=== PATIENT | female | born 1940 | race Caucasian/White ===

== ENCOUNTER → 2023-11-12 11:24 | Outpatient (REF) | payer MEDICARE, BC, SELFPAY | LOC: MRI 3T 11:24 | PROVIDERS: ATTENDING PHYSICIAN Orthopaedic Surgery; FAMILY PHYSICIAN Family Medicine | DX: M54.50 Low back pain, unspecified (principal) | CPT/HCPCS: 72148 ==

== ENCOUNTER → 2023-12-04 07:18 | Outpatient (REF) | payer MEDICARE, BC, SELFPAY ==
[2023-12-04] MEDS: LEXISCAN 0.400000000000000022 MG IV (09:27)
[2023-12-04] MEDS: FLUSH (NSS) 1 FLUSH IV (09:27)
== END ==
LOC: RCS 07:18
PROVIDERS: ATTENDING PHYSICIAN Internal Medicine Cardiovascular Disease; FAMILY PHYSICIAN Family Medicine
DX: R07.9 Chest pain, unspecified (principal)
CPT/HCPCS: 78452; 93017; A9500; J2785

== ENCOUNTER 2023-12-06 06:07 | Inpatient (IN) | payer MEDICARE, BC, SELFPAY ==
--- NOTE | 2023-10-31 09:43 | CM ---
Patient is scheduled for an elective R TKR on 12/06/23. Spoke with patient prior to surgery via telephone. Patient had a L TKR at in 2019. Reintroduced role of Orthopedic Navigator. Patient reports that she lives alone in a two story home. There
are four steps to enter (left ascending rail) and a flight of steps to the second floor (right ascending rail). There is no first floor bathroom. She currently functions independently and occasionally uses a cane. She also has a rolling walker. She
has never had VN services. PCP is Zana Lou.
Discussed orthopedic program and post surgical plans. Reviewed anticipated length of stay and that goal is for her to return home at discharge. Also reviewed outpatient PT and DME she will need. Patient is in agreement with tentative plan and states
that her son and then a friend will stay with her. She will go directly to outpatient PT at [facility].
Patient will complete online education.
Plan: Orthopedic Navigator will remain available to assist with the care of patient and will reassess discharge needs after surgery.
[2023-11-15 08:17] VITALS: BMI 32.0
[2023-11-15 08:55] LABS: Hematocrit 39.5 % (37.0-47.0); Hemoglobin 13.1 g/dL (12.0-16.0); Mean Corp Hgb Conc. 33.2 g/dL (33.0-37.0); Mean Corpuscular Hgb 29.1 pg (27.0-31.0); Mean Corpuscular Volume 87.8 fL (81.0-99.0); Mean Platelet Volume 9.8 fL (7.4-10.4); Platelet Count 215 10^3/uL (130-400); White Blood Cell Count 6.3 10^3/uL (4.8-10.8)
[2023-11-15 09:09] LABS: ALT (SGPT) 14 U/L (0-35); AST (SGOT) 22 U/L (14-36); Albumin 4.1 g/dl (3.5-5.0); Alkaline Phosphatase 94 U/L (38-126); Blood Urea Nitrogen 17 mg/dl (7-17); Calcium 9.9 mg/dl (8.4-10.2); Carbon Dioxide 27 mmol/L (22-30); Chloride 103 mmol/L (98-107); Estimated Creatinine Clearance 58 ml/min; Glucose 99 mg/dl (70-99); Potassium 4.2 mmol/L (3.5-5.1); Sodium 137 mmol/L (135-145); Total Bilirubin 0.8 mg/dl (0.2-1.3); Total Protein 7.1 g/dl (6.3-8.2); eGFR > 60.00
[2023-11-15 16:11] VITALS: BMI 32.0
[2023-12-06] VITALS (25 sets, daily range): BP systolic 120–229; BP diastolic 57–183; PULSE 93–97; O2SAT 98; BMI 32.0
[2023-12-06] MEDS: CELEBREX 200 MG PO (06:59)
[2023-12-06] MEDS: TYLENOL 650 MG PO ×3 (06:59→19:43)
[2023-12-06] MEDS: NORMOSOL-R 1000 IV ×2 (07:00→11:17)
[2023-12-06 07:07] LABS: Glucose - Point of Care 107 mg/dl (70-99)
[2023-12-06 10:41] LABS: Glucose - Point of Care 112 mg/dl (70-99)
[2023-12-06] MEDS: APRESOLINE 5 MG IV ×3 (11:00→11:30)
[2023-12-06] MEDS: DILAUDID 0.25 MG IV (11:28)
[2023-12-06 11:48] LABS: Glucose - Point of Care 99 mg/dl (70-99)
[2023-12-06 14:17] LABS: Glucose - Point of Care 124 mg/dl (70-99)
[2023-12-06] MEDS: TYLENOL PO (15:16)
[2023-12-06] MEDS: ANCEF 5 IV (15:23)
[2023-12-06] MEDS: ZOFRAN 4 MG IV (15:32)
--- NOTE | 2023-12-06 15:42 | PTCARENOTE ---
Patient reporting nausea, dizziness while in chair. BP 84/48, diaphoretic. Assisted back into bed, placed in Trendelenberg position. BP reassessed, now 131/64. Given zofran. Now reporting relief of symptoms.
[2023-12-06 17:12] LABS: Glucose - Point of Care 169 mg/dl (70-99)
[2023-12-06] MEDS: LIPITOR 10 MG PO (17:47)
[2023-12-06] MEDS: ASPIRIN 325 MG PO (17:47)
[2023-12-06] MEDS: TORADOL 15 MG IV (17:50)
[2023-12-06] MEDS: NOVOLOG FLEXPEN 4 UNITS SC (17:53)
[2023-12-06] MEDS: NOVOLOG FLEXPEN-MODERATE RESISTANCE 1 UNITS SC (17:53)
[2023-12-06] MEDS: GLUCOPHAGE 500 MG PO (17:53)
[2023-12-06] MEDS: BACTROBAN 2% OINTMENT 1 APPLIC NASAL (19:43)
[2023-12-06] MEDS: SENOKOT 17.1999999999999993 MG PO (19:44)
[2023-12-06] MEDS: COLACE 100 MG PO (19:44)
[2023-12-06 21:22] LABS: Glucose - Point of Care 216 mg/dl (70-99)
[2023-12-06] MEDS: NEURONTIN 300 MG PO (22:07)
[2023-12-06] MEDS: PEPCID 40 MG PO (22:08)
[2023-12-07] MEDS: ANCEF 5 IV (00:07)
[2023-12-07] MEDS: TYLENOL PO ×2 (00:10→04:27)
[2023-12-07 03:05] VITALS: BP 139/68
[2023-12-07] MEDS: TORADOL IV (05:46)
[2023-12-07 07:29] LABS: Glucose - Point of Care 160 mg/dl (70-99)
[2023-12-07 07:53] VITALS: BP 122/71
[2023-12-07] MEDS: SENOKOT 17.1999999999999993 MG PO (08:07)
[2023-12-07] MEDS: TYLENOL 650 MG PO (08:07)
[2023-12-07] MEDS: ASPIRIN 325 MG PO (08:07)
[2023-12-07] MEDS: MOBIC 15 MG PO (08:08)
[2023-12-07] MEDS: COLACE 100 MG PO (08:08)
[2023-12-07] MEDS: GLUCOPHAGE 500 MG PO (08:08)
[2023-12-07] MEDS: BACTROBAN 2% OINTMENT 1 APPLIC NASAL (08:10)
[2023-12-07] MEDS: NOVOLOG FLEXPEN-MODERATE RESISTANCE 1 UNITS SC (08:10)
[2023-12-07] MEDS: NOVOLOG FLEXPEN 4 UNITS SC (08:11)
[2023-12-07 09:38] VITALS: BP 156/70
--- NOTE | 2023-12-07 10:07 | CM ---
Addendum entered by Maria A Garcia 12/07/23 10:15:
Met with patient and her son, Eugenio, after therapy. Reinforced to both that patient needs to use the walker at home. Also explained that commode is being issued since she has no first floor bathroom. Son confirmed that he will be staying with
patient. Neither have any concerns about discharge.
Original Note:
Reviewed chart and held rounds with PT, OT and nursing. Patient admitted as planned for elective R TKR. Met with patient at bedside. Confirmed information previously obtained for assessment. Also discussed discharge plans. The plan is for patient to
return home at discharge. Her son and a friend will be staying with her when she first goes home. Patient will go directly to outpatient PT and will go to [facility]. She has an appointment scheduled for Sunday, 12/09. Reviewed need to schedule
follow up appointment with PA in Dr. Wilkins's office for staple removal.
Patient has a rolling walker and cane. She will need a commode issued for home use as she has no first floor bathroom. Script obtained and given to OT.
She will use [facility] for discharge prescriptions.
[2023-12-07 10:08] VITALS: BP 156/72; PULSE 88; O2SAT 94
--- NOTE | 2023-12-07 10:30 | W.PN.ORTHO ---
Today's Communication / Plan
-
d/c
Assessment
.
Distal Motor Intact: Yes
Dressing:
Clean, dry and intact.
Plan
.
Surgery / Date: 12/06/[address] Wilkins
DVT Prophylaxis: Aspirin
Activity:
Out of bed.
PT/OT
Discharge Plan: Home w/ Outpatient PT
Subjective
.
.:
Patient resting comfortably.
Vital Signs and Labs
.
Vital Signs and Labs:
Lab Results
11/15/23 08:09
11/15/23 08:09
Temp Pulse Resp BP Pulse Ox
98.9 F 103 19 122/71 95
12/07/23 07:53 12/07/23 07:53 12/07/23 07:53 12/07/23 07:53 12/07/23 07:53
Non-invasive Hgb result: 11.6
Physical Exam
-
HEENT: No pallor, cyanosis, or jaundice.
EXTREMITIES: strength equal, no calf pain with palpation
FIBERGLASS ROVING WINDER: AOx3.lay out machine operator grossly intact
--- NOTE | 2023-12-07 10:46 | W.DS.TRANS ---
DC Summary - Attending Anesthesiologist
-
Discharge Instructions:
Sleep Apnea Risk Low
Discharge Diagnosis/Procedures 12/06/[address] Wilkins
Diet Diabetic, Carb Controlled
Activity With Walker,With assistance
Driving Restrictions No driving
Bathing Restrictions OK to Shower
Other Services PT
Instructions:
Stand-Alone Forms: Total Hip/Knee Replacement D/C
Changes to Home Medications: Yes
Discharge Medications:
DC Medications w/original date entered in [employer]
Biofreeze (menthol) 1 applic topical DAILYPRN PRN apply to lower back 08/20/23
ibuprofen 200 mg tablet (Advil) 400 mg PO PRN PRN pain 08/20/23
losartan 25 mg tablet 50 mg PO DAILY 08/20/23
metformin 500 mg tablet 500 mg PO BID 08/20/23
simvastatin 10 mg tablet 10 mg PO QPM 08/20/23
therapeutic multivitamin 1 tab PO DAILY 08/20/23
multivitamin with minerals (Hair,Skin and Nails tablet) 2 tab PO DAILY 11/09/23
mupirocin 2 % topical ointment 1 applic topical BID infection prevention #1 tube 11/15/23
Saccharomyces boulardii 250 mg capsule (Florastor) 250 mg PO BID #1 cap 12/07/23
acetaminophen 325 mg capsule (Tylenol) 650 mg (2 x 325 mg) PO QID #2 caps 12/07/23
aspirin 325 mg tablet 325 mg PO DAILY blood clot prevention #1 tab 12/07/23
cefadroxil 500 mg capsule 500 mg PO BID infection prevention #14 caps 12/07/23
celecoxib 200 mg capsule 200 mg PO DAILY anti-inflammatory #14 caps 12/07/23
docusate sodium 100 mg capsule (Colace) 100 mg PO BID stool softner #1 cap 12/07/23
famotidine 20 mg tablet 20 mg PO HS GI prophylaxis #30 tabs 12/07/23
gabapentin 300 mg capsule 300 mg PO HS sleep/pain #10 caps 12/07/23
magnesium hydroxide 400 mg/5 mL oral suspension (Milk of Magnesia) 30 ml PO HS PRN Constipation #1 mL 12/07/23
ondansetron 4 mg disintegrating tablet 4 mg PO Q6H PRN n/v #20 tabs 12/07/23
sennosides 8.6 mg tablet (Senokot) 17.2 mg (2 x 8.6 mg) PO BID laxative #2 tabs 12/07/23
tramadol 50 mg tablet 50 mg PO Q6H PRN 1 tab moderate pain, 2 if severe #30 tabs 12/07/23
Home Medication Changes
aspirin 325 mg tablet 325 mg PO DAILY blood clot prevention #1 tab 12/07/23�
cefadroxil 500 mg capsule 500 mg PO BID infection prevention #14 caps 12/07/23�
celecoxib 200 mg capsule 200 mg PO DAILY anti-inflammatory #14 caps 12/07/23�
famotidine 20 mg tablet 20 mg PO HS GI prophylaxis #30 tabs 12/07/23�
gabapentin 300 mg capsule 300 mg PO HS sleep/pain #10 caps 12/07/23�
ondansetron 4 mg disintegrating tablet 4 mg PO Q6H PRN n/v #20 tabs 12/07/23�
tramadol 50 mg tablet 50 mg PO Q6H PRN 1 tab moderate pain, 2 if severe #30 tabs 12/07/23�
Pending Results: No
[2023-12-07 11:04] VITALS: BP 140/62
[2023-12-07 11:06] VITALS: BP 156/72; PULSE 88; O2SAT 94
== END 2023-12-07 11:25 | disposition home or self-care (01) | DRG 470 ==
LOC: 2 SOUTH 06:07
PROVIDERS: ADMITTING PHYSICIAN Orthopaedic Surgery; FAMILY PHYSICIAN Family Medicine
PROC: 0SRC0J9 Replacement of Right Knee Joint with Synthetic Substitute, Cemented, Open Approach (ICD-10-PCS; 2023-12-06)
DX: M17.11 Unilateral primary osteoarthritis, right knee (principal)
CPT/HCPCS: 36415; 73560; 78452; 80053; 82962; 83036; 85027; 87070; 93005; 97110; 97116; 97162; 97166; 97535; A9500; C1713; C1776

== ENCOUNTER → 2025-03-31 10:42 | Outpatient (REF) | payer MEDICARE, BC, SELFPAY | LOC: WDC 10:42 | PROVIDERS: ATTENDING PHYSICIAN Family Medicine; FAMILY PHYSICIAN Family Medicine | DX: Z12.31 Encounter for screening mammogram for malignant neoplasm of breast (principal) | CPT/HCPCS: 77063; 77067 ==

== ENCOUNTER 2025-04-03 17:14 | Inpatient (IN) | payer MEDICARE, BC, SELFPAY ==
[2025-04-03] VITALS (18 sets, daily range): BP systolic 80–225; BP diastolic 40–106; BMI 33.2; BMI 32.2
[2025-04-03 15:05] LABS: Hematocrit 34.5 % (37.0-47.0); Hemoglobin 11.7 g/dL (12.0-16.0); Mean Corp Hgb Conc. 33.9 g/dL (33.0-37.0); Mean Corpuscular Volume 87.1 fL (81.0-99.0); Nucleated Red Blood Cells % 0 %; Platelet Count 192 10^3/uL (130-400); Red Cell Dist. Width 13.8 % (11.5-14.5)
[2025-04-03] MEDS: DILAUDID 1 MG IV (15:11)
[2025-04-03] MEDS: ZOFRAN 4 MG IV ×2 (15:11→16:20)
[2025-04-03 15:17] LABS: ALT (SGPT) 13 U/L (0-35); AST (SGOT) 20 U/L (14-36); Albumin 3.7 g/dl (3.5-5.0); Alkaline Phosphatase 99 U/L (38-126); Blood Urea Nitrogen 15 mg/dl (7-17); Calcium 9.0 mg/dl (8.4-10.2); Carbon Dioxide 29 mmol/L (22-30); Chloride 103 mmol/L (98-107); Estimated Creatinine Clearance 57 ml/min; Glucose 119 mg/dl (70-99); Potassium 3.8 mmol/L (3.5-5.1); Sodium 137 mmol/L (135-145); Total Protein 6.1 g/dl (6.3-8.2); eGFR > 60.00
--- NOTE | 2025-04-03 16:17 | ED.GENMED ---
History of Present Illness
General
Chief Complaint: Musculo-Skeletal Complaint
Source: patient and ambulance crew
Time Seen by Provider: 04/03/25 15:00
Nursing documentation reviewed up to this point in time: agreed with
History of Present Illness
History of Present Illness:
Note:
CHIEF COMPLAINT(S)
Right hip pain following a fall.
HISTORY OF PRESENT ILLNESS
The patient is an 84-year-old individual who reports falling at home while carrying packages from their car. The patient states, 'I got out of my car, and Kindra been seven of the three packages.' The fall resulted in immediate pain localized to the
right hip area. The patient observed that the right leg appears shortened and externally rotated, indicating a potential injury. The patient denies hitting their head or experiencing any other injuries from the fall. There is significant concern for
a fracture given these clinical signs, and the patient reports significant pain in the affected area.
PAST MEDICAL AND SURIGICAL HISTORY
The patient has undergone bilateral knee replacements in the past.
MEDICATIONS
The patient is currently taking medication for blood pressure and Metformin for diabetes.
REVIEW OF SYSTEMS
- Musculoskeletal: Reports right hip pain following a fall, with the right leg appearing shortened and externally rotated.
- Endocrine: Has a history of diabetes, managed with Metformin.
PHYSICAL EXAM
- General: Alert, no acute distress.
- Skin: Warm, dry.
- Head: Normocephalic, atraumatic.
- Neck: Supple, trachea midline.
- Eye, Ears, Nose, Mouth, and Throat: Oral mucosa moist.
- Cardiovascular: Normal peripheral perfusion, no edema.
- Respiratory: Respirations are non-labored, lungs clear.
- Musculoskeletal: Right leg shortened and externally rotated, indicative of trauma. Scars present in midline vertically on bilateral knees.
- Neurological: Alert and oriented to person, place, time, and situation, no focal neurological deficit observed.
- Psychiatric: Cooperative, appropriate mood & affect.
PLAN
- Administer pain medication for hip discomfort.
- Obtain X-rays to confirm suspicion of fracture and assess the extent of injury.
- Discuss potential need for hospital admission for surgical intervention following the review of imaging results.
DIFFERENTIAL DIAGNOSIS
The Differential Diagnosis includes, in no particular order and is not limited to:
1. Hip fracture
2. Hip dislocation
3. Femoral neck fracture
4. Radiological examination pending fracture
5. Pelvic fracture
6. Osteoarthritis exacerbation
7. Hip contusion
8. Trochanteric bursitis
9. Acetabular fracture
10. Sacral insufficiency fracture
CARE-UPDATE
04/03/25 - 16:28
X-ray confirms intertrochanteric fracture of the right hip. Patient will be admitted to hospitalists with orders to remain NPO after midnight in preparation for surgery scheduled for tomorrow.
EKG
My independent EKG interpretation is:
- Time of EKG: Not specified
- Rhythm: Normal sinus rhythm
- Heart Rate: 77
- OR Interval: normal
- QRS Duration: Normal
- QT Interval: Normal
- [place]: Normal
- Abnormalities: No signs of ischemia indicated
Disposition:
SUMMARY OF ENCOUNTER
The patient is an 84-year-old individual who presented to the emergency department following a fall at home. The patient experienced immediate right hip pain, with observable physical signs of trauma including a shortened and externally rotated
right leg. An X-ray confirmed an intertrochanteric fracture of the right hip. Given the risk factors and confirmation of a fracture, the patient was managed with plans for surgical intervention.
DISPOSITION
Admit
ASSESSMENT
Intertrochanteric fracture of the right femur.
PLAN
The patient will be admitted under the care of hospitalists. An orthopedic consultation has been obtained. Patient will remain NPO after midnight in preparation for surgery scheduled for the following day.
INDEPENDENT REVIEW OF LABS AND INTERPRETATION OF TESTS
- My independent X-ray interpretation confirms the intertrochanteric fracture of the right hip.
MANAGEMENT OF THE PATIENTS CARE WAS DISCUSSED WITH
Orthopedics consulted.
MEDICAL DECISION MAKING
-Complexity of Data Reviewed: Chronic conditions affecting care [bilateral knee replacements, hypertension, diabetes]
Data:
Category 1
My independent interpretation of the X-ray confirms an intertrochanteric fracture of the right hip.
-Risk:
Prescription medication was prescribed for pain management.
DIAGNOSIS
- Intertrochanteric fracture of the right femur (ICD-10-CM S72.143A)
Phy Exam
Physical Exam
Physical Exam:
.
Course
Orders/Labs/Results
Orders:
Orders
04/03/25 14:44
Hip, Right 2-3 Views [CR Hip - RT w/wo Pel 2-3 Vw*] Urgent
Comment:
Reason For Exam: pain after a fall
Include a pelvis x-ray?: Yes
04/03/25 14:56
Complete Blood Count/With Diff Urgent
Comprehensive Metabolic Panel Urgent
04/03/25 15:00
HYDROmorphone [Dilaudid] 1 mg IV NOW STA
Ondansetron Injectable [Zofran] 4 mg IV NOW STA
04/03/25 15:01
Electrocardiogram (*1) Stat
Reason for Study: PreOp
Electrocardiogram (*1) Urgent
EKG- Treatment ONCE
04/03/25 15:13
Type+Screen Urgent
04/03/25 16:16
Ondansetron Injectable [Zofran] 4 mg IV NOW STA
Abnormal Lab Results
04/03/25
14:56
RBC 3.96 L 10^6/uL
(4.20-5.40)
Hgb 11.7 L g/dL
(12.0-16.0)
Hct 34.5 L %
(37.0-47.0)
Glucose 119 H mg/dl
(70-99)
Total Protein 6.1 L g/dl
(6.3-8.2)
04/03/25 14:56
04/03/25 14:56
Vital Signs
Initial and Last Documented VS:
Initial Vital Signs
Temp Pulse Resp BP Pulse Ox
98.3 F 82 18 195/90 95
04/03/25 14:36 04/03/25 14:36 04/03/25 14:36 04/03/25 14:36 04/03/25 14:36
Last Documented Vital Signs
Temp Pulse Resp BP Pulse Ox
98.3 F 82 18 195/90 95
04/03/25 14:36 04/03/25 14:36 04/03/25 14:36 04/03/25 14:36 04/03/25 16:20
*Pulse Oximetry
SaO2: 95
Oxygen Mode of Delivery: Room air
Patient hypoxic: no
*Critical Care Note
Total Time (30-74mins, 75-104mins- exclusive of procedures): Not Applicable
ED Attending Note
-
Portions of this chart may have been created with voice recognition software.� Occasional wrong word or��sound alike� substitutions may have occurred due to the inherent limitations of voice recognition software.
Discharge Plan
Departure
Patient Disposition: Admit
Date of Disposition: 04/03/25
Time of Disposition: 16:15
Admit to: Med/Surg
Presentation/result/management discussed w/ accepting MD/DO: Hospitalist
Patient with high blood pressure during this ER visit?: Yes
Condition: Good
Discharge Problem:
Closed intertrochanteric fracture of right femur
Prescriptions:
No Action
metformin 500 mg Tablet
500 mg PO BID
simvastatin 10 mg Tablet
10 mg PO QPM
therapeutic multivitamin Tablet
1 tab PO DAILY
losartan 25 mg Tablet
50 mg PO DAILY
ibuprofen [Advil] 200 mg Tablet
400 mg PO PRN PRN (Reason: pain)
Biofreeze (menthol)
1 applic topical DAILYPRN PRN (Reason: apply to lower back)
Hair,Skin and Nails Tablet
2 tab PO DAILY
mupirocin 2 % ointment
1 applic topical BID Qty: 1 0RF
Patient Comments:
Patient adminisered this medication @ 05:00 today 12/06/23.
aspirin 325 mg tablet
325 mg PO DAILY Qty: 1 0RF
Rx Instructions:
Take with food
celecoxib 200 mg capsule
200 mg PO DAILY Qty: 14 0RF
Rx Instructions:
*take with food
*space out 2 hours from aspirin
cefadroxil 500 mg capsule
500 mg PO BID Qty: 14 0RF
Rx Instructions:
*Take w/ food
*Take w/ probiotic
*POST-OP USE
docusate sodium [Colace] 100 mg capsule
100 mg PO BID Qty: 1 0RF
famotidine 20 mg tablet
20 mg PO HS Qty: 30 0RF
Rx Instructions:
post-op
Saccharomyces boulardii [Florastor] 250 mg capsule
250 mg PO BID Qty: 1 0RF
gabapentin 300 mg capsule
300 mg PO HS Qty: 10 0RF
Rx Instructions:
non-narcotic
sennosides [Senokot] 8.6 mg tablet
17.2 mg PO BID Qty: 2 0RF
magnesium hydroxide [Milk of Magnesia] 400 mg/5 mL suspension
30 ml PO HS PRN (Reason: Constipation) Qty: 1 0RF
ondansetron 4 mg tablet,disintegrating
4 mg PO Q6H PRN (Reason: n/v) Qty: 20 0RF
Rx Instructions:
take 1/2h b/f pain med if recurrent nausea
allow to dissolve in mouth w/o water
acetaminophen [Tylenol] 325 mg capsule
650 mg PO QID Qty: 2 0RF
tramadol 50 mg tablet
50 mg PO Q6H PRN (Reason: 1 tab moderate pain, 2 if severe) Qty: 30 0RF
Rx Instructions:
ongoing therapy
Referrals:
Zana Lou DO [Family Provider, Family Practice]
Interventions
Interventions:
*Risk Screen - Suicide Last Done: 04/03/25 14:36
*General Assessment Last Done: 04/03/25 14:36
*Neglect/Abuse Screening Last Done: 04/03/25 14:36
*ED- Fall Risk Assessment Last Done: 04/03/25 14:41
*ED COVID-19 Vaccine History Last Done: 04/03/25 14:41
ED-Musculoskeletal Assessment Last Done: 04/03/25 14:43
Discharge Date and Time
Print Language: AZERBAIJANI
--- NOTE | 2025-04-03 16:17 | HPS.HSE ---
Addendum entered and electronically signed by Quoc Valdovinos MD 04/03/25 17:27:
This is an addendum to H&P written by Marisela Gerber on 04/03/2025. �Patient seen and examined independently with DIRECTOR TRIAL.
84-year-old female past medical history of hypertension, hypercholesteremia, osteoarthritis, diabetes, presenting with mechanical fall with injury to right hip. Has csome chest pain after the fall.�
Vital signs show blood pressure up to 225/89. Chest tender to palpation.�
Labs unremarkable.
Hip x-ray shows comminuted and mildly displaced intertrochanteric fracture which extends into proximal femur.
Tylenol, Dilaudid, Percocet as needed for pain. �Orthopedics consulted. �N.p.o. postmidnight for surgery tomorrow. �Patient without any prior cardiac history and low risk for post cardiac complications. �Hopefully blood pressure should improve with
pain control.
Original Note:
Family Physician
-
Family Physician: Zana Lou
Chief Complaint
-
right hip pain
History of Present Illness
Patient is a 84-year-old female with past medical history significant for hypertension, hyperlipidemia and DM - II who presented to [facility] ED for evaluation of right hip pain. Patient reports that she was carrying bags of groceries into the house when
she missed the curb and fell landing on her right hip. She denies any head strike. Denies any other discomfort or injuries.
Medical History
Past Medical History
Past Medical History: Reports Other
Additional Past Medical History:
hypertension
hyperlipidemia
DM - II
Past Surgical History: Reports Other
Additional Past Surgical History:
Arthroscopy with chondroplasty, medial meniscectomy + partial synovectomy - left - 04/02/18
Left TKR - 05/22/2019
Rt arm Surgery w/ Glenn
Appendectomy
X2
cataract bilateral
Right TKA 12/06/2023 DB
RT L3-4 ILESI NO SED 01/21/24
RT L3-4 ILESI NO SED 08.27.24
Social History
Tobacco: Non-smoker
Alcohol: Occasional (rare)
Drug: None
Living: Alone
Family History
Family History: Not pertinent
Allergies / Home Medications
Allergies reflects when Allergies were last updated in [employer].
Home Medications with original date entered in [employer]
Allergy/Medication List:
Allergies
Allergy/AdvReac Type Severity Reaction Status Date / Time
No Known Allergies Allergy Verified 04/03/25 14:35
Home Medications
losartan 25 mg tablet 25 mg PO BID Blood Pressure 08/20/23
metformin 500 mg tablet 500 mg PO BID@0800,1700 Diabetes 08/20/23
simvastatin 10 mg tablet 10 mg PO QPM High Cholesterol 08/20/23
therapeutic multivitamin 1 tab PO DAILY Supplement 08/20/23
biotin 5,000 mcg sublingual tablet 5,000 mcg sublingual DAILY Supplement 04/03/25
multivitamin with minerals (Hair,Skin and Nails tablet) 1 tab PO DAILY Supplement 04/03/25
Review of Systems
-
History Source: Patient
Constitutional: Reports No Symptoms
EENT: Reports No Symptoms
Respiratory: Reports No Symptoms
Cardiac: Reports No Symptoms
Abdomen/GI: Reports No Symptoms
: Reports No Symptoms
Musculoskeletal: Reports Joint Pain (right hip pain )
Skin: Reports No Symptoms
Neurological: Reports No Symptoms
Endocrine: Reports No Symptoms
Hematologic/Lymphatic: Reports No Symptoms
Psych: Reports No Symptoms
Physical Exam
Vital Signs
Vital Signs
Temp Pulse Resp BP Pulse Ox
98.3 F 82 18 195/90 95
04/03/25 14:36 04/03/25 14:36 04/03/25 14:36 04/03/25 14:36 04/03/25 14:36
Physical Exam
General: Well Developed, Well Nourished, No Apparent Distress, Conversant, Pain and Obese
HEENT: NormoCephalic, Moist mucous membranes and Atraumatic
Respiratory: Clear and Non Labored Respirations
Cardiac: S1/S2 and Regular Rhythm; No Murmur, Rub or Gallop
Breast: Deferred by me
GI: Soft, Non Tender, Non Distended and Normal Bowel Sounds
Rectal: Deferred by Provider
Genito-urinary: Deferred by me
Musculoskeletal: No Clubbing, No Cyanosis and Other (right hip pain, right leg shortened and externally rotated)
Skin: Warm and IV/Catheter Site
Neuro: Awake, AO x 3 and Nonfocal/grossly intact
Psych: Calm and Intact Judgment/Insight
Laboratory Results
-
04/03/25 14:56
04/03/25 14:56
Laboratory Results
Total Bilirubin 0.7 mg/dl (0.2-1.3) 04/03/25 14:56
AST 20 U/L (14-36) 04/03/25 14:56
ALT 13 U/L (0-35) 04/03/25 14:56
Alkaline Phosphatase 99 U/L (38-126) 04/03/25 14:56
Data Reviewed
-
Diagnostic Radiology: Report Reviewed by me (Rt hip: Comminuted and mildly displaced intertrochanteric fracture which extends into the proximal femur.)
Medical Tests (Nuc Med, Echo, EKG etc): Discussed with Physician (EKG: NORMAL SINUS RHYTHM CANNOT RULE OUT ANTERIOR INFARCT (CITED ON OR BEFORE 06-Dec-2023))
Lab Data: Labs Reviewed by me
Impression/Plan
-
IMPRESSION/PLAN:
#intertrochanteric fracture of right femur 2/2 mechanical fall
EKG: NORMAL SINUS RHYTHM
CANNOT RULE OUT ANTERIOR INFARCT (CITED ON OR BEFORE 06-Dec-2023)
right hip x-ray: Comminuted and mildly displaced intertrochanteric fracture which extends into the proximal femur.
- Admit to med/surg
- Consult Orthopedics
- pain regimen
- antiemetics
#hypertension
- continue losartan
#hyperlipidemia
- continue simvastatin
#DM - II
- hold metformin
- AccuCheck AC & HS
- SSI
Code status: full code
DVT prophylaxis: Lovenox sq
[2025-04-03] MEDS: LIPITOR 10 MG PO (21:39)
[2025-04-03] MEDS: COZAAR PO (22:02)
[2025-04-03] MEDS: NSS 500 IV (22:11)
[2025-04-03 22:20] LABS: Glucose - Point of Care 178 mg/dl (70-99)
--- NOTE | 2025-04-03 22:40 | TRANSFER ---
Received pt from ED at 1915 dx close right femur fx, RLE shortened and externally rotated. Right hip developing bruise. Pt has N/V w pain medications, given emesis bag. No c/o pain at time of assessment. VS as documented. Purewick in place, bed in
lowest position. Call jaquez within reach. Patient and family updated on plan of care.
[2025-04-03] MEDS: NSS 1000 IV (23:25)
[2025-04-04] VITALS (10 sets, daily range): BP systolic 96–144; BP diastolic 54–66; PULSE 87–90; O2SAT 98
--- NOTE | 2025-04-04 07:25 | CON.ORTHO ---
Consultation
-
Date/Time Consultation Requested: 04/03/2025; time unknown
Date/Time Consultation Performed: 04/04/2025; 0715
Requesting Provider: unknown
Performing Provider: Autumn Mayer PA-C / Dr. Sukhdeep Cornejo
Reason for Consultation: Right intertrochanteric femur fracture
Consultation - Orthopedics
History
Ms. Brantley is an 84 year old female with PMH of hypertension, hyperlipidemia and DM - II seen today for her right hip. She reports she was carrying three large bags into the house yesterday when she lost her balance and fell. She reports immediate
onset of pain in the hip, and was unable to get up off the ground. She was able to call her neighbor who was also unable to help her get up. She was brought to via EMS where x-rays revealed an intertrochanteric femur fracture. She is resting
comfortably in bed this morning. She endorses pain in the hip with movement, but denies pain elsewhere.
Allergies / Home Medications
Allergy/AdvReac Type Severity Reaction Status Date / Time
No Known Allergies Allergy Verified 04/03/25 14:35
�Medication �Instructions �Recorded
losartan 25 mg tablet 25 mg PO BID Blood Pressure 08/20/23
metformin 500 mg tablet 500 mg PO BID@0800,1700 Diabetes 08/20/23
simvastatin 10 mg tablet 10 mg PO QPM High Cholesterol 08/20/23
therapeutic multivitamin 1 tab PO DAILY Supplement 08/20/23
biotin 5,000 mcg sublingual tablet 5,000 mcg sublingual DAILY 04/03/25
Supplement
docusate sodium 100 mg capsule 200 mg PO PRN constipation 04/03/25
(Colace)
multivitamin with minerals 1 tab PO DAILY Supplement 04/03/25
(Hair,Skin and Nails tablet)
Vital Signs / Lab Results
Temp Pulse Resp BP Pulse Ox
97.7 F 79 17 107/71 97
04/03/25 23:06 04/03/25 23:20 04/03/25 19:50 04/03/25 23:20 04/03/25 23:06
04/03/25 14:56
04/03/25 14:56
IMPRESSION:
Comminuted and mildly displaced intertrochanteric fracture which extends into the proximal femur.
Directed exam of the right lower extremity reveals leg shortened and externally rotated. No significant tenderness about the hip. Thigh soft and compressible. ROM deferred secondary to known fracture. Positive log roll. Calf soft and nontender.
Patient able to wiggle toes, plantar and dorsiflex ankle. Neurovascularly intact distally.
Assessment / Plan
Right intertrochanteric femur fracture
--Unfortunately, Genny sustained a right intertrochanteric femur fracture in her fall. I recommend proceeding with a right hip cephalomedullary nail. The risks, benefits, alternatives, recovery process and potential complications were discussed in
detail. She verbalized understanding and would like to proceed with surgery. Surgical and blood consents have been signed and placed on patient chart. We will proceed to OR this morning under the direction of Dr. Cornejo.
--NPO until surgery.
--NWB until surgery.
--Pain control prn.
--T+S completed.
--Ancef ordered to OR.
--Orthopedics will continue to follow along.
--- NOTE | 2025-04-04 07:36 | W.PN.HOSP.TC ---
Today's Communication/Plan
-
se PN
Assessment / Plan
Assessment / Plan
84yo F with PMHX of oHTN, DM, HLD came after fall when she tripped over the curb while carrying groseries. No LOC reported. Found comminuted, mildly displaced and minimally impacted fracture of the proximal right femur
A/P:
#comminuted, mildly displaced and minimally impacted fracture of the proximal right femur
Ortho for mgmt
pain mgmgt
PT/OT when ready
Patient reports no recent respiratory illness, not a smoker, does not have Hx of cardiac or pulmonary disease, EKG without significant ST changes or TWI (Isolatr in single lateral lead only), considered to be low risk for intermediate risk
procedure, holding Losartan ahead of procedure
#DM type 2 with unspecified complications
Accuchecks, Insulin SS, DM diet when ready
hold metformin while inpatient
#HLD
#EssentiL HTN
cont hoem meds
DVT ppx lovenox
Full code
I have spent at least 51min reviewing chart, test results, communication with consultants and providing direct patient care
Anticipated Discharge: > 48 hours
Subjective/Interval History
-
Date of Service: April 04, 2025
Objective Data
-
Vital Signs:
Vital Signs
Temp Pulse Resp BP Pulse Ox
97.7 F 79 17 107/71 97
04/03/25 23:06 04/03/25 23:20 04/03/25 19:50 04/03/25 23:20 04/03/25 23:06
I&O
04/03/25 04/04/25 04/05/25
06:59 06:59 06:59
Intake Total 1510 / 1510
Output Total 400 / 400
Balance 1110 / 1110
Review of Systems
-
History Source: Patient
All other systems: Reviewed and negative
Physical Exam
-
General: No Apparent Distress
HEENT: Normocephalic and Hearing Impaired
Respiratory: Clear to Auscultation
GI: Soft, Nontender and Nondistended
Skin: Warm
Neuro: Awake, Alert, Oriented and AO x 3
Psych: Calm
[2025-04-04 07:46] LABS: Glucose - Point of Care 165 mg/dl (70-99)
--- NOTE | 2025-04-04 08:08 | PTCARENOTE ---
At 07:45 telephone report given to DERMATOLOGIST MANAGING PARTNERTIFFANIE Quiroz; second CHG bath completed and patient transported via bed with chart @08:05; Ancef tubed to OR to be given in procedural area.
[2025-04-04] MEDS: NOVOLOG FLEXPEN-LOW RESISTANCE SC (08:16)
--- NOTE | 2025-04-04 10:05 | CM ---
Reviewed the chart notes. Patient in OR. Patient resides alone in a two story home with four steps to enter. The patient has a cane and rolling walker. CM continues to be available to patient/family and is monitoring medical plan for needs at
discharge.
Plan: Discharge most likely to SNF/rehab once medically stable. No precert required.
[2025-04-04 10:37] LABS: Glucose - Point of Care 176 mg/dl (70-99)
--- NOTE | 2025-04-04 11:25 | PTCARENOTE ---
At 11:05 received telephone report from LAUNDRY TECH Nai including that patient had had chest pain prior to OR and EKG showed Afib RVR (HR 168) and converted to NSR following Lopressor 2mg; patient returned to [facility] post op with telemetry order (NSR
HR 85); VSS, 3 primaseal dressings to RLE with small amount of old drainage.
[2025-04-04] MEDS: ZOFRAN 4 MG IV (11:53)
[2025-04-04 12:13] LABS: Glucose - Point of Care 202 mg/dl (70-99)
[2025-04-04] MEDS: NOVOLOG FLEXPEN-LOW RESISTANCE 2 UNITS SC ×2 (12:39→17:50)
[2025-04-04] MEDS: NSS 1000 IV (13:29)
--- NOTE | 2025-04-04 16:30 | CON.CAR ---
Consultation
Consultation Request
Date/Time Consultation Requested: 04/04/2025 at 9:53 AM
Date/Time Consultation Performed: 04/04/2025 at 4 PM
Requesting Provider: Miguelito Barboza MD
Performing Provider: Dylan Castillo MD
Reason for Consultation: afib
Medical History
-
Chief Complaint: chest pressure
History of Present Illness:
84-year-old female with hypertension, hyperlipidemia, and diabetes who presented with a right femoral fracture following a mechanical fall. When she was being taken to the OR, she had chest pressure. They checked an ECG at 8:30 AM which showed
atrial fibrillation with RVR. From the anesthesia report, it looks like she converted back to normal sinus rhythm around 9 AM. Unclear what interventions were performed. She was symptomatic when she had A-fib as above. She currently denies any
symptoms and is back in normal sinus rhythm. She denies any history of heart disease. She has never smoked, does not drink alcohol, and does not have diagnosed JESISCA though she reports that her sleep is not restful. She saw Dr. Burnham in November
2023 for preoperative risk stratification prior to knee replacement. Underwent Lexiscan at that time which showed a small predominantly fixed anterior/apical perfusion defect. She was continued on medical management with statin. She also thinks
he recommended aspirin.
Past Medical History
Past Medical History: CAD (abnormal stress test), HTN and Hypercholesterolemia
Past Surgical History: Orthopedic
Social History
Tobacco: Non-Smoker
Alcohol: None
Living: With Family
Family History
Family History: Reviewed & Not Pertinent
Allergies / Home Medications
Allergy/AdvReac Type Severity Reaction Status Date / Time
No Known Allergies Allergy Verified 04/03/25 14:35
�Medication �Instructions �Recorded �Confirmed �Type
losartan 25 mg tablet 25 mg PO BID Blood Pressure 08/20/23 04/03/25 History
metformin 500 mg tablet 500 mg PO BID@0800,1700 Diabetes 08/20/23 04/03/25 History
simvastatin 10 mg tablet 10 mg PO QPM High Cholesterol 08/20/23 04/03/25 History
therapeutic multivitamin 1 tab PO DAILY Supplement 08/20/23 04/03/25 History
biotin 5,000 mcg sublingual tablet 5,000 mcg sublingual DAILY 04/03/25 04/03/25 History
Supplement
docusate sodium 100 mg capsule 200 mg PO PRN constipation 04/03/25 History
(Colace)
multivitamin with minerals 1 tab PO DAILY Supplement 04/03/25 04/03/25 History
(Hair,Skin and Nails tablet)
Review of Systems
-
All other systems: Negative unless noted
Physical Exam
Vital Signs
Temp Pulse Resp BP Pulse Ox
98.8 F 87 16 115/57 94
04/04/25 15:05 04/04/25 15:05 04/04/25 15:05 04/04/25 15:05 04/04/25 15:05
Lab Results
04/03/25 14:56
04/03/25 14:56
Physical Exam
General: Well Developed and Well Nourished
Respiratory: Clear and Non Labored Respirations
Cardiac: S1/S2 and Regular Rhythm; Negative Murmur or Peripheral Edema
Neuro: AO x 3
Impression / Plan
-
84-year-old female with hypertension, hyperlipidemia, and diabetes who presented with a right femoral fracture following a mechanical fall. Cardiology is consulted for new paroxysmal atrial fibrillation.
Paroxysmal atrial fibrillation
-Occurred at 8:30 AM on 04/04/2025. She was symptomatic with RVR. Resolved during surgery. Unclear what interventions if any were performed.
-Start low-dose beta-porfirio (metoprolol succinate 25 mg daily) and uptitrate as needed
-[id number] 6 (female, age, HTN, DM, possible CAD)
-Start Eliquis 5 mg twice daily once safe from a surgical standpoint
-If she is still here on Sunday, would get an echocardiogram. If not can defer to outpatient.
-Outpatient sleep study and lifestyle modifications recommended
Hypertension
-Monitor with the addition of metoprolol
-Continue losartan
Hyperlipidemia/DM
-Continue statin
Data Reviewed
-
EKG: Tracing Personally Visualized and interpreted, Report Reviewed by me, Discussed with Physician and Discussed with Patient
Medical Tests (Nuc Med, Echo etc): Report Reviewed by me
Labs: Labs Reviewed by me
[2025-04-04] MEDS: ANCEF 5 IV ×2 (16:49→23:52)
[2025-04-04] MEDS: LOVENOX 40 MG SC (16:56)
[2025-04-04] MEDS: LIPITOR 10 MG PO (16:56)
--- NOTE | 2025-04-04 16:56 | W.PN.UPDATE ---
Update Note
Progress Note Update
discussed bleeding risk postOP and post-trauma with ortho - expected hematoma in the thigh. Patient will need Eliquis full therapeutic AC for Afib stroke prevention as per cardio. Based on recent surgery and bleeding risk - will wait for 24h postOP
before adding full anticoagulation, since patient already in sinur rhythm. This will decrease risk of bleeding in R thigh. Agreed with cardio
[2025-04-04 17:01] LABS: Glucose - Point of Care 200 mg/dl (70-99)
[2025-04-04] MEDS: DILAUDID 0.5 MG IV (19:11)
[2025-04-04] MEDS: COLACE PO (20:06)
[2025-04-04 21:41] LABS: Glucose - Point of Care 199 mg/dl (70-99)
[2025-04-05] VITALS (11 sets, daily range): BP systolic 112–157; BP diastolic 52–79
[2025-04-05] MEDS: NSS 1000 IV (02:26)
--- NOTE | 2025-04-05 03:27 | PTCARENOTE ---
Woke patient to obtain post op vital signs, and to change incontinence pad. Patient began to cry, told staff to leave her alone. Staff educated patient on need for monitoring post op vitals, also made patient aware that she can't sit in her own
urine. Patient was changed, but would not allow vital signs. Patient became physically aggressive and demanded staff leave. Care ongoing.
[2025-04-05] MEDS: TYLENOL 650 MG PO ×3 (04:26→21:08)
--- NOTE | 2025-04-05 04:29 | PTCARENOTE ---
Deuel noises from patient's room, went to assess patient. Patient removed tele monitor. This RN explained to patient why patient needed to keep monitor in place, patient verbalized understanding. This RN walked out to get tele stickers, when
returned to room, patient was found to have removed left wrist IV. Pressure was held, when bleeding stopped dry dressing was placed. When patient was asked why patient removed her IV, the patient stated she didn't want it in anymore. RN explained
that patient should notify staff if patient needs something, patient verbalized understanding. Gown and blankets were changed. Patient agreed to have vital signs taken. Patient also stated she was soiled, and needed something for pain. Patient was
changed and given PRN tylenol. Bed alarm applied. Call jaquez within reach, care ongoing.
--- NOTE | 2025-04-05 06:39 | W.PN.UPDATE ---
Update Note
Progress Note Update
Agitated this am. Tore out her iv site and took of her diagnostic cardiac sonographer leads. Not redirectable. B/L wrist, 4 rails, and a dose of IV Valium at 0630.
[2025-04-05] MEDS: VALIUM INJECTION 2 MG IV (06:44)
--- NOTE | 2025-04-05 07:24 | PTCARENOTE ---
0615 - pt noted to have removed tele monitor and was attempting to remove gown. Patient stated hospital staff are 'hurting animals' and that 'you're all going to rot in hell'. TT METEOROLOGY PROFESSOR David, who placed new orders. Patient also removed two primaseal
dressings. Patient was soiled, incontinence pad and new primaseal dressings were applied. Patient was physically aggressive towards staff, scratching and pulling at staff members clothes and extremities. Patient was reality oriented during the
entirety of care. Care ongoing.
[2025-04-05 07:28] LABS: Glucose - Point of Care 158 mg/dl (70-99)
--- NOTE | 2025-04-05 08:00 | PTCARENOTE ---
Pt more calm and cooperative, mildly agitated. AOx3, though confused over events overnight and yesterday. Restraints removed. No aggressive behaviors observed. Agreeable to IV placement and lab draws. Called son which helped w/ reorientation. Will
continue to monitor closely. Bed alarm in place.
--- NOTE | 2025-04-05 08:13 | W.PN.ORTHO ---
Today's Communication / Plan
-
84 yo F POD1 right hip cephalomedullary nail under the direction of Dr. Cornejo
--Touch-down weight bearing to right lower extremity with assistive device. We appreciate the assistance of PT/OT.
--Eliquis for DVT ppx given new onset a-fib.
--Pain control prn. Avoid narcotics if possible given recent agitation. Ice and elevation prn for pain and edema control.
--Maintain surgical dressing x7-10 days post-op. Staple removal at 2 weeks post-op.
--Case management consult for dc planning.
--Orthopedics will continue to follow along.
Assessment
.
Distal Motor Intact: Yes
Dressing:
Clean, dry and intact.
Plan
.
Surgery / Date: Right hip cephalomedullary nail
DVT Prophylaxis: Other (Eliquis)
Activity:
Out of bed.
PT/OT
Subjective
.
.:
Ms. Brantley is POD1 following her right hip cephalomedullary nail performed by Dr. Cornejo. She was agitated this morning and allegedly removed her surgical dressings, tore out her IV and removed her cardiac leads. She was also aggressive with staff
and was placed in restraints. She is still quite agitated this morning. She is not redirectable--'Take these off of me and see what I'll do'. She denies pain in the hip at present.
Vital Signs and Labs
.
Vital Signs and Labs:
Temp Pulse Resp BP Pulse Ox
98.5 F 95 18 140/66 95
04/05/25 04:00 04/05/25 04:00 04/05/25 04:00 04/05/25 04:00 04/05/25 04:00
Physical Exam
-
Directed exam of the right lower extremity reveals surgical dressings clean, dry and intact. No significant tenderness about the hip. Thigh soft and compressible. Calf soft and nontender. Patient able to wiggle toes, plantar and dorsiflex ankle.
Neurovascularly intact distally.
[2025-04-05] MEDS: NSS IV (08:40)
[2025-04-05] MEDS: NOVOLOG FLEXPEN-LOW RESISTANCE SC ×2 (08:40→17:22)
[2025-04-05] MEDS: COLACE 100 MG PO ×2 (08:48→21:07)
[2025-04-05] MEDS: TOPROL XL 25 MG PO ×2 (08:48→21:07)
[2025-04-05] MEDS: COZAAR 25 MG PO ×2 (08:49→21:08)
--- NOTE | 2025-04-05 10:11 | W.PN.CARDCBS ---
Today's Communication / Plan
-
Remains in sinus rhythm. Increase Toprol to 25 mg p.o. twice daily. Continue losartan.
[id number] score is 6. Would start Eliquis when okay with orthopedics.
Echo in AM if pt still in hospital.
Impression / Plan
-
84-year-old female with hypertension, hyperlipidemia, and diabetes who presented with a right femoral fracture following a mechanical fall. Cardiology is consulted for new paroxysmal atrial fibrillation.
Paroxysmal atrial fibrillation
-Occurred at 8:30 AM on 04/04/2025. She was symptomatic with RVR. Resolved during surgery.
-Increase Toprol XL to 25 mg p.o. twice daily. Continue losartan.
-[id number] 6 (female, age, HTN, DM, possible CAD)
-Start Eliquis 5 mg twice daily once safe from a surgical standpoint
-Check echocardiogram in a.m. if patient is still hospitalized. If not can do as outpatient.
-Outpatient sleep study and lifestyle modifications recommended
Hypertension
-Monitor with the addition of metoprolol
-Continue losartan
Hyperlipidemia/DM
-Continue statin
Progress Note - Property Investor
Subjective
Date of Service: April 05, 2025
Denies chest pain and shortness of breath. Remains in sinus rhythm.
Objective
Labs:
Labs
Hgb 11.7 g/dL (12.0-16.0) L 04/03/25 14:56
Hct 34.5 % (37.0-47.0) L 04/03/25 14:56
Plt Count 192 10^3/uL (130-400) 04/03/25 14:56
Sodium 137 mmol/L (135-145) 04/03/25 14:56
Potassium 3.8 mmol/L (3.5-5.1) 04/03/25 14:56
BUN 15 mg/dl (7-17) 04/03/25 14:56
Creatinine 0.7 mg/dL (0.6-1.0) 04/03/25 14:56
Glucose 119 mg/dl (70-99) H 04/03/25 14:56
Vital Signs and I&O:
Vital Signs
Temp Pulse Resp BP Pulse Ox
97.0 F 117 24 133/61 95
04/05/25 08:00 04/05/25 08:48 04/05/25 08:00 04/05/25 08:48 04/05/25 08:00
Vital Signs
Temp Pulse Resp BP Pulse Ox
97.0 F 117 24 133/61 95
04/05/25 08:00 04/05/25 08:48 04/05/25 08:00 04/05/25 08:48 04/05/25 08:00
Intake & Output
04/03/25 04/04/25 04/05/25 04/06/25
06:59 06:59 06:59 06:59
Intake Total 1510 / 1510 870 / 870
Output Total 400 / 400
Balance 1110 / 1110 870 / 870
Physical Exam
Physical Exam
GEN: No distress, awake, Ox3
HEENT: supple, anicteric, mmm
LUNGS: CTA, no wheezes/rales
CV: Reg, S1/S2, 1/6 syst LSB, no gallop
ABD: soft, BS+, NT/ND
EXT: No edema
NEURO: Gross non-focal
SKIN: No rash
[2025-04-05 10:12] LABS: Hematocrit 18.8 % (37.0-47.0); Hemoglobin 6.3 g/dL (12.0-16.0); Mean Corp Hgb Conc. 33.5 g/dL (33.0-37.0); Mean Corpuscular Volume 88.3 fL (81.0-99.0); Nucleated Red Blood Cells % 0 %; Platelet Count 132 10^3/uL (130-400); Red Cell Dist. Width 14.2 % (11.5-14.5)
[2025-04-05 10:21] LABS: ALT (SGPT) 12 U/L (0-35); AST (SGOT) 29 U/L (14-36); Albumin 2.8 g/dl (3.5-5.0); Alkaline Phosphatase 73 U/L (38-126); Blood Urea Nitrogen 23 mg/dl (7-17); Calcium 8.0 mg/dl (8.4-10.2); Carbon Dioxide 30 mmol/L (22-30); Chloride 106 mmol/L (98-107); Estimated Creatinine Clearance 56 ml/min; Glucose 134 mg/dl (70-99); Potassium 3.9 mmol/L (3.5-5.1); Sodium 138 mmol/L (135-145); Total Protein 4.9 g/dl (6.3-8.2); eGFR > 60.00
--- NOTE | 2025-04-05 11:15 | PTCARENOTE ---
Critical H/H 6.3/18.8 Dr Ibarra aware. Blood ordered but decision made after assessment of the patient and discussion w patient and family to redraw H/H for accuracy. Will continue to monitor. VSS.
--- NOTE | 2025-04-05 11:46 | W.PN.HOSP.TC ---
Today's Communication/Plan
-
cont telemetry
serial H&H
Ortho informed - questioning if need to repeat RLE imaging
Hold anticoagulation
Transfuse if repeated H&H in line, since patient had pink conjuctiva that would not be expected with such Hgb drop and rmains hemodynamically stable
Assessment / Plan
Assessment / Plan
84yo F with PMHX of oHTN, DM, HLD came after fall when she tripped over the curb while carrying groseries. No LOC reported. Found comminuted, mildly displaced and minimally impacted fracture of the proximal right femur
A/P:
#comminuted, mildly displaced and minimally impacted fracture of the proximal right femur
Ortho for mgmt
pain mgmt - poor reaction to opioids, avoid
PT/OT when ready
Patient reports no recent respiratory illness, not a smoker, does not have Hx of cardiac or pulmonary disease, EKG without significant ST changes or TWI (Isolatr in single lateral lead only), considered to be low risk for intermediate risk
procedure, holding Losartan ahead of procedure
#Acute blood loss anemia
most likely 2/2 Fx and postOP and hemodilution with IVF
patient asymptomatic
transfuse to keep Hgb >7
Holding AC for now
Ortho informed
serial H&H
#Acute delirium
transient
2/2 opioids
#New onset Afib with RVR preOP
Cardio consult
telemetry: converted to sinus
Metoprolol
Eventual Eliquis
#DM type 2 with unspecified complications
Accuchecks, Insulin SS, DM diet when ready
hold metformin while inpatient
#HLD
#EssentiL HTN
cont hoem meds
DVT ppx lovenox
Full code
I have spent at least 53min reviewing chart, test results, communication with consultants, family and providing direct patient care
Anticipated Discharge: > 48 hours
Subjective/Interval History
-
Date of Service: April 05, 2025
Objective Data
-
Labs:
Laboratory Results
04/05/25 04/05/25 04/05/25
09:33 11:22 14:00
WBC 7.3
Hgb 6.3 L* D Pending Pending
Hct 18.8 L* Pending Pending
Plt Count 132 D
Sodium 138
Potassium 3.9
Chloride 106
Carbon Dioxide 30
BUN 23 H
Creatinine 0.7
Glucose 134 H
Calcium 8.0 L
Total Bilirubin 0.7
AST 29
ALT 12
Alkaline Phosphatase 73
04/05/25
22:00
WBC
Hgb Pending
Hct Pending
Plt Count
Sodium
Potassium
Chloride
Carbon Dioxide
BUN
Creatinine
Glucose
Calcium
Total Bilirubin
AST
ALT
Alkaline Phosphatase
Vital Signs:
Vital Signs
Temp Pulse Resp BP Pulse Ox
97.0 F 97 24 133/61 95
04/05/25 08:00 04/05/25 10:49 04/05/25 08:00 04/05/25 08:48 04/05/25 08:00
I&O
04/04/25 04/05/25 04/06/25
06:59 06:59 06:59
Intake Total 1510 / 1510 870 / 870
Output Total 400 / 400
Balance 1110 / 1110 870 / 870
Review of Systems
-
History Source: Patient
All other systems: Reviewed and negative
Physical Exam
-
General: No Apparent Distress
HEENT: Normocephalic
Cardiac: Regular Rhythm
GI: Soft, Nontender and Nondistended
Musculoskeletal: No Clubbing, No Cyanosis and Other (R hip with minimal blood on the dressing, no significant pain or bruise seen, however tense )
Neuro: Awake, Alert, Oriented and AO x 3
Psych: Calm
[2025-04-05 11:49] LABS: Hematocrit 17.8 % (37.0-47.0); Hemoglobin 5.9 g/dL (12.0-16.0)
--- NOTE | 2025-04-05 12:14 | PTCARENOTE ---
Repeat Hgb 5.9, will transfuse as ordered. Pt's VSS.
[2025-04-05 12:27] LABS: Glucose - Point of Care 191 mg/dl (70-99)
[2025-04-05] MEDS: NOVOLOG FLEXPEN-LOW RESISTANCE 1 UNITS SC (12:28)
[2025-04-05 16:54] LABS: Glucose - Point of Care 140 mg/dl (70-99)
[2025-04-05] MEDS: LIPITOR 10 MG PO (17:22)
--- NOTE | 2025-04-05 18:37 | W.PN.UPDATE ---
Update Note
Progress Note Update
Patients hemoglobin dropped to 5.9. I stopped by to check on her right hip. Her dressing has slight strikethrough of blood, but is otherwise clean, dry and intact. She does have quite a bit of edema about the hip, but compartments are
soft/compressible and nontender. Will continue to monitor.
--- NOTE | 2025-04-05 18:52 | PTCARENOTE ---
Pt remained calm and cooperative throughout the day. AOX3, but forgetful. 2 units PRBCs transfused w/o incident. Repeat h/h sent at this time.
[2025-04-05 18:58] LABS: Hematocrit 27.9 % (37.0-47.0); Hemoglobin 9.4 g/dL (12.0-16.0)
[2025-04-05 21:32] LABS: Glucose - Point of Care 179 mg/dl (70-99)
[2025-04-06] VITALS (7 sets, daily range): BP systolic 130–159; BP diastolic 58–76; PULSE 87; O2SAT 91
--- NOTE | 2025-04-06 02:04 | PTCARENOTE ---
Pt confused, attempting to get oob. Attempted to re-orient Pt and she states 'come on let me just get out of bed.'. Supportive care provided, reminded Pt of her surgery and her current status. Pt incontinent of large amount of urine. Pt changed and
repositioned. bed alarm in place. Pt cooperative and agreeable. call jaquez within reach.
--- NOTE | 2025-04-06 03:10 | PTCARENOTE ---
Pt confused, crying at times. Pt removed tele monitor, refusing to put it back on. bed alarm in place. call jaquez within reach.
--- NOTE | 2025-04-06 06:00 | PTCARENOTE ---
Pt saturated with urine, changed and repositioned. Pt confused but redirectable. tele monitor reapplied. Pt on the phone with son.
[2025-04-06 07:04] LABS: Glucose - Point of Care 147 mg/dl (70-99)
[2025-04-06 07:17] LABS: Hematocrit 27.8 % (37.0-47.0); Hemoglobin 9.6 g/dL (12.0-16.0); Mean Corp Hgb Conc. 34.5 g/dL (33.0-37.0); Mean Corpuscular Volume 84.0 fL (81.0-99.0); Nucleated Red Blood Cells % 0.2 %; Platelet Count 121 10^3/uL (130-400); Red Cell Dist. Width 15.6 % (11.5-14.5)
[2025-04-06] MEDS: NOVOLOG FLEXPEN-LOW RESISTANCE SC (07:37)
--- NOTE | 2025-04-06 08:13 | W.PN.UPDATE ---
Update Note
Progress Note Update
Ms. Brantley is POD2 following her right hip cephalomedullary nail performed by Dr. Cornejo. She is resting comfortably in bed this morning. She reports her pain is well controlled at present. She is eager to get up out of bed.
Directed exam of the right lower extremity reveals surgical dressings with slight strikethrough of blood, otherwise dry and intact. No significant tenderness about the hip. Edema about the hip and thigh. Thigh soft and compressible. Calf soft and
nontender. Patient able to wiggle toes, plantar and dorsiflex ankle. Neurovascularly intact distally.
Hgb 9.6 this AM.
84 yo F POD2 right hip cephalomedullary nail under the direction of Dr. Cornejo
--Touch-down weight bearing to right lower extremity with assistive device. We appreciate the assistance of PT/OT.
--Eliquis for DVT ppx given new onset a-fib.
--Pain control prn. Avoid narcotics if possible given recent agitation. Ice and elevation prn for pain and edema control.
--Maintain surgical dressing x7-10 days post-op. Staple removal at 2 weeks post-op.
--Hgb 9.6 this morning after transfusion yesterday. Continue to monitor.
--Case management consult for dc planning.
--Patient is stable post-operatively from an orthopedic standpoint. Orthopedics will sign off for now. Please reach out with any additional questions or concerns.
[2025-04-06] MEDS: COLACE 100 MG PO ×2 (08:14→19:58)
[2025-04-06] MEDS: TOPROL XL 25 MG PO ×2 (08:15→19:58)
[2025-04-06] MEDS: TYLENOL 650 MG PO (08:15)
[2025-04-06] MEDS: COZAAR 25 MG PO ×2 (08:15→19:58)
[2025-04-06 08:30] LABS: ALT (SGPT) 14 U/L (0-35); AST (SGOT) 31 U/L (14-36); Albumin 2.9 g/dl (3.5-5.0); Alkaline Phosphatase 79 U/L (38-126); Blood Urea Nitrogen 17 mg/dl (7-17); Calcium 8.2 mg/dl (8.4-10.2); Carbon Dioxide 30 mmol/L (22-30); Chloride 105 mmol/L (98-107); Estimated Creatinine Clearance 65 ml/min; Glucose 156 mg/dl (70-99); Potassium 3.6 mmol/L (3.5-5.1); Sodium 136 mmol/L (135-145); Total Protein 5.2 g/dl (6.3-8.2); eGFR > 60.00
--- NOTE | 2025-04-06 10:26 | CM ---
Addendum entered by Alejo Reyes 04/06/25 11:39:
[facility] admission director confirmed they do have a bed available and pt is accepted for admission today.
Both pt and her son Cruzito are aware, expressed their agreement with discharge. IMM reviewed, placed on chart, pt has a copy.
to arrange ambulance -BLS. PMNC completed and left with .
[facility] nursing report: [phone]
Discharge instructions fax: [phone]
D/C plan: [facility].
Original Note:
CM following re: discharge planning.
Reviewed pt's chart, met with pt.
Pt is POD#3 right hip cephalomedullary nail, continue supportive care.
According to MD pt is medically stable to be discharged today.
PT and OT evaluations noted - SNF level of carte recommended. Pt is aware, expressed her agreement. A list of SNFs provided, pt preferred: [facility], [facility] or [facility]. A referral to above SNFs made.
D/C plan: preferred SNF.
CM will follow to assist pt with discharge to a preferred SNF.
[2025-04-06 11:12] LABS: Glucose - Point of Care 172 mg/dl (70-99)
--- NOTE | 2025-04-06 11:18 | W.PN.CARDCBS ---
Addendum entered and electronically signed by Carlos Wilburn MD 04/06/25 12:21:
84-year-old woman with mechanical fall and right femoral fracture status post cephalomedullary nail on 05/05/2025 with postop self terminating paroxysmal atrial fibrillation and blood loss anemia status post transfusion
PMH: Hypertension, hyperlipidemia, diabetes
Current medications: Losartan 25 mg twice daily, atorvastatin 10 mg a day, enoxaparin 40 mg daily, Colace, metoprolol ER 25 mg twice daily
150/71, pulse 84, respiratory rate 16, no acute distress, marked edema of right lower extremity, lungs relatively clear, possible S3, neck veins difficult to assess, 1+ lower extremity edema
Hemoglobin is 9.6, platelets are 121, BUN and creatinine are 17 and 0.6
ECG April 04: Atrial fibrillation with rapid ventricular response and inferolateral ST segment depression
Echo: Pending
Impression:
Recent right femoral fracture status post cephalomedullary nail
Paroxysmal atrial fibrillation
Nonsustained ventricular tachycardia
Blood loss anemia status posttransfusion
Possible heart failure, unknown EF
Hypertension, hyperlipidemia, type 2 diabetes
Plan:
Overall doing reasonably well from cardiac standpoint, with a few caveats.
She has not had further atrial fibrillation.
She had a run of nonsustained VT on telemetry. Will continue to monitor for now and continue metoprolol ER 25 mg twice daily.
Her volume status is possibly elevated. Will await echocardiogram and check proBNP. She may need furosemide.
Plan on restarting Eliquis in a.m. provided hemoglobin is stable.
The EKG documenting atrial fibrillation with RVR had dramatic ST segment depression. Her EKG today is markedly improved. Consider an outpatient sestamibi study.
From cardiac standpoint okay to continue with discharge planning. We will arrange for follow-up.
Original Note:
Today's Communication / Plan
-
-echo today
-considering timing for starting OAC for paroxsymal afib
Impression / Plan
-
84-year-old female with hypertension, hyperlipidemia, and diabetes who presented with a right femoral fracture following a mechanical fall. Cardiology is consulted for new paroxysmal atrial fibrillation.
Paroxysmal atrial fibrillation
-Occurred at 8:30 AM on 04/04/2025. She was symptomatic with RVR. Resolved during surgery.
-Increased Toprol XL to 25 mg p.o. twice daily. Continue losartan.
telemetry personally reviewed: NSR 80-90s, 13 beat NSVT
-[id number] 6 (female, age, HTN, DM, possible CAD)
-Hgb dropped to 5.9 04/05. Rec'd 2 units prbcs. Hgb today 04/06 9.6
-Start Eliquis 5 mg twice daily once safe from a surgical standpoint. Ortho has cleared her to start Eliquis
-Check echocardiogram today
-Outpatient sleep study and lifestyle modifications recommended
-EKG in afib with ST-T wave abnormalities. ST segments improved on EKG in NSR.
Hypertension
-on Toprol 25 mg bid-new this admission
-Continue losartan 25 mg bid
Hyperlipidemia/DM
-Continue statin
NSVT
--13 beat NSVT on telem overnight
-K 3.6 - replete- I ordered KCl 20 meq x1
-checking echo today
-consider outpt isch w/u with stress test
-adding on proBNP
-
Progress Note - Doctor Of Dental Surgery
Subjective
Date of Service: April 06, 2025
remains in NSR
anxious to get home after rehab
no SOB or CP
Objective
Labs:
04/06/25 06:35
04/06/25 06:35
Labs
Hgb 9.6 g/dL (12.0-16.0) L 04/06/25 06:35
Hct 27.8 % (37.0-47.0) L 04/06/25 06:35
Plt Count 121 10^3/uL (130-400) L 04/06/25 06:35
Sodium 136 mmol/L (135-145) 04/06/25 06:35
Potassium 3.6 mmol/L (3.5-5.1) 04/06/25 06:35
BUN 17 mg/dl (7-17) 04/06/25 06:35
Creatinine 0.6 mg/dL (0.6-1.0) 04/06/25 06:35
Glucose 156 mg/dl (70-99) H 04/06/25 06:35
Vital Signs and I&O:
Vital Signs
Temp Pulse Resp BP Pulse Ox
98.7 F 84 16 150/71 96
04/06/25 07:05 04/06/25 08:15 04/06/25 07:05 04/06/25 08:15 04/06/25 07:05
Vital Signs
Temp Pulse Resp BP Pulse Ox
98.7 F 84 16 150/71 96
04/06/25 07:05 04/06/25 08:15 04/06/25 07:05 04/06/25 08:15 04/06/25 07:05
Intake & Output
04/04/25 04/05/25 04/06/25 04/07/25
06:59 06:59 06:59 06:59
Intake Total 1510 / 1510 870 / 870 2200 / 2200 420 / 420
Output Total 400 / 400
Balance 1110 / 1110 870 / 870 2200 / 2200 420 / 420
Physical Exam
Physical Exam
GEN: No distress, awake, Ox3
HEENT: supple, anicteric, mmm
LUNGS: CTA, no wheezes/rales
CV: Reg, S1/S2,? S3
ABD: soft, BS+, NT/ND
EXT:trace RLE edema
NEURO: Gross non-focal
SKIN: surgical incision RLE
[2025-04-06] MEDS: DULCOLAX 10 MG RECTAL (11:54)
[2025-04-06] MEDS: KCL 20 MEQ PO (12:13)
--- NOTE | 2025-04-06 12:43 | W.PN.HOSP.TC ---
Today's Communication/Plan
-
Assessment / Plan
Assessment / Plan
New onset atrial fibrillation with RVR, now back in sinus rhythm
Started on beta-porfirio
Monitor on telemetry
2D echocardiogram pending
Eliquis started per cardiology and orthopedic recommendations at 5 mg twice a day
Will need continued outpatient cardiology follow-up
Right hip fracture s/p ORIF
Postop day 2
Ankle pumps
Incentive spirometer
DVT prophylaxis per orthopedics convert to Eliquis on discharge as orthopedics okay to start
Right lower extremity toe-touch weightbearing
PT recommended SNF
Acute on chronic anemia complicated by blood loss symptomatic anemia
Likely related to perioperative blood loss
S/p 2 units PRBC
Hemoglobin now stable
Transfuse hemoglobin greater than 7
Diabetes mellitus type 2
Accu-Cheks
Sliding scale
Carb controlled diet
Goal blood glucose 140-180
Resume metformin on discharge
Hyperlipidemia
New statin
Hypertension
Continue antihypertensives
If able to get 2d echo completed and oked by cardiology for DC then will send to [facility]
Anticipated Discharge: Today
Subjective/Interval History
-
Date of Service: April 06, 2025
Seen and examined. Sitting in bedside chair. No new complaints. No acute overnight events.
Had a small bowel movement yesterday. She is agreeable to a suppository this morning
Objective Data
-
Labs:
Laboratory Results
04/06/25
06:35
WBC 8.3
Hgb 9.6 L
Hct 27.8 L
Plt Count 121 L
Sodium 136
Potassium 3.6
Chloride 105
Carbon Dioxide 30
BUN 17
Creatinine 0.6
Glucose 156 H
Calcium 8.2 L
Total Bilirubin 1.5 H
AST 31
ALT 14
Alkaline Phosphatase 79
Vital Signs:
Vital Signs
Temp Pulse Resp BP Pulse Ox
98.2 F 82 16 138/64 97
04/06/25 11:58 04/06/25 11:58 04/06/25 11:58 04/06/25 11:58 04/06/25 11:58
I&O
04/05/25 04/06/25 04/07/25
06:59 06:59 06:59
Intake Total 870 / 870 2200 / 2200 420 / 420
Balance 870 / 870 2200 / 2200 420 / 420
Physical Exam
-
General: Well Developed, Well Nourished and No Apparent Distress
HEENT: Normocephalic and Atraumatic
Respiratory: Clear to Auscultation
Cardiac: Regular Rhythm and S1/S2
GI: Soft, Nontender and Nondistended
Musculoskeletal: No Cyanosis
Skin: Warm and Dry
Neuro: Awake and AO x 3
Psych: Calm
[2025-04-06] MEDS: NOVOLOG FLEXPEN-LOW RESISTANCE 1 UNITS SC ×2 (13:07→18:51)
[2025-04-06 17:13] LABS: Glucose - Point of Care 153 mg/dl (70-99)
--- NOTE | 2025-04-06 18:34 | W.PN.UPDATE ---
Update Note
Progress Note Update
proBNP is 3480, pulmonary artery systolic pressure is approximately 70 by echo, will give Lasix x 1, Eliquis to start tomorrow, will reassess volume status in a.m.
[2025-04-06] MEDS: LIPITOR 10 MG PO (18:49)
[2025-04-06] MEDS: KCL 40 MEQ PO (19:57)
[2025-04-06] MEDS: LASIX 40 MG IV (19:57)
[2025-04-06 21:26] LABS: Glucose - Point of Care 233 mg/dl (70-99)
[2025-04-07 03:20] VITALS: BP 151/67
[2025-04-07 06:33] VITALS: BMI 31.8
[2025-04-07 06:58] LABS: Glucose - Point of Care 161 mg/dl (70-99)
[2025-04-07 07:05] VITALS: BP 139/69
[2025-04-07] MEDS: ELIQUIS 5 MG PO (09:05)
[2025-04-07] MEDS: COLACE 100 MG PO (09:05)
[2025-04-07] MEDS: NOVOLOG FLEXPEN-LOW RESISTANCE 1 UNITS SC ×2 (09:05→13:21)
[2025-04-07] MEDS: TOPROL XL 25 MG PO (09:06)
[2025-04-07] MEDS: COZAAR 25 MG PO (09:06)
[2025-04-07] MEDS: SENOKOT-S 1 TABLET PO (09:07)
[2025-04-07 09:31] LABS: Hematocrit 27.8 % (37.0-47.0); Hemoglobin 9.4 g/dL (12.0-16.0); Mean Corp Hgb Conc. 33.8 g/dL (33.0-37.0); Mean Corpuscular Volume 85.5 fL (81.0-99.0); Platelet Count 138 10^3/uL (130-400); Red Cell Dist. Width 14.8 % (11.5-14.5)
[2025-04-07 09:38] LABS: Blood Urea Nitrogen 18 mg/dl (7-17); Calcium 8.1 mg/dl (8.4-10.2); Carbon Dioxide 32 mmol/L (22-30); Chloride 102 mmol/L (98-107); Estimated Creatinine Clearance 56 ml/min; Glucose 254 mg/dl (70-99); Potassium 4.1 mmol/L (3.5-5.1); Sodium 134 mmol/L (135-145); eGFR > 60.00
--- NOTE | 2025-04-07 09:47 | PN.CDI ---
CDI
- -
CDI:
Physician Documentation Request
Admit Date: 04/03/25 17:14
Dear Doctor David,
Please review the following and provide your response in the progress notes.
Clinical Indicators:
H+P, 04/03
#...reports that she was carrying bags of groceries into the house
#...when she missed the curb and fell landing on her right hip.
#intertrochanteric fracture of right femur 2/2 mechanical fall
PN, 04/06
#Right hip fracture s/p ORIF
#...Postop day 2
Please clarify the etiology of the right femur fracture(intertrochanteric):
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
Traumatic fracture only
Other(please specify)
Type Fracture
Age-related osteoporosis With current pathological fx
Drug induced (specify drug) without current pathological fx
Idiopathic
Osteoporosis of disuse
Post traumatic
Post oophorectomy osteoporosis
Use of terms such as suspected, likely, concern for, or probable (associated with a specific diagnosis that is being evaluated, monitored, or treated as if it exists) are acceptable and can be coded in the inpatient setting, when documented at the
time of discharge.
Thank you,
Lula Rome RN BSN CCDS
CDI Specialist
Please contact via tiger text
Please use your independent medical judgment in providing your response.
--- NOTE | 2025-04-07 09:58 | PN.CDI ---
CDI
- -
CDI:
Physician Documentation Request
Admit Date: 04/03/25 17:14
Dear Doctor David,
Please review the following and provide your response in the progress notes.
Clinical Indicators:
Clemente NELLI, 04/05
#...POD1 following her right hip cephalomedullary nail
#...was agitated this morning and allegedly removed her surgical dressings,
#...tore out her IV and removed her cardiac leads.
#...also aggressive with staff and was placed in restraints.
#...still quite agitated this morning.
#She is not redirectable--'Take these off of me and see what I'll do'.
04/05/25 07:24 - Patient Care Note
#...pt noted to have removed tele monitor and was attempting to remove gown.
#...Patient stated hospital staff are 'hurting animals' and
#...that 'you're all going to rot in hell'.
#...physically aggressive towards staff, scratching and pulling at staff members
#...clothes and extremities.
#...Patient was reality oriented during the entirety of care.
04/05/25 08:00 (created 04/05/25 11:45) - Patient Care Note
#...more calm and cooperative, mildly agitated. AOx3,
#...though confused over events overnight and yesterday.
#...Restraints removed. No aggressive behaviors observed.
#...Will continue to monitor closely. Bed alarm in place.
Based on the above and your clinical assessment, please clarify the most likely etiology of the confusion/altered mental status.
Multifactorial Acute Metabolic Encephalopathy - due to a specific condition such as postoperative , medications(anesthesia/pain meds), metabolic dysfunction, etc.
Acute Delirium - indicate known or suspected etiology such as postoperative, due to opioids or other drugs etc. Can also indicate unknown or mixed etiologies.
Other (please specify)
Use of terms such as suspected, likely, concern for, or probable (associated with a specific diagnosis that is being evaluated, monitored, or treated as if it exists) are acceptable and can be coded in the inpatient setting, when documented at the
time of discharge.
Thank you,
Lula Rome RN BSN CCDS
CDI Specialist
Please contact via tiger text
Please use your independent medical judgment in providing your response.
[2025-04-07 11:10] VITALS: BP 150/77
--- NOTE | 2025-04-07 13:07 | W.PN.HOSP.TC ---
Today's Communication/Plan
-
Assessment / Plan
Assessment / Plan
New onset atrial fibrillation with RVR, now back in sinus rhythm
Started on beta-porfirio
Monitor on telemetry
2D echocardiogram completed, EF 60-65%
Eliquis started per cardiology and orthopedic recommendations at 5 mg twice a day
Will need continued outpatient cardiology follow-up
Right hip fracture s/p ORIF
Postop day 2
Ankle pumps
Incentive spirometer
DVT prophylaxis per orthopedics convert to Eliquis on discharge as orthopedics okay to start
Right lower extremity toe-touch weightbearing
PT recommended SNF
Acute on chronic anemia complicated by blood loss symptomatic anemia
Likely related to perioperative blood loss
S/p 2 units PRBC
Hemoglobin now stable
Transfuse hemoglobin greater than 7
Diabetes mellitus type 2
Accu-Cheks
Sliding scale
Carb controlled diet
Goal blood glucose 140-180
Resume metformin on discharge
Hyperlipidemia
New statin
pHTN
?Need for R/LHC
Asymptomatic, not requiring o2
Likely able to follow up with outpatient cardiology/pulmonary
-Appreciate input about afterload reduction from cardiology to help improve forward flow
Hypertension
Continue antihypertensives
Appreciate cardiology input
Anticipated Discharge: Within 24 hours
Subjective/Interval History
-
Date of Service: April 07, 2025
seen and examined. no new complaints. no acute ovenrihgt events
feeling better
Objective Data
-
Labs:
Laboratory Results
04/07/25
08:58
WBC 7.7
Hgb 9.4 L
Hct 27.8 L
Plt Count 138
Sodium 134 L
Potassium 4.1
Chloride 102
Carbon Dioxide 32 H
BUN 18 H
Creatinine 0.7
Glucose 254 H
Calcium 8.1 L
Vital Signs:
Vital Signs
Temp Pulse Resp BP Pulse Ox
98.9 F 76 16 150/77 94
04/07/25 11:10 04/07/25 11:10 04/07/25 11:10 04/07/25 11:10 04/07/25 11:10
I&O
04/06/25 04/07/25 04/08/25
06:59 06:59 06:59
Intake Total 2200 / 2200 1077 / 1077 880 / 880
Output Total 700 / 700
Balance 2200 / 2200 377 / 377 880 / 880
Physical Exam
-
General: Well Developed and Well Nourished
Respiratory: Clear to Auscultation
Cardiac: Regular Rhythm
GI: Soft, Nontender and Nondistended
Musculoskeletal: No Clubbing and No Cyanosis
Neuro: Awake and AO x 3
Psych: Calm
[2025-04-07 13:16] LABS: Glucose - Point of Care 190 mg/dl (70-99)
--- NOTE | 2025-04-07 13:56 | W.PN.CARDCBS ---
Addendum entered and electronically signed by Carlos Wilburn MD 04/07/25 17:57:
84-year-old woman with mechanical fall and right femoral fracture status post cephalomedullary nail on 05/05/2025 with postop self terminating paroxysmal atrial fibrillation and blood loss anemia status post transfusion
PMH: Hypertension, hyperlipidemia, diabetes
Meds: Reviewed. Patient received IV Lasix yesterday for proBNP 3450, with pulmonary hypertension by echo up to 70 mmHg systolic
143/66, pulse 79, respiratory rate 16, afebrile, head neck exam unremarkable, patient looks and feels better lungs are clear neck veins okay, edema improved regular rate and rhythm without obvious murmurs or gallops
Echo 04/06/2025: EF 60-65% borderline mitral valve prolapse, MAC, mild MR normal left atrium, aortic sclerosis, pulmonary artery systolic pressure is 71
Patient now off telemetry
Hemoglobin 9.4, BUN and creatinine are 18 and 0.7, proBNP was 3450
Plan:
Overall doing well, despite pulmonary hypertension and elevated proBNP, acute HFpEF.
Would discharge on low-dose furosemide.
Pulmonary hypertension is impressive, could relate to volume/acute HFpEF will need to repeat echo after diuresis. Clinically she is not behaving like a pulmonary embolus or fat embolus, will not pursue further at this time, and patient on Eliquis.
No further atrial fibrillation.
Given EKG changes with atrial fib and episode of nonsustained VT will arrange for outpatient sestamibi study and cardiac follow-up. Okay for discharge from our standpoint.
Original Note:
Today's Communication / Plan
-
po lasix 20mg daily for DC
continue toprol 25mg BID, cozaar 25mg BID
eliquis 5mg BID
BMP/proBNP in 1 week
OP ischemic evaluation
OP cardiac follow up arranged
Impression / Plan
-
Primary Travel Physical Therapist: Dr. Burnham
Assessment:
Fall with R hip pain
R hip fracture s/p ORIF
Paroxysmal atrial fibrillation
Post op anemia requiring transfusion
HTN
HLD
DM
NSVT
ECHO 04/06/25: EF 60 to 65%, borderline bileaflet prolapse, MAC, mild MR, normal right heart with severe pulmonary hypertension, PASP 71 mmHg systolic
Plan:
- Continue postoperative care for right hip fracture status post ORIF this admission
- Had PAF earlier in admission. She was taken off of telemetry last evening. In sinus rhythm on examination
- Her hemoglobin dropped to 5.9 on 04/05/2025 and underwent 2 unit packed red blood cell transfusion. Started on Eliquis this morning. Hemoglobin 9.4
- Also was noted to have run of NSVT earlier in admission. Would keep K greater than 4 and mag greater than 2. Check magnesium today
- Toprol dose was increased from 25 mg a day to 25 mg twice daily which we will continue upon discharge
- Echo with preserved EF as above
- proBNP was elevated 04/06 at 3410 and was given dose of IV lasix. would initiate po lasix 20mg daily for DC
- While in atrial fibrillation with RVR, was noted to have ST abnormalities with concern for underlying coronary disease, which resolved once SR restored. Will need outpatient ischemic evaluation once recovered from hip surgery
- continue statin
- BMP/proBNP in 1 week
- OP cardiac follow up arranged
- plan for DC to SNF today
- d/w hospitalist
Progress Note - Travel Physical Therapist
Subjective
Date of Service: April 07, 2025
feeling well. reports good response to IV lasix yesterday
Objective
Labs:
04/07/25 08:58
04/07/25 08:58
Labs
Hgb 9.4 g/dL (12.0-16.0) L 04/07/25 08:58
Hct 27.8 % (37.0-47.0) L 04/07/25 08:58
Plt Count 138 10^3/uL (130-400) 04/07/25 08:58
Sodium 134 mmol/L (135-145) L 04/07/25 08:58
Potassium 4.1 mmol/L (3.5-5.1) 04/07/25 08:58
BUN 18 mg/dl (7-17) H 04/07/25 08:58
Creatinine 0.7 mg/dL (0.6-1.0) 04/07/25 08:58
Glucose 254 mg/dl (70-99) H 04/07/25 08:58
Vital Signs and I&O:
Vital Signs
Temp Pulse Resp BP Pulse Ox
98.9 F 76 16 150/77 94
04/07/25 11:10 04/07/25 11:10 04/07/25 11:10 04/07/25 11:10 04/07/25 11:10
Vital Signs
Temp Pulse Resp BP Pulse Ox
98.9 F 76 16 150/77 94
04/07/25 11:10 04/07/25 11:10 04/07/25 11:10 04/07/25 11:10 04/07/25 11:10
Intake & Output
04/05/25 04/06/25 04/07/25 04/08/25
07:59 07:59 07:59 07:59
Intake Total 870 / 870 2200 / 2200 1077 / 1077 880 / 880
Output Total 700 / 700
Balance 870 / 870 2200 / 2200 377 / 377 880 / 880
Physical Exam
Physical Exam
GEN: No distress, awake, alert, oriented x3
HEENT: supple, anicteric, mmm, eomi
LUNGS: CTA B/L, no wheezes/rales
CV: Reg, S1/S2, no murmur
ABD: soft, BS+, NT/ND
EXT: No cyanosis, clubbing, edema
NEURO: Gross non-focal
SKIN: Warm, pink, dry. No rash
--- NOTE | 2025-04-07 14:37 | CM ---
Addendum entered by Alejo Reyes 04/07/25 16:03:
Discharge order noted. Both pt and her son Cruzito are aware, expressed their agreement with discharge.
CM spoke to [facility] director employee communications and she confirmed that they do have a bed available and pt is accepted for admission today.
to arrange ambulance [facility] .
[facility] nursing report: [phone]
Discharge instructions fax: [phone]
D/C plan: [facility].
Original Note:
CM following re: discharge planning.
Reviewed pt's chart, met with pt.
Per MD pt is not medically stable to be discharged yet, continue supportive care, cardiology following.
[facility] admission director confirmed they do have a bed available and pt is accepted when medically stable.
[facility] to arrange ambulance -[facility]. [facility] completed and left with .
[facility] nursing report: [phone]
Discharge instructions fax: [phone]
D/C plan: [facility].
CM will follow to assist pt with discharge to [facility].
[2025-04-07 15:08] VITALS: BP 138/70; PULSE 78; O2SAT 96
[2025-04-07 15:10] VITALS: BP 143/66
--- NOTE | 2025-04-07 15:41 | W.DCSUMMARY ---
Addendum entered and electronically signed by Hector Hernandez MD 04/09/25 16:18:
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
Multifactorial Acute Metabolic Encephalopathy
Original Note:
Discharge Summary
Discharge Data
Date of Admission: 04/03/25
Date of Discharge: 04/07/25
-
Pending Results: No
Hospital Course
84-year-old female with past medical history significant for hypertension, hyperlipidemia and DM - II
Presented after sustaining a mechanical fall with injury to the right hip. Hip x-rays demonstrated comminuted and mildly displaced intertrochanteric fracture which extends into the proximal femur. Was evaluated by orthopedics recommended operative
intervention with gamma nail. Postoperative course complicated by anemia with a hemoglobin of 5.9 which was likely due to believed to be related to surgery. Therefore provided with 2 units of hemoglobin with improvement of hemoglobin to 9. 4 and
9.6. Was evaluated by physical therapy recommended discharge to SNF.
Additionally, should be noted while on the way to the OR developed chest pressure EKG check demonstrated atrial fibrillation with RVR. Converted back into sinus rhythm on on. Atrial fibrillation with RVR is a new diagnosis however currently back
in sinus rhythm. Recommended by cardiology to start Eliquis 5 mg twice a day once safe from surgical standpoint and to start low-dose beta-porfirio with metoprolol succinate 25 mg daily and uptitrate as needed. Cardiology recommended to start Lasix
20 mg daily. Will need continued outpatient follow-up with cardiology.
2d echo
SUMMARY
1. Normal left ventricular size, wall thickness and contractility, EF 60-65%.
2. Thickened mitral leaflets with borderline bileaflet prolapse, mitral annular calcification, mild mitral regurgitation and normal left atrium.
3. Mild calcification of the noncoronary cusp of the aortic valve without stenosis or regurgitation.
4. Normal right heart with severe pulmonary hypertension, 71 mmHg systolic.
5. There are no prior studies available for comparison.
Hip Xray - post op
IMPRESSION:
ORIF of an acute comminuted intertrochanteric fracture of the right proximal femur with a long stem gamma nail.
Hip Xray - pre-op
IMPRESSION:
Comminuted and mildly displaced intertrochanteric fracture which extends into the proximal femur.
Discharge Plan
-
Patient Disposition: Fdc/SNF
Discharge Diagnosis/Procedures: right hip fracture s/p ORIF
afib rvr
Condition: Good
Diet: Low Cholesterol, Low Sodium and Diabetic, Carb Controlled
Additional Activity: right LE toetouch wb
Blood Work: BMP and proBNP in 1 week
Specialty Instructions: Weigh Daily- Call MD for wt gain/loss 3 lbs overnight/5 lbs in 1 week
Activity Restrictions/Additional Instructions:
Presented after sustaining a mechanical fall with injury to the right hip. Hip x-rays demonstrated comminuted and mildly displaced intertrochanteric fracture which extends into the proximal femur. Was evaluated by orthopedics recommended operative
intervention with gamma nail. Postoperative course complicated by anemia with a hemoglobin of 5.9 which was likely due to believed to be related to surgery. Therefore provided with 2 units of hemoglobin with improvement of hemoglobin to 9. 4 and
9.6. Was evaluated by physical therapy recommended discharge to SNF.
Additionally, should be noted while on the way to the OR developed chest pressure EKG check demonstrated atrial fibrillation with RVR. Converted back into sinus rhythm on on. Atrial fibrillation with RVR is a new diagnosis however currently back
in sinus rhythm. Recommended by cardiology to start Eliquis 5 mg twice a day once safe from surgical standpoint and to start low-dose beta-porfirio with metoprolol succinate 25 mg daily and uptitrate as needed. Will need continued outpatient
follow-up with cardiology.
Instructions: *[facility] Heart Failure Instructions
Referrals:
Zana Lou DO [Family Provider, Family Practice]
Ruth Blanchard CRNP [Specified Professional Personl, Cardiology] - 05/07/25 2:20 pm
Referral Note: You have a hospital follow-up appointment with Dr. Burnham's nurse practitioner at the [place] office.
Prescriptions:
New
metoprolol succinate 25 mg Tablet Extended Release 24 Hr
25 mg PO BID Qty: 60 0RF
Eliquis 5 mg tablet
5 mg PO BID Qty: 60 0RF
furosemide [Lasix] 20 mg tablet
20 mg PO DAILY Qty: 30 0RF
Continued
metformin 500 mg Tablet
500 mg PO BID@0800,1700
simvastatin 10 mg Tablet
10 mg PO QPM
therapeutic multivitamin Tablet
1 tab PO DAILY
losartan 25 mg Tablet
25 mg PO BID
Hair,Skin and Nails Tablet
1 tab PO DAILY
biotin 5,000 mcg Tablet, Sublingual
5,000 mcg SUBLINGUAL DAILY
docusate sodium [Colace] 100 mg Capsule
200 mg PO PRN (Reason: constipation )
Discharge Orders:
Discharge Patient (As Directed); Ordered 04/07/25
Ordered By: Hector Hernandez
Discharge Date and Time
Print Language: MARTINIQUAIS
[2025-04-07] MEDS: LASIX 20 MG PO (15:50)
[2025-04-07 15:59] LABS: Magnesium 1.6 mg/dl (1.6-2.3)
[2025-04-07 16:07] VITALS: BP 138/70; BP 150/66; PULSE 79; O2SAT 96
[2025-04-07 17:07] LABS: Glucose - Point of Care 148 mg/dl (70-99)
[2025-04-07] MEDS: NOVOLOG FLEXPEN-LOW RESISTANCE SC (17:24)
[2025-04-07] MEDS: LIPITOR 10 MG PO (17:33)
== END 2025-04-07 18:32 | DRG 480 ==
LOC: 2 SOUTH 17:14
PROVIDERS: Internal Medicine; ADMITTING PHYSICIAN Hospitalist; ATTENDING PHYSICIAN Hospitalist; CONSULT PHYSICIAN Orthopaedic Surgery Hand Surgery; CONSULT PHYSICIAN Student in an Organized Health Care Education/Training Program; EMERGENCY PHYSICIAN Emergency Medicine; FAMILY PHYSICIAN Family Medicine
PROC: 0QS606Z Reposition Right Upper Femur with Intramedullary Internal Fixation Device, Open Approach (ICD-10-PCS; 2025-04-04)
DX: M80.051A Age-related osteoporosis with current pathological fracture, right femur, initial encounter for fracture (principal); G93.41 Metabolic encephalopathy; D62 Acute posthemorrhagic anemia; I47.20 Ventricular tachycardia, unspecified; S72.21XA Displaced subtrochanteric fracture of right femur, initial encounter for closed fracture; I10 Essential (primary) hypertension; E78.00 Pure hypercholesterolemia, unspecified; E11.9 Type 2 diabetes mellitus without complications; I27.20 Pulmonary hypertension, unspecified; W01.0XXA Fall on same level from slipping, tripping and stumbling without subsequent striking against object, initial encounter; Z79.84 Long term (current) use of oral hypoglycemic drugs; Z79.899 Other long term (current) drug therapy; Z96.653 Presence of artificial knee joint, bilateral; I25.10 Atherosclerotic heart disease of native coronary artery without angina pectoris; K59.00 Constipation, unspecified; I48.0 Paroxysmal atrial fibrillation; I08.1 Rheumatic disorders of both mitral and tricuspid valves
CPT/HCPCS: 73502; 76000; 77063; 77067; 80048; 80053; 82962; 83735; 83880; 84443; 85014; 85018; 85025; 85027; 86850; 86900; 86901; 86920; 93005; 93306; 96374; 96375; 96376; 97110; 97163; 97167; 97530; 97535; 99285; P9016

== ENCOUNTER → 2025-04-10 09:51 | Outpatient (REF) | payer OTHER, MEDICARE, BC, SELFPAY ==
[2025-04-10 11:20] LABS: Hematocrit 30.0 % (37.0-47.0); Hemoglobin 9.8 g/dL (12.0-16.0); Mean Corp Hgb Conc. 32.7 g/dL (33.0-37.0); Mean Corpuscular Volume 89.0 fL (81.0-99.0); Platelet Count 248 10^3/uL (130-400); Red Cell Dist. Width 15.5 % (11.5-14.5)
[2025-04-10 11:38] LABS: Blood Urea Nitrogen 24 mg/dl (7-17); Calcium 8.8 mg/dl (8.4-10.2); Carbon Dioxide 31 mmol/L (22-30); Chloride 102 mmol/L (98-107); Glucose 146 mg/dl (70-99); Potassium 4.0 mmol/L (3.5-5.1); Sodium 136 mmol/L (135-145); eGFR > 60.00
== END ==
LOC: OLABP 09:51
PROVIDERS: ATTENDING PHYSICIAN Family Medicine
DX: I48.0 Paroxysmal atrial fibrillation (principal); S72.141D Displaced intertrochanteric fracture of right femur, subsequent encounter for closed fracture with routine healing; I47.29 Other ventricular tachycardia; D62 Acute posthemorrhagic anemia; I48.91 Unspecified atrial fibrillation; R41.0 Disorientation, unspecified; I34.1 Nonrheumatic mitral (valve) prolapse; E11.9 Type 2 diabetes mellitus without complications; E78.5 Hyperlipidemia, unspecified; I10 Essential (primary) hypertension; T50.905D Adverse effect of unspecified drugs, medicaments and biological substances, subsequent encounter
CPT/HCPCS: 36415; 80048; 83880; 85027

== ENCOUNTER → 2025-04-16 10:38 | Outpatient (REF) | payer OTHER, MEDICARE, BC, SELFPAY ==
[2025-04-16 11:54] LABS: Hematocrit 29.4 % (37.0-47.0); Hemoglobin 9.6 g/dL (12.0-16.0); Mean Corp Hgb Conc. 32.7 g/dL (33.0-37.0); Mean Corpuscular Volume 89.6 fL (81.0-99.0); Nucleated Red Blood Cells % 0 %; Platelet Count 300 10^3/uL (130-400); Red Cell Dist. Width 16.1 % (11.5-14.5)
[2025-04-16 11:59] LABS: Blood Urea Nitrogen 15 mg/dl (7-17); Calcium 9.2 mg/dl (8.4-10.2); Carbon Dioxide 32 mmol/L (22-30); Chloride 101 mmol/L (98-107); Glucose 114 mg/dl (70-99); Potassium 4.1 mmol/L (3.5-5.1); Sodium 136 mmol/L (135-145); eGFR > 60.00
== END ==
LOC: OLABP 10:38
PROVIDERS: ATTENDING PHYSICIAN Family Medicine
DX: D62 Acute posthemorrhagic anemia (principal); R41.0 Disorientation, unspecified; S72.141D Displaced intertrochanteric fracture of right femur, subsequent encounter for closed fracture with routine healing; I47.29 Other ventricular tachycardia; I48.0 Paroxysmal atrial fibrillation; I34.1 Nonrheumatic mitral (valve) prolapse; E11.9 Type 2 diabetes mellitus without complications
CPT/HCPCS: 36415; 80048; 85025

== ENCOUNTER → 2025-05-02 09:27 | Outpatient (REF) | payer OTHER, MEDICARE, BC, SELFPAY ==
[2025-05-02 11:43] LABS: Hematocrit 31.1 % (37.0-47.0); Hemoglobin 10.3 g/dL (12.0-16.0); Mean Corp Hgb Conc. 33.1 g/dL (33.0-37.0); Mean Corpuscular Volume 90.7 fL (81.0-99.0); Platelet Count 200 10^3/uL (130-400); Red Cell Dist. Width 15.5 % (11.5-14.5)
== END ==
LOC: OLABP 09:27
PROVIDERS: ATTENDING PHYSICIAN Family Medicine
DX: T50.905A Adverse effect of unspecified drugs, medicaments and biological substances, initial encounter (principal); S72.141D Displaced intertrochanteric fracture of right femur, subsequent encounter for closed fracture with routine healing; I47.29 Other ventricular tachycardia; I48.91 Unspecified atrial fibrillation; R41.0 Disorientation, unspecified; I48.0 Paroxysmal atrial fibrillation; E11.9 Type 2 diabetes mellitus without complications; E78.5 Hyperlipidemia, unspecified; I10 Essential (primary) hypertension
CPT/HCPCS: 36415; 85027

== ENCOUNTER → 2025-05-25 15:33 | Outpatient (REF) | payer MEDICARE, BC, SELFPAY ==
[2025-05-25 16:22] LABS: INR 0.96; PT 13.1 Sec (11.4-14.6)
== END ==
LOC: REG 15:33
PROVIDERS: ATTENDING PHYSICIAN Internal Medicine Cardiovascular Disease
DX: I48.0 Paroxysmal atrial fibrillation (principal); Z79.01 Long term (current) use of anticoagulants
CPT/HCPCS: 36415; 85610

== ENCOUNTER 2025-07-03 02:24 | Observation (INO) | payer MEDICARE, BC, SELFPAY ==
[2025-07-02 22:00] VITALS: BP 195/101
[2025-07-02 22:01] VITALS: BP 195/101
[2025-07-02 22:04] LABS: Glucose - Point of Care 166 mg/dl (70-99)
[2025-07-02 22:13] VITALS: BMI 31.8
[2025-07-02 22:36] VITALS: BP 185/75
[2025-07-02 22:39] LABS: Hematocrit 38.6 % (37.0-47.0); Hemoglobin 12.8 g/dL (12.0-16.0); Mean Corp Hgb Conc. 33.2 g/dL (33.0-37.0); Mean Corpuscular Volume 89.6 fL (81.0-99.0); Nucleated Red Blood Cells % 0 %; Platelet Count 197 10^3/uL (130-400); Red Cell Dist. Width 13.7 % (11.5-14.5)
[2025-07-02 22:48] LABS: INR 3.22; PT 33.2 Sec (11.4-14.6)
[2025-07-02 22:49] LABS: APTT 40.5 Sec (23.4-35.0)
[2025-07-02 23:02] LABS: ALT (SGPT) 16 U/L (0-35); AST (SGOT) 27 U/L (14-36); Albumin 4.1 g/dl (3.5-5.0); Alkaline Phosphatase 161 U/L (38-126); Blood Urea Nitrogen 14 mg/dl (7-17); Calcium 9.5 mg/dl (8.4-10.2); Carbon Dioxide 29 mmol/L (22-30); Chloride 103 mmol/L (98-107); Estimated Creatinine Clearance 53 ml/min; Glucose 147 mg/dl (70-99); Potassium 4.0 mmol/L (3.5-5.1); Sodium 139 mmol/L (135-145); Total Protein 7.0 g/dl (6.3-8.2); eGFR > 60.00
[2025-07-02 23:05] VITALS: BP 176/82
[2025-07-03] VITALS (8 sets, daily range): BP systolic 131–167; BP diastolic 56–102; PULSE 70; BMI 29.5
[2025-07-03 00:05] LABS: Urine Character Clear (Clear)
--- NOTE | 2025-07-03 01:34 | ED.GENMED ---
History of Present Illness
<Jani Herrera Jr., PA-C - Last Filed: 07/03/25 01:37>
General
Chief Complaint: Fall
Source: patient
Exam Limitations: none
Time Seen by Provider: 07/02/25 23:10
Nursing documentation reviewed up to this point in time: agreed with
History of Present Illness
History of Present Illness:
85-year-old female past medical history of hypertension hyperlipidemia, PAF currently on Coumadin, diabetes presenting to the emergency department today after mechanical fall over a threshold in her home. She does live by herself in a private
residence. She claims that she hit her head denies any ongoing pain or additional symptoms she was unable to stand up for multiple hours she was yelling until her neighbor came over to help and called EMS
Review of Systems
<RUDY Osullivan Jr. Last Filed: 07/03/25 01:37>
Review of Systems
Allergies reviewed?: Yes
All Other Systems: ROS reviewed and negative except as documented in HPI and ROS
Phy Exam
<RUDY Osullivan Jr. Last Filed: 07/03/25 01:37>
Physical Exam
Physical Exam:
GENERAL: Alert , in no apparent distress
EYE: pupils equal and reactive
NECK: Supple, no significant adenopathy.
ENT: Abrasion to the left forehead o/p clr, mmm.
CARDIAC: Regular rate and rhythm .
LUNGS: Clear breath sounds bilaterally, no acute respiratory distress, no wheezes/rales/rhonchi
ABDOMEN: Soft, without focal tenderness, no r/g, no cvat
NEUROLOGICAL: Alert and oriented, no focal neuro deficits 5 out of 5 upper and lower extremity strength normal sensation with palpating bilaterally
SKIN: Warm and dry, skin intact.
MUSCULOSKELETAL: No edema, well perfused.
PSYCH: Normal and appropriate interaction.
Course
<Jani Herrera Jr., PA-C - Last Filed: 07/03/25 01:37>
Orders/Labs/Results
Orders:
Orders
07/02/25 21:59
CT Head W/o Iv Contrast Urgent
Comment:
Reason For Exam: fall, head injury, on warfarin
Cervical Spine wo Contrast CT [CT Cervical Spine W/o Iv Contr] Urgent
Comment:
Reason For Exam: fall, head strike, on warfarin
07/02/25 22:31
CMP [Comprehensive Metabolic Panel] Urgent
Complete Blood Count/With Diff Urgent
Creatine Phosphokinase Urgent
Comment: ADD ON
INR [Prothrombin Time] Urgent
PTT Urgent
07/02/25 23:37
Add On- LAB Urgent
Comments:: CPK
Tests Added?: CPK
07/02/25 23:38
Straight cath- Treatment ONCE
07/02/25 23:54
Urinalysis Reflex To Culture Urgent
Date Specimen was Collected: 07/02/25
Time Specimen was Collected: 23:39
Urine Microscopic Reflex Cult Urgent
07/03/25 00:15
EKG [Electrocardiogram (*1)] Urgent
Reason for Study: Vertigo / Dizzy
EKG- Treatment ONCE
Abnormal Lab Results
07/02/25 07/02/25 07/02/25
22:02 22:31 23:54
Absolute Neuts (auto) 8.4 H 10^3/uL
(1.4-6.5)
Absolute Lymphs (auto) 1.1 L 10^3/uL
(1.2-3.4)
Absolute Monos (auto) 0.7 H 10^3/uL
(0.1-0.6)
Neutrophils % 82.1 H %
(42.2-75.2)
Lymphocytes % 10.5 L %
(20.5-51.1)
PT 33.2 H Sec
(11.4-14.6)
APTT 40.5 H Sec
(23.4-35.0)
Glucose 147 H mg/dl
(70-99)
Alkaline Phosphatase 161 H U/L
(38-126)
Creatine Kinase 279 H U/L
(30-135)
Ur Occult Blood Reflex 3+ A
(Negative)
Urine Albumin (Reflex) 1+ A
(Neg - Trace)
POC Glucose 166 H mg/dl
(70-99)
07/02/25 22:31
07/02/25 22:31
Vital Signs
Initial and Last Documented VS:
Initial Vital Signs
BP
195/101
07/02/25 22:00
Last Documented Vital Signs
Temp Pulse Resp BP Pulse Ox
97.7 F 74 24 140/65 97
07/02/25 22:01 07/03/25 01:30 07/03/25 01:30 07/03/25 01:00 07/03/25 01:36
Jonnylt;Danny Boo, DO - Last Filed: 07/03/25 01:44>
Orders/Labs/Results
Orders:
Orders
07/02/25 21:59
CT Head W/o Iv Contrast Urgent
Comment:
Reason For Exam: fall, head injury, on warfarin
Cervical Spine wo Contrast CT [CT Cervical Spine W/o Iv Contr] Urgent
Comment:
Reason For Exam: fall, head strike, on warfarin
07/02/25 22:31
CMP [Comprehensive Metabolic Panel] Urgent
Complete Blood Count/With Diff Urgent
Creatine Phosphokinase Urgent
Comment: ADD ON
INR [Prothrombin Time] Urgent
PTT Urgent
07/02/25 23:37
Add On- LAB Urgent
Comments:: CPK
Tests Added?: CPK
07/02/25 23:38
Straight cath- Treatment ONCE
07/02/25 23:54
Urinalysis Reflex To Culture Urgent
Date Specimen was Collected: 07/02/25
Time Specimen was Collected: 23:39
Urine Microscopic Reflex Cult Urgent
07/03/25 00:15
EKG [Electrocardiogram (*1)] Urgent
Reason for Study: Vertigo / Dizzy
EKG- Treatment ONCE
Abnormal Lab Results
07/02/25 07/02/25 07/02/25
22:02 22:31 23:54
Absolute Neuts (auto) 8.4 H 10^3/uL
(1.4-6.5)
Absolute Lymphs (auto) 1.1 L 10^3/uL
(1.2-3.4)
Absolute Monos (auto) 0.7 H 10^3/uL
(0.1-0.6)
Neutrophils % 82.1 H %
(42.2-75.2)
Lymphocytes % 10.5 L %
(20.5-51.1)
PT 33.2 H Sec
(11.4-14.6)
APTT 40.5 H Sec
(23.4-35.0)
Glucose 147 H mg/dl
(70-99)
Alkaline Phosphatase 161 H U/L
(38-126)
Creatine Kinase 279 H U/L
(30-135)
Ur Occult Blood Reflex 3+ A
(Negative)
Urine Albumin (Reflex) 1+ A
(Neg - Trace)
POC Glucose 166 H mg/dl
(70-99)
07/02/25 22:31
07/02/25 22:31
Vital Signs
Initial and Last Documented VS:
Initial Vital Signs
BP
195/101
07/02/25 22:00
Last Documented Vital Signs
Temp Pulse Resp BP Pulse Ox
97.7 F 74 24 140/65 97
07/02/25 22:01 07/03/25 01:30 07/03/25 01:30 07/03/25 01:00 07/03/25 01:36
<RUDY Osullivan Jr. Last Filed: 07/03/25 01:37>
MDM/Problems Addressed
MDM/Problems Addressed:
85-year-old female presenting to the emergency department today with concerns of a fall which was described as mechanical unable to stand up for multiple hours but CK is normal. Initial blood pressure elevated but improving without specific
treatment. Labs without emergent findings. CT of the head and neck without emergent findings. Plan to admit considering patient's ambulatory dysfunction for further assessment with PT and case management.
<RUDY Osullivan Jr. Last Filed: 07/03/25 01:37>
*Pulse Oximetry
SaO2: 97
Oxygen Mode of Delivery: Room air
Patient hypoxic: no (97)
*Critical Care Note
Total Time (30-74mins, 75-104mins- exclusive of procedures): Not Applicable
ED Attending Note
<RUDY Osullivan Jr. Last Filed: 07/03/25 01:37>
-
Portions of this chart may have been created with voice recognition software.� Occasional wrong word or��sound alike� substitutions may have occurred due to the inherent limitations of voice recognition software.
<Danny Boo DO - Last Filed: 07/03/25 01:44>
ED Attending Note
Patient seen and examined by attending physician: Yes
I performed the substantive portion of visit, reviewed & personally made and approve the management plan that is documented in note by myself or ROSCOE.: Yes
ED Attending Note:
Note:
CHIEF COMPLAINT(S)
Admission for overnight observation.
HISTORY OF PRESENT ILLNESS
The patient is an 85-year-old female who is being admitted to the hospital for overnight observation. She is currently stable and was observed eating a turkey sandwich with no complaints at the time of the encounter. No specific symptoms or medical
issues were discussed during the interaction.
PHYSICAL EXAM
General: Alert, no acute distress.
Skin: Warm, dry.
Head: Normocephalic, atraumatic.
Neck: Supple, trachea midline.
Eye, Ears, Nose, Mouth, and Throat: Oral mucosa moist.
Cardiovascular: Normal peripheral perfusion, No edema.
Respiratory: Respirations are non-labored.
Gastrointestinal: Abdomen nondistended.
Back: Normal range of motion, Normal alignment.
Musculoskeletal: Normal ROM, normal strength.
Neurological: Alert and oriented to person, place, time, and situation, No focal neurological deficit observed.
Psychiatric: Cooperative, appropriate mood & affect.
PLAN
The patient will remain in the hospital for one night for observation.
DIFFERENTIAL DIAGNOSIS
The Differential Diagnosis includes, in no particular order and is not limited to:
1. Dehydration
2. Infection
3. Cardiac events
4. Neurological issues
5. Gastrointestinal disturbance
6. Respiratory complications
7. Electrolyte imbalance
8. Medication side effects
9. Metabolic disorder
10. Acute pain condition
Disposition:
SUMMARY OF ENCOUNTER
The patient is an 85-year-old female who presented to the emergency department and is being admitted for overnight observation. The primary reason for admission is ambulation dysfunction and multiple falls. The patient will require a physical
therapy assessment to determine further needs and to aid in her mobility management.
DISPOSITION
Admit for overnight observation.
ASSESSMENT
The patient has been experiencing ambulation dysfunction and has had multiple falls, necessitating an overnight observation to monitor her condition and ensure safety, as well as a physical therapy assessment.
PLAN
The patient will remain in the hospital for overnight observation. A physical therapy assessment will be conducted to address her ambulation dysfunction and falls.
MEDICAL DECISION MAKING
-Complexity of Data Reviewed:
Dehydration, Infection, Cardiac events, Neurological issues, Gastrointestinal disturbance, Respiratory complications, Electrolyte imbalance, Medication side effects, Metabolic disorder, Acute pain condition.
DIAGNOSIS
- Repeated falls (ICD-10: R29.6)
- Gait dysfunction (ICD-10: R26.89)
Discharge Plan
Departure
Patient Disposition: Admit
Date of Disposition: 07/03/25
Time of Disposition: 01:36
Admit to: Med/Surg
Admit to doctor: Vincent
Presentation/result/management discussed w/ accepting MD/DO: Hospitalist
Patient with high blood pressure during this ER visit?: No
Condition: Good
Covid-19: Not Applicable
Discharge Problem:
Fall, Ambulatory dysfunction
Prescriptions:
No Action
metformin 500 mg Tablet
500 mg PO BID@0800,1700
simvastatin 10 mg Tablet
10 mg PO QPM
losartan 25 mg Tablet
25 mg PO BID
metoprolol succinate 25 mg Tablet Extended Release 24 Hr
25 mg PO BID Qty: 60 0RF
warfarin 4 mg Tablet
4 mg PO DAILY
Referrals:
Zana Lou DO [Family Provider, Family Practice]
Interventions
Interventions:
*Risk Screen - Suicide Last Done: 07/02/25 22:33
*General Assessment Last Done: 07/02/25 22:33
*Neglect/Abuse Screening Last Done: 07/02/25 22:33
*ED- Fall Risk Assessment Last Done: 07/02/25 22:33
*ED COVID-19 Vaccine History Last Done: 07/02/25 22:33
*ED Influenza Vaccine History Last Done: 07/02/25 22:33
ED-Musculoskeletal Assessment Last Done: 07/02/25 23:22
ED- Neurological Assessment Last Done: 07/02/25 23:22
ED-Skin Assessment Last Done: 07/02/25 23:22
Discharge Date and Time
Print Language: MALAY
--- NOTE | 2025-07-03 01:39 | HPS.HSE ---
Family Physician
-
Family Physician: Zana Lou
Chief Complaint
-
Fall
History of Present Illness
This is a 85-year-old female with past medical history significant for qxm-uchdwmy-arrpjjypb diabetes, hypertension, hyperlipidemia, recent ORIF and recent diagnosis of atrial fibrillation on anticoagulation with Coumadin who presents to the
emergency department after being found down following a fall at home.
The patient reports that she been having some degree of incontinence lately. After a visiting brother left she was running to the bathroom. Asked that she go to the bathroom she noted that she had been having some incontinence and dripping. She
went to run to change her clothes and then tripped and fell. She denied any loss of consciousness. She denied feeling dizzy or lightheaded. She denied having any palpitations. She denied any chest pain nausea vomiting or diaphoresis. She denied
any prior episodes of falls.
Patient reported after the fall she had trouble getting up. She reported that she was on the floor for about 30 minutes. The neighbor found her and EMS was called bringing her to the emergency department. She currently denies any acute symptoms.
She is alert and oriented x 3. She reports decreased appetite since her last surgical procedure at end of march.
In the emergency department she was afebrile, blood pressure was 140/65 with a pulse of 70 and she was satting 97% on room air. ECG shows a normal sinus rhythm at rate of 69. CT of the head was negative. C-spine shows no acute fractures or
dislocation. UA was unremarkable. She does have elevated INR 3.2 to the rest of CBC was unremarkable stop electrolytes BUN and creatinine were all in normal range. CPK was 279.
Medical History
Past Medical History
Past Medical History: Reports Arrhythmia (Paroxysmal atrial fibrillation) and Other
Additional Past Medical History:
hypertension
hyperlipidemia
DM - II
Past Surgical History: Reports Other
Additional Past Surgical History:
Arthroscopy with chondroplasty, medial meniscectomy + partial synovectomy - left - 04/02/18
Left TKR - 05/22/2019
Rt arm Surgery w/ Glenn
Appendectomy
X2
cataract bilateral
Right TKA 12/06/2023 DB
RT L3-4 ILESI NO SED 01/21/24
RT L3-4 ILESI NO SED 08.27.24
Social History
Tobacco: Non-smoker
Alcohol: Occasional (rare)
Drug: None
Living: Alone
Family History
Family History: Not pertinent
Allergies / Home Medications
Allergies reflects when Allergies were last updated in [employer].
Home Medications with original date entered in [employer]
Allergy/Medication List:
Allergies
Allergy/AdvReac Type Severity Reaction Status Date / Time
hydromorphone (From Dilaudid) Allergy 'it makes Verified 07/02/25 22:05
me crazy'
per patient
Home Medications
losartan 25 mg tablet 25 mg PO BID Blood Pressure 08/20/23
metformin 500 mg tablet 500 mg PO BID@0800,1700 Diabetes 08/20/23
simvastatin 10 mg tablet 10 mg PO QPM High Cholesterol 08/20/23
metoprolol succinate 25 mg tablet,extended release 24 hr 25 mg PO BID #60 tabs 04/06/25
warfarin 4 mg tablet 4 mg PO DAILY 07/03/25
Review of Systems
-
Constitutional: Reports No Symptoms
EENT: Reports No Symptoms
Respiratory: Reports No Symptoms
Cardiac: Reports No Symptoms
Abdomen/GI: Reports No Symptoms
: Reports No Symptoms
Musculoskeletal: Reports No Symptoms
Skin: Reports No Symptoms
Neurological: Reports No Symptoms
Endocrine: Reports No Symptoms
Hematologic/Lymphatic: Reports No Symptoms
Psych: Reports No Symptoms
Physical Exam
Vital Signs
Vital Signs
Temp Pulse Resp BP Pulse Ox
97.7 F 70 22 140/65 97
07/02/25 22:01 07/03/25 01:15 07/03/25 01:15 07/03/25 01:00 07/03/25 01:36
Physical Exam
General: Well Developed, Well Nourished, No Apparent Distress, Conversant, Pain and Obese
HEENT: NormoCephalic, Moist mucous membranes and Atraumatic
Respiratory: Clear and Non Labored Respirations
Cardiac: S1/S2 and Regular Rhythm; No Murmur, Rub or Gallop
Breast: Deferred by me
GI: Soft, Non Tender, Non Distended and Normal Bowel Sounds
Rectal: Deferred by Provider
Genito-urinary: Deferred by me
Musculoskeletal: No Clubbing and No Cyanosis
Skin: Warm and IV/Catheter Site
Neuro: Awake, AO x 3 and Nonfocal/grossly intact
Psych: Calm and Intact Judgment/Insight
Laboratory Results
-
07/02/25 22:31
07/02/25 22:31
Laboratory Results
PT 33.2 Sec (11.4-14.6) H 07/02/25 22:31
INR 3.22 07/02/25 22:31
APTT 40.5 Sec (23.4-35.0) H 07/02/25 22:31
Total Bilirubin 1.0 mg/dl (0.2-1.3) 07/02/25 22:31
AST 27 U/L (14-36) 07/02/25 22:31
ALT 16 U/L (0-35) 07/02/25 22:31
Alkaline Phosphatase 161 U/L (38-126) H 07/02/25 22:31
Data Reviewed
-
CT Scan: Report Reviewed by me
Medical Tests (Nuc Med, Echo, EKG etc): Image Personally Visualized and interpreted
Lab Data: Labs Reviewed by me
Old Records: Reviewed
Impression/Plan
-
IMPRESSION:
Patient with a mechanical fall in the setting of some urinary incontinence. Difficulty getting up by her self. She is on Coumadin for paroxysmal atrial fibrillation. Brought to the emergency department by EMS following a fall for evaluation.
Evaluation in the ED shows no acute traumatic process. She has no signs of an acute infection. ECG was unremarkable. Patient is well-appearing and in no acute distress at this time. She feels ready to return home but has not been ambulated,
there is concern for risk of fall at home.
PLAN:
Ambulatory dysfunction -mechanical fall in the setting of incontinence. No fractures or dislocation. No acute intracranial process.
-Admit to MedSurg observation
-Orthostatic vital sign
-Pain control as needed
-PT consultation
- case management (patient looking to move to an apartment from a current home)
- Brother Devon is next of keen if questions ([phone]), patient very clear I did not need to ask him any questions.
Atrial fibrillation -patient with recent diagnosis of A-fib in March prior to procedure and in the setting of pain. She is on Coumadin
-INR supratherapeutic, hold Coumadin and recheck INR in a.m.
-Continue metoprolol 25 mg p.o. twice daily
Diabetes
-Continue metformin 500 mg p.o. twice daily
-Sliding scale insulin
DVT prophylaxis�on Coumadin
CODE STATUS�Full code
--- NOTE | 2025-07-03 01:44 | EDRN ---
call the patients brother Devon on his cell phone #[phone] with any questions
[2025-07-03 01:51] LABS: Urine Squamous Cell 0-2 /LPF (Few)
[2025-07-03 01:52] LABS: Urine White Cell 0-2 /HPF (0-5)
[2025-07-03 04:46] LABS: Glucose - Point of Care 175 mg/dl (70-99)
--- NOTE | 2025-07-03 05:10 | PTCARENOTE ---
ED report sheet stated that pt was 'AAOx3, forgetful at times'. Pt arrived to unit non-verbal and resistant to movement when transferred from stretcher to bed. Pt moaning with painful stimuli but refusing to follow orders to open her eyes or raise
her eyebrows. BP 152/102, HR 84, RR 18, 95% on room air with a 98.7 axillary temp. This RN confirmed with ED RN Sabrina that pt was verbal and conversing with providers in the ED before arrival to [facility]. JIG BUILDER HELPER Fede notified, came to floor to
assess pt. Pt is now AAOx2 to person and time, able to answer her name and birthday but shaking her head no when asked to open her eyes. Pt able to raise her arms and raise her eyebrows when asked by JIG BUILDER HELPER. Blood sugar checked at 0438 was 175. No
further orders. Will continue neurological checks q4h per order.
--- NOTE | 2025-07-03 06:59 | W.PN.UPDATE ---
Update Note
Progress Note Update
This JOURNALIST was called to see the patient.
RN states, patient is not waking up, unless sternal rub and not responding to questions. confirmed with the Admitting DrTamanna that she was Ox3, responding to questions and eating sandwich at the time of admission.
Once on the floor RN stated she did respond to a make nurse and responded to questions.
Patient seen, she kept her eyes close ignoring me. Then with the assistance of the male RN, though she kept her eyes closed, she found to be Ox3, followed commands. neurochecks WNL. Denied any pain and discomfort. VS BS stable.
likely early dementia. may need evaluation with outpatient PCP.
[2025-07-03 07:16] LABS: Hematocrit 36.2 % (37.0-47.0); Hemoglobin 12.1 g/dL (12.0-16.0); Mean Corp Hgb Conc. 33.4 g/dL (33.0-37.0); Mean Corpuscular Volume 88.1 fL (81.0-99.0); Platelet Count 188 10^3/uL (130-400); Red Cell Dist. Width 13.6 % (11.5-14.5)
[2025-07-03 07:25] LABS: INR 2.90; PT 30.7 Sec (11.4-14.6)
[2025-07-03] MEDS: GLUCOPHAGE 500 MG PO (07:50)
[2025-07-03] MEDS: COZAAR 25 MG PO (07:50)
[2025-07-03 07:54] LABS: Blood Urea Nitrogen 13 mg/dl (7-17); Calcium 9.1 mg/dl (8.4-10.2); Carbon Dioxide 30 mmol/L (22-30); Chloride 102 mmol/L (98-107); Estimated Creatinine Clearance 48 ml/min; Glucose 119 mg/dl (70-99); Potassium 3.6 mmol/L (3.5-5.1); Sodium 137 mmol/L (135-145); eGFR > 60.00
[2025-07-03] MEDS: NOVOLOG FLEXPEN-LOW RESISTANCE SC (07:58)
[2025-07-03] MEDS: TOPROL XL 25 MG PO (07:59)
[2025-07-03 08:02] LABS: Glucose - Point of Care 122 mg/dl (70-99)
--- NOTE | 2025-07-03 11:31 | CM ---
Addendum entered by Stephan Oliveira 07/03/25 13:36:
Patient will d/c home today
PT rec home health, patient will receive follow up visit from her current home health provider
Spoke w/ patient's son, Cruzito, made aware of d/c. Cruzito asking if hospitalist can call his brother, Eugenio, TT hospitalist w/ request
Cruzito unable to confirm which home health provider patient is current with. Cruzito stated he will find someone to transport patient home as he is not local and his brother is out of state
Plan: Home, HC follow up
Original Note:
Patient seen bedside, initial assessment completed. is a 85-year-old female with past medical history significant for unn-pjosopo-gczwvqtsc diabetes, hypertension, hyperlipidemia, recent ORIF and recent diagnosis of atrial fibrillation on
anticoagulation with Coumadin who presents to the emergency department after being found down following a fall at home.
Patient resides alone in a 2S , 4 steps to enter. Patient is independent w/ cane, RW. Has chair lift to get to second floor, grab bar in bathroom and bed rail. Independent w/ ADLs and personal care. [facility] in March. Patient stated she is
current w/ home PT, OT and VN but unsure of the provider.
Address, points of contact and insurance verified
PCP: Zana Lou
Pharmacy: [facility]
Patient admitted under obs services. LUO form verbally reviewed, copy provided, copy on chart
PT evaluation ordered, will await recommendations
Plan: Await PT to cont w/ d/c planning
[2025-07-03 11:46] LABS: Glucose - Point of Care 246 mg/dl (70-99)
[2025-07-03] MEDS: NOVOLOG FLEXPEN-LOW RESISTANCE 2 UNITS SC (11:49)
--- NOTE | 2025-07-03 16:26 | W.DCSUMMARY ---
Discharge Summary
Discharge Data
Date of Admission: 07/03/25
Date of Discharge: 07/03/25
Total time spent discharging patient (in min): 40
-
Pending Results: No
Hospital Course
Attending physician on day of discharge:
Manda Cao MD
Discharge diagnosis:
Mechanical fall
Secondary diagnoses:
DM2, HTN, HLD, AF
Consultations:
None
Procedures:
None
Hospital course:
85F presents with mechanical fall, she slipped on the wet floor, after an episode of urinary incontinence. She did not have LOC or any prodromal symptoms. She reports hitting her head, CTH and CT cervical spine negative for any acute abnormality.
She did not have any concerning lab abnormalities, UA was negative for LE/nitrite/WBC, EKG was NSR. CK was only very mildly elevated at 279, UA with 3-6 RBCs/3+ blood/1+ albumin. Her INR was mildly supratherapeutic on admit, but was at goal on
repeat testing. Her glucose was also mildly elevated, she was continued on her home metformin. She was evaluated by PT/OT and met criteria for discharge home with home health care. Notably patient has a lot of equipment at home to accommodate her
needs. This was discussed with her son Eugenio by phone, he expressed concern that his mother was having some waxing and waning cognitive issues, and he was concerned for early signs of dementia. CTH did show moderate periventricular small vessel
ischemic disease. She can follow-up with PCP and outpatient neurology for dementia screening and further workup and treatment.
Diagnostic Findings:
CTH: IMPRESSION:
No acute intracranial abnormality noted.
Mild atrophy.
Moderate periventricular small vessel ischemic disease
CT C spine: IMPRESSION:
No evidence of acute fracture the cervical spine.
Multilevel degenerative disc disease.
Straightening of the normal cervical spinal lordosis. This can be seen with muscular spasm.
Moderate lower cervical spine degenerative disease.
Physical exam on discharge:
Gen: NAD
HEENT: PERRLA, EOMI, MMM, neck supple
Cards: RRR, no M/G/R
Resp: Lungs CTAB, no W/R/R
GI: soft, NT/ND/NABS
MSK: No edema
Skin: warm and dry, no rash, ulcer or lesions
Heme: No LAD
Psych: Calm
Neuro: AAOx3
Discharge disposition:
Home with [facility]
Discharge Plan
-
Patient Disposition: Home with Home Care
Discharge Diagnosis/Procedures: Mechanical fall
Diet: Regular
Activity: As tolerated
Other Services: PT and OT
Referrals:
Zana Lou DO [Family Provider, [facility]]
Prescriptions:
Continued
metformin 500 mg Tablet
500 mg PO BID@0800,1700
simvastatin 10 mg Tablet
10 mg PO QPM
losartan 25 mg Tablet
25 mg PO BID
metoprolol succinate 25 mg Tablet Extended Release 24 Hr
25 mg PO BID Qty: 60 0RF
warfarin 4 mg Tablet
4 mg PO DAILY
Discharge Orders:
Discharge Patient (As Directed); Ordered 07/03/25
Ordered By: Manda Cao
Discharge Date and Time
Print Language: URDU
== END 2025-07-03 18:10 | disposition home health service (06) ==
LOC: 4 WEST ACU 02:24
PROVIDERS: Physician Assistant; Student in an Organized Health Care Education/Training Program; ADMITTING PHYSICIAN Internal Medicine; ATTENDING PHYSICIAN Internal Medicine; EMERGENCY PHYSICIAN Student in an Organized Health Care Education/Training Program; FAMILY PHYSICIAN Family Medicine
DX: R26.2 Difficulty in walking, not elsewhere classified (principal); S09.90XA Unspecified injury of head, initial encounter; S00.81XA Abrasion of other part of head, initial encounter; I10 Essential (primary) hypertension; E11.9 Type 2 diabetes mellitus without complications; E78.5 Hyperlipidemia, unspecified; I48.0 Paroxysmal atrial fibrillation; M50.30 Other cervical disc degeneration, unspecified cervical region; R32 Unspecified urinary incontinence; W01.198A Fall on same level from slipping, tripping and stumbling with subsequent striking against other object, initial encounter; Z79.01 Long term (current) use of anticoagulants; Z79.899 Other long term (current) drug therapy
CPT/HCPCS: 51701; 70450; 72125; 80048; 80053; 81003; 81015; 82550; 82962; 85025; 85027; 85610; 85730; 87070; 93005; 97162; 99285; G0378

== ENCOUNTER 2025-07-25 12:35 | Observation (INO) | payer MEDICARE, BC, SELFPAY ==
[2025-07-25] VITALS (18 sets, daily range): BP systolic 85–153; BP diastolic 40–63; PULSE 2–69; BMI 27.8
--- NOTE | 2025-07-25 07:37 | ED.GENMED ---
History of Present Illness
General
Chief Complaint: Fall
Source: patient, records and ambulance crew
Time Seen by Provider: 07/25/25 07:29
History of Present Illness
History of Present Illness:
85-year-old female with past medical history of hypertension, hyperlipidemia, esu-kibqwkk-rtydpjfod diabetes, on Coumadin (unknown reasoning) presents to the emergency department for evaluation with EMS after she had reportedly fell at some point
last night, unable to get up and this morning a neighbor was reportedly trying to call her but the patient was unable to get to the phone, found on the ground by family. Patient states that she normally uses a walker but was not using the walker at
time of her fall. She believes she was 'straightening things up at home' but does not recall what time this fall occurred. She has no specific pain or other concerns at this time. Patient lives at home with her cat. Family reportedly lives
locally.
Past History
Past History
ED Past Medical History: Arrthythmia, HTN, Hypercholesterolemia and NIDDM
ED Past Surgical History: Appendectomy, , Gynecological and Orthopedic
Social History
Tobacco: Non-smoker
Alcohol: None
Drug: None
Personal:
Living: alone
Review of Systems
Review of Systems
All Other Systems: ROS reviewed and negative except as documented in HPI and ROS
Phy Exam
Physical Exam
Physical Exam:
GENERAL: Alert , in no apparent distress
HEAD: Normocephalic atraumatic
EYE: Clear conjunctiva
NECK: Supple
ENT: o/p clr, mmm.
CARDIAC: Regular rate and rhythm .
LUNGS: Clear breath sounds bilaterally, no acute respiratory distress, no wheezes/rales/rhonchi
ABDOMEN: Soft, without focal tenderness, no r/g, no cvat
NEUROLOGICAL: Alert and oriented, no focal neuro deficits, moves all extremities
SKIN: Warm and dry, skin intact.
MUSCULOSKELETAL: No edema, well perfused.
PSYCH: Normal and appropriate interaction.
Scores
Heart Failure Risk
Heart Failure Risk Score: Not Applicable
Heart Score for Chest Pain Patients
STEMI patient?: Not applicable
Withdrawal Assessment of Alcohol
Withdrawal Assessment Completed?: Not applicable
Course
Orders/Labs/Results
Orders:
Orders
07/25/25 07:37
CT Head W/o Iv Contrast Urgent
Comment:
Reason For Exam: fall, on coumadin
07/25/25 07:43
CPK [Creatine Phosphokinase] Urgent
Complete Blood Count/With Diff Urgent
Comprehensive Metabolic Panel Urgent
PTT Urgent
Prothrombin Time Urgent
TSH Reflex To Free T4 Urgent
Comment: ADD ON
Urinalysis Reflex To Culture Urgent
Date Specimen was Collected: 07/25/25
Time Specimen was Collected: 07:40
Urine Microscopic Reflex Cult Urgent
Urine Culture Urgent
MARJAN Source: U
Specimen Description:
Obtained by: Random
Date Specimen was Collected: 07/25/25
Time Specimen was Collected: 07:40
07/25/25 07:59
CT Cervical Spine W/o Iv Contr Urgent
Comment:
Reason For Exam: fall, on coumadin
07/25/25 09:24
Case Management Consult ONCE
Case Management Consult: Discharge Planning
Physical Therapy Consult [Pt Eval And Treat] Urgent
Activity Level: Ambulate
07/25/25 11:36
EKG [Electrocardiogram (*1)] Urgent
Reason for Study: Atrial Fibrillation
07/25/25 11:40
Add On- LAB Urgent
Tests Added?: TSH with reflex FT4
07/25/25 11:42
ABG [Arterial Blood Gas] Stat
%Oxygen/Room Air: RA
07/25/25 12:02
CR Chest Portable - 1 View Urgent
Comment:
Reason For Exam: concern for CHF
Reason Study Needs to be Portable: Unable to Transport
07/25/25 12:04
Admit/Transfer Patient As Directed
Co-Sign Provider:
Level of Care: Observation services
Assign to:: Telemetry
Physician / Group: Tamra
Diagnosis: Fall
Reason for Telemetry: Arrhythmia
Date to Stop Telemetry: 07/28/25
Time to Stop Telemetry: 11:00
NT-proBNP Urgent
Troponin I Urgent
PRN Pain Medication Management As Directed
May give lesser potent ordered pain med per pt: Yes
preference::
Protocol:: Medication orders for pain may be administered in a
manner that supports deferring to patient preference
when the pt is:
- Requesting an ordered lesser potent pain medication.
Least to most potent pain medications are defined
as: acetaminophen < NSAID < tramadol < opioids
(morphine, oxycodone, hydromorphone).
- Requesting a lesser dose of the same medication IF
ORDERED.
- Requesting a less intrusive route of administration
if both routes are prescribed by the provider (PO <
IV).
07/25/25 12:07
Code Status As Directed
Resuscitation Status: Full Code
07/28/25 11:00
DC Protocol for Telemetry ONCE
Abnormal Lab Results
07/25/25 07/25/25
07:43 11:42
RBC 3.99 L 10^6/uL
(4.20-5.40)
Hgb 11.8 L g/dL
(12.0-16.0)
Hct 35.7 L %
(37.0-47.0)
Absolute Neuts (auto) 7.2 H 10^3/uL
(1.4-6.5)
Absolute Lymphs (auto) 0.7 L 10^3/uL
(1.2-3.4)
Neutrophils % 83.9 H %
(42.2-75.2)
Lymphocytes % 7.6 L %
(20.5-51.1)
PT 25.2 H Sec
(11.4-14.6)
APTT 46.1 H Sec
(23.4-35.0)
pH 7.48 H
(7.35-7.45)
pCO2 46 H mmHg
(32-35)
pO2 67 L mmHg
(83-108)
HCO3 34.3 H mmol/L
(21-28)
Sodium 134 L mmol/L
(135-145)
Chloride 95 L mmol/L
(98-107)
Carbon Dioxide 34 H mmol/L
(22-30)
BUN 29 H mg/dl
(7-17)
Glucose 150 H mg/dl
(70-99)
Alkaline Phosphatase 127 H U/L
(38-126)
Leukocyte Esterase Rfl 1+ A
(Negative)
Urine Bacteria (Reflex) Few A
(Negative)
Urine Albumin (Reflex) 2+ A
(Neg - Trace)
07/25/25 07:43
07/25/25 07:43
Vital Signs
Initial and Last Documented VS:
Initial Vital Signs
Pulse Ox
96
07/25/25 07:31
Last Documented Vital Signs
Temp Pulse Resp BP Pulse Ox
97.5 F 68 23 129/57 95
07/25/25 07:33 07/25/25 12:00 07/25/25 12:00 07/25/25 12:00 07/25/25 11:45
MDM/Problems Addressed
Differential Diagnosis Includes:
Ambulatory dysfunction
Mechanical fall
Rhabdomyolysis
Acute kidney injury
Intracranial bleeding
MDM/Problems Addressed:
85-year-old female presenting to the ER with EMS after reported fall at some point last night, patient unable to recollect the events of the fall but does note she was unable to get up off the ground. Found by family this morning. Patient without
any specific concerns. No obvious signs of trauma on exam. She is on Coumadin, record review shows patient with a history of atrial fibrillation. Will obtain CT of the head, labs ordered. Disposition pending.
Chronic conditions affecting care: Arrhythmia
*Radiology
Radiology exam reviewed: radiology read reviewed
*Pulse Oximetry
SaO2: 97
Oxygen Mode of Delivery: Room air
Patient hypoxic: no
*Critical Care Note
Total Time (30-74mins, 75-104mins- exclusive of procedures): Not Applicable
Patient Management
Discussion with other providers: Hospitalist
Escalation/DeEscalation of care consider admission/obs:
Patient's workup largely unremarkable and reflective of her chronic findings on CT imaging. Son who is currently at the bedside and agrees patient should not be discharged home as she is not safe and has had multiple falls. Recent admission here
for similar. Family is reportedly discussing more long-term options but they have not settled on where the patient will be living. Plan to admit until patient can be disposition to SNF/rehab.
ED Attending Note
-
Portions of this chart may have been created with voice recognition software.� Occasional wrong word or��sound alike� substitutions may have occurred due to the inherent limitations of voice recognition software.
Discharge Plan
Departure
Patient Disposition: Admit
Date of Disposition: 07/25/25
Time of Disposition: 10:54
Presentation/result/management discussed w/ accepting MD/DO: Hospitalist
Discharge Problem:
Multiple falls, Generalized weakness
Prescriptions:
No Action
metformin 500 mg Tablet
500 mg PO BID@0800,1700
simvastatin 10 mg Tablet
10 mg PO QPM
losartan 25 mg Tablet
25 mg PO BID
metoprolol succinate 25 mg Tablet Extended Release 24 Hr
25 mg PO BID Qty: 60 0RF
warfarin 3 mg tablet
3 mg PO DAILY
Rx Instructions:
take with 2mg to equal 5mg qd
pantoprazole 20 mg tablet,delayed release (DR/EC)
20 mg PO DAILY
furosemide 20 mg tablet
20 mg PO DAILY
warfarin 1 mg tablet
2 mg PO DAILY
Rx Instructions:
take with 3mg to equal 5mg qd
nitrofurantoin monohyd/m-cryst 100 mg capsule
100 mg PO BID
Rx Instructions:
started on 07/18/25 for 7 days
Referrals:
Zana Lou DO [Family Provider, Family Practice]
Interventions
Interventions:
*Risk Screen - Suicide Last Done: 07/25/25 07:33
*General Assessment Last Done: 07/25/25 07:33
*Neglect/Abuse Screening Last Done: 07/25/25 07:33
*ED COVID-19 Vaccine History Last Done: 07/25/25 07:33
*ED Influenza Vaccine History Last Done: 07/25/25 07:33
[facility] Fall Risk Assessment Tool Last Done: 07/25/25 07:33
ED-Musculoskeletal Assessment Last Done: 07/25/25 07:33
ED- Neurological Assessment Last Done: 07/25/25 07:33
ED-Skin Assessment Last Done: 07/25/25 07:33
Discharge Date and Time
Print Language: KYRGYZ
[2025-07-25 08:10] LABS: Hematocrit 35.7 % (37.0-47.0); Hemoglobin 11.8 g/dL (12.0-16.0); Mean Corp Hgb Conc. 33.1 g/dL (33.0-37.0); Mean Corpuscular Volume 89.5 fL (81.0-99.0); Nucleated Red Blood Cells % 0 %; Platelet Count 166 10^3/uL (130-400); Red Cell Dist. Width 13.4 % (11.5-14.5)
[2025-07-25 08:18] LABS: INR 2.27; PT 25.2 Sec (11.4-14.6)
[2025-07-25 08:19] LABS: APTT 46.1 Sec (23.4-35.0)
[2025-07-25 08:28] LABS: Urine Character Clear (Clear)
[2025-07-25 08:55] LABS: Urine Red Blood Cell 0-2 /HPF (0-2)
[2025-07-25 09:01] LABS: ALT (SGPT) 12 U/L (0-35); AST (SGOT) 20 U/L (14-36); Albumin 3.6 g/dl (3.5-5.0); Alkaline Phosphatase 127 U/L (38-126); Blood Urea Nitrogen 29 mg/dl (7-17); Calcium 8.7 mg/dl (8.4-10.2); Carbon Dioxide 34 mmol/L (22-30); Chloride 95 mmol/L (98-107); Glucose 150 mg/dl (70-99); Potassium 3.5 mmol/L (3.5-5.1); Sodium 134 mmol/L (135-145); Total Protein 6.5 g/dl (6.3-8.2); eGFR > 60.00
--- NOTE | 2025-07-25 10:58 | CM ---
Received consult, reviewed chart and met with son bedside in ED. Pt in ED after being found down after a fall at home. Lives alone in [address], [address].
Has been independent in ADLs, personal care and ambulation at baseline. Ambulates with cane or RW. Has stair glide to second level.
Also has grab bars in bathroom and bed rail.
Per son pt is having increasing confusion and cognitive issues, calls him in the middle of the night.
Was admitted in June after a fall, had a hip fracture in March, went to [facility].
Son Cruzito lives in [place], his brother Mario is A, not local.
They are looking into LTC but mother is resistant to moving.
Awaiting PT eval for recommendations, discussed Medicare 3 night rule with son for SNF.
Pt is currently receiving SN/Pt/OT fro [facility].
Discussed with Dr Gibbons, he will admit pt.
PCP: Zana Lou
Pharmacy: [facility]
CM will continue to follow for all discharge planning needs.
--- NOTE | 2025-07-25 11:59 | PHANOTE ---
med rec tech: Pt was not responsive, so I compiled med rec from pharmacy and most recent doctor's visit (07/20/25)
--- NOTE | 2025-07-25 12:10 | HPS.HSE ---
Addendum entered and electronically signed by Miguelito Barboza MD 07/25/25 13:54:
#Chronic elevation of alk.phos
most likely bone origin
follow LFT
Original Note:
Family Physician
-
Family Physician: Zana Lou
Chief Complaint
-
fall
History of Present Illness
85yo F with PMHX of Afib on Coumadin (due to insurance issues), HTN, DM, HLD, progressive cognitive decline that accelerated 6-8 weeks ago after she returned from rehab, living alone was brought by family after she was found on the floor, unable to
raise herself up. As per family patient was in her usual state of health seen 24h before admisison. At home patient was able to say that she was trying to make up her bed and fell, so probablyspent whole night on the floor.
Patient recently treated for UTI and completed Abx day prior
Patient has fluctuating cognition with frequent visual hallucinations at home and family recently started to look for placement. She had one fall2 weeks before admisison when she slipped.
Bedside patient did not provide any history, but awake, did not participate in PT actively and strongly resisting her movements, however as per RN - patient went to the bathroom with walker upon arrival to ED without complains for the pain.
Medical History
Past Medical History
Past Medical History: Reports Other (See above)
Past Surgical History: Reports Orthopedic
Social History
Tobacco: Non-smoker
Alcohol: None
Drug: None
Family History
Family History: Not pertinent
Allergies / Home Medications
Allergies reflects when Allergies were last updated in [employer].
Home Medications with original date entered in [employer]
Allergy/Medication List:
Allergies
Allergy/AdvReac Type Severity Reaction Status Date / Time
hydromorphone (From Dilaudid) Allergy 'it makes Verified 07/02/25 22:05
me crazy'
per patient
Home Medications
losartan 25 mg tablet 25 mg PO BID Blood Pressure 08/20/23
metformin 500 mg tablet 500 mg PO BID@0800,1700 Diabetes 08/20/23
simvastatin 10 mg tablet 10 mg PO QPM High Cholesterol 08/20/23
metoprolol succinate 25 mg tablet,extended release 24 hr 25 mg PO BID #60 tabs 04/06/25
furosemide 20 mg tablet 20 mg PO DAILY 07/25/25
nitrofurantoin monohydrate/macrocrystals 100 mg capsule 100 mg PO BID UTI 07/25/25
pantoprazole 20 mg tablet,delayed release 20 mg PO DAILY 07/25/25
warfarin 1 mg tablet 2 mg PO DAILY 07/25/25
warfarin 3 mg tablet 3 mg PO DAILY 07/25/25
Review of Systems
-
Unable to obtain full review of systems at this time due to: Dementia
History Source: Family
Physical Exam
Vital Signs
Vital Signs
Temp Pulse Resp BP Pulse Ox
97.5 F 62 17 141/63 94
07/25/25 07:33 07/25/25 11:30 07/25/25 11:30 07/25/25 11:10 07/25/25 11:30
Physical Exam
General: No Apparent Distress and Comfortable; No Pain
HEENT: NormoCephalic, Anicteric and Moist mucous membranes
Respiratory: Clear; No Wheezes or Crackles
Cardiac: S1/S2 and Regular Rhythm; No Murmur
GI: Soft, Non Tender and Non Distended
Genito-urinary: No costovertebral tender
Musculoskeletal: No Clubbing, No Cyanosis, Edema, Left Lower Extremity and Edema, Right Lower Extremity
Neuro: Sedated
Psych: Calm and Apparent Dementia
Laboratory Results
-
07/25/25 07:43
07/25/25 07:43
Laboratory Results
PT 25.2 Sec (11.4-14.6) H 07/25/25 07:43
INR 2.27 07/25/25 07:43
APTT 46.1 Sec (23.4-35.0) H 07/25/25 07:43
Total Bilirubin 1.2 mg/dl (0.2-1.3) 07/25/25 07:43
AST 20 U/L (14-36) 07/25/25 07:43
ALT 12 U/L (0-35) 07/25/25 07:43
Alkaline Phosphatase 127 U/L (38-126) H 07/25/25 07:43
Data Reviewed
-
CT Scan: Report Reviewed by me
Lab Data: Labs Reviewed by me
Impression/Plan
-
A/P:
#Fall, most liekly 2/2 chronic progressive ambulatory dysfunction
Patient is not septic, WBC WNL, afebrile, doubt infectious etiology
Telemetry
EKG (not done in ED upon admission)
CT head without acute finsings, however VERY SEVERE WHITE MATTER LEUKOARAIOSIS in both cerebral hemispheres
CPK WNL
#Dementia, unspecified
#Somnolence
#HX of visual halluciantions
#Hx of delirium 2/2 opioids
check TSH, ABG
Currently unable to continue living alone - PT/OT and CM for placement
CLOUD [employer] before starting diet
#Most likely asymptomatic bacteriuria cannot r/o UTI
recently s/p nitafurantoin, that is not sufficient treatmetn for elderly patient
Reasonable Ceftriaxone pendi ng Ucx
absent pyuria with only few bacteria in urine, but left shift present
patient unable to provide if symptoms exist
would monitor
Reflex Ucx sent
#LE swelling
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
#Osseous fusion C3/C4, C4/C5
Severe DJD - PT and tylenol
Unlikely surgical candidate. FIndings obviously chronic
#Opioid and BZD intollerance
Avoid
#Mild chronic anemia
follow CBC
#LE swelling
#HFpEF, unclear if in exacerbation
chest XR
patient not hypoxic
no report of chest pain
EKG, proBNP and serial trop
#Mild hypernatremia
watch BMP
#Afib, unspecified
EKG
Coumadin to cont, follow INR
#DM type 2 with unspecified complications
Accuchecks, Insulin SS, DM diet
check HgbA1c
#Essential HTN
#HLD
cont home meds
DVT ppx coumadin
Full code, but if terminal condition arises - patient does not want rescucitation, feeding tube or HD. diagnostic tests and Abx re appropriate - as discussed in details with son Eugenio Brantley over the phone
I have spent at least 78min reviewing chart, test results, communication with family and providing direct patient care
[2025-07-25 12:13] LABS: B.E. 9.6 mmol/L; HCO3 34.3 mmol/L (21-28); O2 Saturation % 95.7 % (94-98); PCO2 46 mmHg (32-35); PO2 67 mmHg (83-108)
[2025-07-25 12:38] LABS: Troponin I 0.023 ng/ml
[2025-07-25] MEDS: LASIX 20 MG IV (13:30)
--- NOTE | 2025-07-25 14:15 | W.PN.UPDATE ---
Update Note
Progress Note Update
Since drastic mental status change from AM till noon and patient on coumadin after the fall - reasonable to repeat CT head and get neurology consult
#Subacute CHF
Lasix
BiPAP
--- NOTE | 2025-07-25 15:22 | CON.NEURO ---
Neuro Assessment/Plan
Assessment
#AMS
She has a history of a rapid decline in her mental status. Her exam is non-focal making stroke less likely, but progressive multifocal strokes could be a possibility. A subacute decline in mental status has a broad differential such as inflammatory
(i.e. paraneoplastic) or infectious or degenerative such as CJD. her history of hallucinations and cognitive fluctuations could potentially from DLB, but other possiblities should be ruled out. Seizure is less likely because she withdrew to pain on
my exam, but there is the possibility of intermittent sub-clinical seizures. Lastly, catatonia is a possibility as well. I recommend the following for now
Plan
- MRI head w/ and w/o contrast
- routine EEG on Sunday
- rest of care per primary team
Consultation
Order
Date of Consultation: 07/25/25
Requesting Provider: Dr. Barboza
Reason for Consult: AMS
Subjective/Objective
Subjective Data
Date of Service: July 25, 2025
The patient is unable to provide any history. History is obtained from chart review.
HPI: Ms. Brantley is an 85 y.o. female w/ a PMH of HTN, HLD, T2DM, Afib on coumadin (for insurance reasons), recent ORIF who is presenting with a progressive cognitive decline that accelerated 6-8 weeks ago after returning from rehab. She lives
independently. She was found on the floor by the family. She was awake and alert 24 hours before presentation. At home, she said she said she was trying to make her bed. possibly on the floor all night. On presentation, she was awake but did not
provide any history. On my exam, she was not awake. She would withdraw to pain in all extremities.
PMH: per chart
PSH: Unable to obtain due to AMS
Allergies: per chart
Home meds: per chart
FH: Unable to obtain due to AMS
SH: Unable to obtain due to AMS
Objective Data
Vital Signs
Temp Pulse Resp BP Pulse Ox
36.4 C 59 15 102/45 99
07/25/25 07:33 07/25/25 14:00 07/25/25 14:00 07/25/25 14:00 07/25/25 13:45
Lab Results
07/25/25 07:43
07/25/25 07:43
PT 25.2 Sec (11.4-14.6) H 07/25/25 07:43
INR 2.27 07/25/25 07:43
APTT 46.1 Sec (23.4-35.0) H 07/25/25 07:43
Sodium 134 mmol/L (135-145) L 07/25/25 07:43
Potassium 3.5 mmol/L (3.5-5.1) 07/25/25 07:43
BUN 29 mg/dl (7-17) H 07/25/25 07:43
Glucose 150 mg/dl (70-99) H 07/25/25 07:43
Calcium 8.7 mg/dl (8.4-10.2) 07/25/25 07:43
Xdr-C-Ytqlabdlnbn Pept 4210 pg/ml 07/25/25 12:04
Patient Allergies
hydromorphone (From Dilaudid) Allergy (Verified 07/02/25 22:05)
'it makes me crazy' per patient
Review of Systems
-
Unable to obtain full review of systems at this time due to: Lethargy
Physical Exam
-
General: Well Developed and Well Nourished
Eyes: PERRLA (forcibly kept eyes closed. I had to overcome her resistance to open her eyes to check pupils.)
HEENT: Normocephalic, Atraumatic and Anicteric
Respiratory: Clear to Auscultation
Cardiac: Regular Rhythm
GI: Normal Bowel Sounds
Skin: Unremarkable
Psych: Unremarkable
Extended Neurological Exam
Mood & Affect: Unable to Assess
Attention Span & Concentration: Lethargic (Did not respond to any questions. did forcibly keep eyes closed. )
Memory: Unable to Assess
Tremor: Hand Tremor Absent
Involuntary Movement: None
Speech: Unable to Assess
Cranial Nerve II: Left Eye: Other (blink to threat intact. PERRL)
Cranial Nerve II: Right Eye: Other (blink to threat intact. PERRL)
Cranial Nerves III, IV, : Extraocular Movement: Unable to Assess
Cranial Nerve V: Facial Sensation: Unable to Assess
Cranial Nerve VII: Facial Symmetry: Unable to Assess (no asymmetry noted)
Cranial Nerve VIII: Hearing: Unable to Assess
Cranial Nerves IX, X: Palate Movement: Unable to Assess
Cranial Nerve XI: Shoulder Shrug: Unable to Assess
Cranial Nerve XII: Tongue Protusion: Unable to Assess
Muscle Strength, Overall: Other (did not cooperate with confrontational testing. She would prevent her arm from dropping to the bed or on herself when I lifted her arms)
Muscle Bulk & Tone: Bulk Unremarkable and Tone Unremarkable
Pronator Drift: Unable to Assess
Deep Tendon Reflexes: Unremarkable Throughout
Cold Sensation: Unable to Assess
Vibration Sensation: Unable to Assess
Touch Sensation: Unable to Assess
Coordination: Unable to Assess
Gait & Station: Unable to Assess
Data Reviewed
-
CT Head: Image Reviewed (no acute hemorrhage)
Medications
-
Home Medications
�Medication �Instructions �Recorded
losartan 25 mg tablet 25 mg PO BID Blood Pressure 08/20/23
metformin 500 mg tablet 500 mg PO BID@0800,1700 Diabetes 08/20/23
simvastatin 10 mg tablet 10 mg PO QPM High Cholesterol 08/20/23
metoprolol succinate 25 mg 25 mg PO BID #60 tabs 04/06/25
tablet,extended release 24 hr
furosemide 20 mg tablet 20 mg PO DAILY Fluid 07/25/25
Retention/Swelling
nitrofurantoin 100 mg PO BID UTI 07/25/25
monohydrate/macrocrystals 100 mg
capsule
pantoprazole 20 mg tablet,delayed 20 mg PO DAILY Gastrointestinal 07/25/25
release Issue
warfarin 1 mg tablet 2 mg PO DAILY 07/25/25
warfarin 3 mg tablet 3 mg PO DAILY Blood Clot 07/25/25
Prevention/Tx
--- NOTE | 2025-07-25 19:00 | PTCARENOTE ---
Admitted to [id number], IMU monitors placed. Arrived on bipap, pt AAOx2 agitated wanted to get it off. D/w provider ok to remove and allow soft diet. RT removed bipap, remains on rair 96%. Afebrile BP 130s/70s. SR on tele. Oriented to room,
admission completed at bedside. Purewick applied. Warm blankets provided. Calm now, bed alarm engaged.
[2025-07-25] MEDS: TYLENOL 650 MG PO (20:11)
[2025-07-25] MEDS: STERILE WATER FOR INJECTION 10 ML IV (20:11)
[2025-07-25] MEDS: LIPITOR 10 MG PO (20:11)
[2025-07-25] MEDS: COZAAR 25 MG PO (20:11)
[2025-07-25] MEDS: ROCEPHIN 1000 MG IV (20:11)
[2025-07-25] MEDS: NSS 250 IV (22:34)
[2025-07-26] VITALS (16 sets, daily range): BP systolic 91–134; BP diastolic 39–96; PULSE 78; O2SAT 95–98; BMI 28.2
--- NOTE | 2025-07-26 02:23 | PTCARENOTE ---
Assumed care for patient overnight. Pt AAOx3, pt drowsy slightly irritable at this time. Received pt on room air, 94%. Pt noted to be snoring. Pt BP running soft 80s/40s. JIMMY Carver notified, new orders for 250ml fluid bolus. BP remained soft, new
orders for one time midodrine. Pt incontinent of urine 2 episodes of incontinence, Purewick replaced and pericare done. CHG bath done. Yellow urine. Spoke to pharmacy regarding frequency of home warfarin, pt unable to recall dosage or frequency. NSR
to SB on the monitor. Educated on the use of the call jaquez, within reach. Bed alarm on.
--- NOTE | 2025-07-26 04:20 | PTCARENOTE ---
New red papular rash noted on b/l legs. Pt denies any itchiness or discomfort associated to rash. Pt afebrile. Will pass along to dayshift team.
[2025-07-26 04:45] LABS: ALT (SGPT) 10 U/L (0-35); AST (SGOT) 17 U/L (14-36); Albumin 3.3 g/dl (3.5-5.0); Alkaline Phosphatase 122 U/L (38-126); Blood Urea Nitrogen 29 mg/dl (7-17); Calcium 8.6 mg/dl (8.4-10.2); Carbon Dioxide 33 mmol/L (22-30); Chloride 99 mmol/L (98-107); Estimated Creatinine Clearance 42 ml/min; Glucose 93 mg/dl (70-99); Potassium 3.2 mmol/L (3.5-5.1); Sodium 137 mmol/L (135-145); Total Protein 6.0 g/dl (6.3-8.2); eGFR > 60.00
[2025-07-26 04:58] LABS: Troponin I 0.019 ng/ml
[2025-07-26 05:36] LABS: Vitamin B12 606 pg/ml (239-931)
[2025-07-26 05:45] LABS: Hematocrit 29.8 % (37.0-47.0); Hemoglobin 10.0 g/dL (12.0-16.0); Mean Corp Hgb Conc. 33.6 g/dL (33.0-37.0); Mean Corpuscular Volume 89.5 fL (81.0-99.0); Nucleated Red Blood Cells % 0 %; Platelet Count 144 10^3/uL (130-400); Red Cell Dist. Width 13.4 % (11.5-14.5)
[2025-07-26 08:03] LABS: Magnesium 1.5 mg/dl (1.6-2.3)
--- NOTE | 2025-07-26 08:28 | W.PN.HOSP.TC ---
Today's Communication/Plan
-
see PN
Assessment / Plan
Assessment / Plan
85yo F with PMHX of Afib on Coumadin (due to insurance issues), HTN, DM, HLD, progressive cognitive decline that accelerated 6-8 weeks ago after she returned from rehab, living alone was brought by family after she was found on the floor, unable to
raise herself up. Patient with significant Hx of progressive dementia with hallucinations over past few months since her D/C from rehab. Initially patient presented with being selectively uncooperative, laying with closed eyes and being stiff, later
resolved. Has significant confabulations and memory impairment, mostly short term.
A/P:
#Fall, most liekly 2/2 chronic progressive ambulatory dysfunction
Patient is not septic, WBC WNL, afebrile, doubt infectious etiology
Telemetry
EKG (not done in ED upon admission)
CT head without acute finsings, however VERY SEVERE WHITE MATTER LEUKOARAIOSIS in both cerebral hemispheres
CPK WNL
#Dementia, unspecified with behavioural distrurbances
#Somnolence
#HX of visual halluciantions
#Hx of delirium 2/2 opioids
TSH WNL
ABG with minimal CO2 retention, but no acidosis - most likely chronic
Currently unable to continue living alone - PT/OT and CM for placement
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
Neurology consult: MRI brain, EEG recommended
#b/l LE hives
suspect Abx allergy - stop
follow for resolution, s/p benadryl
#Most likely asymptomatic bacteriuria cannot r/o UTI
recently s/p nitafurantoin, that is not sufficient treatmetn for elderly patient
developed LE rash on ROcephin
with absent overt symptoms (fever, leukocytosis): hold Abx pending Ucx
absent pyuria with only few bacteria in urine, but left shift present
would monitor
#Afib, unspecified
#Episodes of PVC concerning for VTach
Catrdio consult
telemetry
syspect PVC 2/2 hypokalemia and hypomagnesemia - replete and follow
Coumadin to cont, follow INR
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
#Osseous fusion C3/C4, C4/C5
Severe DJD - PT and tylenol
Unlikely surgical candidate. FIndings obviously chronic
#Opioid and BZD intollerance
Avoid
#Mild chronic anemia
follow CBC
check FOBT
anemia w/u
#LE swelling
#HFpEF, acute on chronic on admission
chest XR with minimal pulmonary edema
LE swelling resolved after 1 dose IV lasix -cont oral after repleting electrolytes
patient not hypoxic
no report of chest pain
serial trop WNL
no chest pain
#Hypokalemia
#Hypomagnesemia
suspect poor oral intake and lasix combination
#Mild hyponatremia
watch BMP
replete
#DM type 2 with unspecified complications
Accuchecks, Insulin SS, DM diet
check HgbA1c
#Essential HTN with hypotension
#HLD
cont statin, hold Losartan
#Chronic mild recurrent elevation of alk.phos
most likely bone origin
follow LFT
no RUQ pain
DVT ppx coumadin
Full code, but if terminal condition arises - patient does not want rescucitation, feeding tube or HD. diagnostic tests and Abx re appropriate - as discussed in details with son Eugenio Brantley over the phone
I have spent at least 59min reviewing chart, test results, communication with consultnats and providing direct patient care
Anticipated Discharge: > 48 hours
Subjective/Interval History
-
Date of Service: July 26, 2025
Objective Data
-
Labs:
Laboratory Results
07/26/25
03:53
WBC 5.3
Hgb 10.0 L
Hct 29.8 L
Plt Count 144
Sodium 137
Potassium 3.2 L
Chloride 99
Carbon Dioxide 33 H
BUN 29 H
Creatinine 0.9
Glucose 93
Calcium 8.6
Total Bilirubin 0.8
AST 17
ALT 10
Alkaline Phosphatase 122
Vital Signs:
Vital Signs
Temp Pulse Resp BP Pulse Ox
98.7 F 70 15 134/45 96
07/26/25 08:20 07/26/25 08:00 07/26/25 08:00 07/26/25 08:00 07/26/25 08:00
I&O
07/25/25 07/26/25 07/27/25
06:59 06:59 06:59
Intake Total 430 / 430
Output Total 400 / 400
Balance 30 / 30
Review of Systems
-
Unable to obtain full review of systems at this time due to: Dementia
History Source: Patient
Physical Exam
-
General: No Apparent Distress
HEENT: Normocephalic
Respiratory: Clear to Auscultation
Cardiac: Regular Rhythm
GI: Soft, Nontender and Nondistended
Skin: Rash (b/l LE)
Neuro: Awake, Alert, Oriented (to herself) and No Motor Deficits
Psych: Calm, Confused and Apparent Dementia
[2025-07-26] MEDS: MAGNESIUM SULFATE 100 IV (08:54)
[2025-07-26 09:00] LABS: Iron 35 ug/dl (37-170); LDH 220 U/L (120-246)
[2025-07-26 09:09] LABS: Total Iron Binding Capacity 247 ug/dl (265-497)
[2025-07-26 09:10] LABS: Reticulocyte Count 0.7 % (0.4-2.8)
[2025-07-26 09:38] LABS: Ferritin 271.0 ng/ml (11.1-264.0)
[2025-07-26 10:09] LABS: Folate 12.7 ng/ml (2.76-20)
--- NOTE | 2025-07-26 10:48 | PTCARENOTE ---
Patient off unit for MRI of the brain for altered mental status.
--- NOTE | 2025-07-26 10:52 | W.PN.UPDATE ---
Update Note
Progress Note Update
as per review with card - telemetry findings are artifact, no pauses after episodes seen, no clear VT. replete electrolytes and no need in card consult
[2025-07-26] MEDS: COUMADIN 2 MG PO (12:25)
[2025-07-26] MEDS: COUMADIN 3 MG PO (12:26)
[2025-07-26] MEDS: KCL 40 MEQ PO ×2 (12:26→19:58)
[2025-07-26] MEDS: PROTONIX 20 MG PO (12:27)
[2025-07-26] MEDS: BENADRYL 25 MG PO (12:35)
--- NOTE | 2025-07-26 14:03 | W.PN.NEURO.1 ---
Today's Communication / Plan
-
to primary team via tiger connect
Neuro Assessment/Plan
Assessment
#AMS- resolved
#Ambulatory dysfunction
Her AMS has resolved. Unclear what caused transient AMS. Her CO2 was elevated but not acidotic, which suggests that it's chronic. Her MRI didn't show an acute stroke or other pathology to explain transient AMS. It did show significant white matter
disease. Her walking was consistent with a parkinsonian gait, but she didn't have any other signs of PD. 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
carbidopa/Levadopa.
Plan
- will need PT for gait dysfunction
- EEG no longer needed
Subjective/Objective
Subjective Data
Date of Service: July 26, 2025
She is awake and alert today. She remembers falling and being on the ground for a day. She used her cane to make noise, and eventually a neigher heard her. She remember going into the ambulance. She doesn't remember being in the ED. She tells me
that her trouble walking started in March. Prior to that she was walking fine. She feels unsteady when she walks, not dizzy or light headed. She had a fall in March trying to be super mom and carry 3 bags into the house and missed the curb. After
the fall, her walking changed. She uses a cane or walker to walk. No weakness or numbness. Her MRI was negative for stroke or acute pathology. Did show severe white matter disease.
Objective Data
Vital Signs
Temp Pulse Resp BP Pulse Ox
37.2 C 88 25 115/42 93
07/26/25 11:27 07/26/25 12:01 07/26/25 12:01 07/26/25 10:00 07/26/25 10:00
Lab Results
07/26/25 03:53
07/26/25 03:53
PT 25.2 Sec (11.4-14.6) H 07/25/25 07:43
INR 2.27 07/25/25 07:43
APTT 46.1 Sec (23.4-35.0) H 07/25/25 07:43
Sodium 137 mmol/L (135-145) 07/26/25 03:53
Potassium 3.2 mmol/L (3.5-5.1) L 07/26/25 03:53
BUN 29 mg/dl (7-17) H 07/26/25 03:53
Glucose 93 mg/dl (70-99) 07/26/25 03:53
Calcium 8.6 mg/dl (8.4-10.2) 07/26/25 03:53
Toy-F-Vvxwkkbrxdz Pept 4210 pg/ml 07/25/25 12:04
Vitamin B12 606 pg/ml (239-931) 07/26/25 03:53
Patient Allergies
Cephalosporins Allergy (Intermediate, Verified 07/26/25 08:28)
Hives
hydromorphone (From Dilaudid) Allergy (Verified 07/02/25 22:05)
'it makes me crazy' per patient
Physical Exam
-
General: Well Developed, Well Nourished and No Apparent Distress
Eyes: Unremarkable, No Ptosis and PERRLA
HEENT: Normocephalic and Atraumatic
Respiratory: Clear to Auscultation
Cardiac: Regular Rhythm
GI: Normal Bowel Sounds
Skin: Unremarkable
Extended Neurological Exam
Mood & Affect: Mood Unremarkable, Affect Unremarkable and Other (tangential thoughts. Not confabulatory.)
Attention Span & Concentration: Awake, Alert, Interactive and No Difficulty with 2 Step Request
Memory: Able to Recall (1/3 words on delayed recall spontaneously and 2/3 with category cues)
Tremor: Hand Tremor Absent
Involuntary Movement: None
Speech: Quality Unremarkable, Quantity Unremarkable and Rate of Production Unremarkable
Cranial Nerve II: Left Eye: Pupillary Reactivity Unremarkable and Visual Delarosa Intact
Cranial Nerve II: Right Eye: Pupillary Reactivity Unremarkable and Visual Delarosa Intact
Cranial Nerves III, IV, : Extraocular Movement: Extraocular Movement Full in all Directions and No Ptosis
Cranial Nerve V: Facial Sensation: Intact to Light Touch
Cranial Nerve VII: Facial Symmetry: Normal Facial Symmetry
Cranial Nerve VIII: Hearing: Unremarkable Hearing to Normal Conversational Volume
Cranial Nerves IX, X: Palate Movement: Palate Elevation Symmetric
Cranial Nerve XI: Shoulder Shrug: Unremarkable
Cranial Nerve XII: Tongue Protusion: Midline
Muscle Strength, Overall: Full Throughout
Muscle Bulk & Tone: Bulk Unremarkable and Tone Unremarkable
Deep Tendon Reflexes: Unremarkable Throughout
Touch Sensation: Unremarkable
Coordination: Buwbjh-mvnw-zejaum Testing Unremarkable
Gait & Station: Unable to Assess (trouble getting out of chair. Needed to use arms of chair. took small shuffling steps when walking.)
Data Reviewed
-
MRA Head: Image Reviewed (No acute stroke. Severe SVID throughout. )
--- NOTE | 2025-07-26 15:14 | CM ---
Addendum entered by Shae De La Paz 07/26/25 15:50:
Conference call with juan/Eugenio and son Cruzito/Regulo
They would be intereste din pursuing [employer] waiver if eligible
ZANDER will continue to work on LTC application and willing to private pay for SNF at [facility] if needed
Sofi/ZANDER is a security infrastructure engineer in [place] working on a trial currently
Requested if he doesn't answer cell, call his work office number and ask for his staff to escalate call to him regarding his mother and pull him off of bench
VM left for admissions with work number [phone]
Original Note:
CM reviewed pt with attending- requested CM start dc planning efforts
Bedside meeting with pt who is requesting SNF placement [facility]
VM left for Sofi FERMIN per her request
Call with other son/Cruzito
He noted they are seeking LTC placement at [facility], his brother spoke with [facility] day prior to start application
He is aware pt is without qualifying stay and would be private bernardino
Referral sent and pending
Can consider reaching out to [facility] waiver for eligibility
Discharge Disposition- SNF LTC, private pay
--- NOTE | 2025-07-26 17:39 | PTOTSP ---
Acute Care Evaluation
Pt currently presents with clinical signs of a functional oropharyngeal and esophageal swallow. No overt s/s of penetration or aspiration noted with the consistencies trialed at bedside. Cannot rule out silent aspiration at bedside. No skilled
dysphagia services indicated at this time.
Pt is currently presenting with clinical signs of at least a moderate cognitive linguistic impairment (MOCA=16/30), characterized by deficits primarily in the areas of visuospatial awareness, executive functioning, working memory, and
divided/alternating attention, all of which are fundamental skills for completing ADLs such as driving, management of finances, management/adherence to medication regimen, cooking on a stove, etc.
Recommendations:
- Upgrade diet to regular solids, thin liquids, and meds as tolerated with general aspiration precautions.
- No skilled dysphagia tx warranted at this time.
- DATA POWER CONSULTANT team to continue cognitive linguistic tx while admitted in hospital.
- Recommending continued DATA POWER CONSULTANT cognitive linguistic tx/interventions/support at next level of care.
- Pt would benefit from additional supervision/assistance at time of discharge with higher-level cognitive tasks due to deficits identified for safety purposes. Pt's sons appear to be on board with increasing pt's level of support upon discharge.
--- NOTE | 2025-07-26 17:47 | PTCARENOTE ---
Patient out of bed with assistance x1 and walker. Patient alert and oriented, forgetful and has poor insight. Patient fall risk. Diet was advanced to regular diet for dinner. VS stable,afebrile. Bilateral leg rash red and warm. MD notified.
Antibiotics discontinued and patient received one time dose of benadryl.
[2025-07-26] MEDS: LIPITOR 10 MG PO (18:27)
[2025-07-27] VITALS (13 sets, daily range): BP systolic 91–133; BP diastolic 39–92; BMI 28.6
--- NOTE | 2025-07-27 01:22 | PTCARENOTE ---
At beginning of shift patient aaox3, cooperative. Pt orientation and mentation seems to wax and wane. Pt irritable at times. Pt had to be reminded of high fall risk and reeducated on the use of call jaquez. BP soft w/ low MAP 55. ASTHMA EDUCATOR Matt made
aware, new orders for midodrine 2.5mg. Pt ambulating to the bathroom with x1 assist and a rolling walker. NSR on the monitor. Remains on room air, 94%. Bed alarm is on.
[2025-07-27 04:58] LABS: Hematocrit 31.5 % (37.0-47.0); Hemoglobin 10.4 g/dL (12.0-16.0); Mean Corp Hgb Conc. 33.0 g/dL (33.0-37.0); Mean Corpuscular Volume 86.8 fL (81.0-99.0); Nucleated Red Blood Cells % 0 %; Platelet Count 151 10^3/uL (130-400); Red Cell Dist. Width 13.6 % (11.5-14.5)
[2025-07-27 05:12] LABS: INR 2.27; PT 25.2 Sec (11.4-14.6)
[2025-07-27 05:20] LABS: ALT (SGPT) < 10 U/L (0-35); AST (SGOT) 15 U/L (14-36); Albumin 2.9 g/dl (3.5-5.0); Alkaline Phosphatase 110 U/L (38-126); Blood Urea Nitrogen 28 mg/dl (7-17); Calcium 8.7 mg/dl (8.4-10.2); Carbon Dioxide 31 mmol/L (22-30); Chloride 99 mmol/L (98-107); Estimated Creatinine Clearance 34 ml/min; Glucose 105 mg/dl (70-99); Magnesium 2.5 mg/dl (1.6-2.3); Potassium 4.7 mmol/L (3.5-5.1); Sodium 132 mmol/L (135-145); Total Protein 5.5 g/dl (6.3-8.2); eGFR 49.86
--- NOTE | 2025-07-27 09:26 | PTCARENOTE ---
Throughout the morning, pt becoming extremely paranoid, agitated, and requesting to leave AMA. Pt refusing to have further tests, refusing medications and refusing to allow this RN to do a physical assessment on her. Pt's son Cruzito ha, reports he
is not willing to take pt home and is not in agreement with AMA. Attempts made to provide emotional support and calm pt. Dr. Hernandez notified of situation via TT.
[2025-07-27] MEDS: NOVOLOG FLEXPEN-LOW RESISTANCE SC ×3 (09:35→17:37)
[2025-07-27] MEDS: COUMADIN PO ×2 (09:35)
--- NOTE | 2025-07-27 09:35 | PTCARENOTE ---
Pt refusing to allow accucheck at this time.
[2025-07-27] MEDS: PROTONIX PO (09:36)
--- NOTE | 2025-07-27 10:39 | PTCARENOTE ---
Pt agreeable to allow this RN to perform nursing shift assessment at this time- see flowsheet.
--- NOTE | 2025-07-27 11:18 | EEG.RPT ---
Electroencephalogram Report
Recording
Date of EE07/27/25
Type of EEG: Routine
Length of EEG recordin minutes
Done with Video Recording: Yes
Patient Status: Inpatient
Recording Conditions: Awake and Drowsy
Hyperventilation Performed: No
Photic Stimulation Performed: Yes
Report
LESS THAN 1 HOUR EEG REPORT
LESS THAN 1 HOUR EEG INTERPRETATION:
Likely unremarkable EEG for age
CLINICAL CORRELATION:
Although normative values not been established for a person of this advanced age, the patient�s symmetry of the background suggests that this study was unremarkable.
A normal EEG does not rule out a diagnosis of epilepsy. If clinical suspicion for seizure persists, a prolonged recording may be warranted.
Clinical correlation is advised.
METHODS:
A 21 channel digitized electroencephalogram (EEG) was performed using the 10/20 international system of electrode placement and one-lead of ECG recorded. The [employer] quantitative review system was utilized.
ELECTROENCEPHALOGRAPHER IMPRESSION(S):
Quality of study
Good
Background
There was an unremarkable anterior-posterior voltage gradient of alpha frequency.
With eye opening the background activity changed to a low voltage mixture of frequencies.
There were no significant asymmetries of background activity noted.
Sleep
Drowsiness present
Photic Stimulation
No driving
ECG
Normal sinus rhythm
[2025-07-27 12:19] LABS: Glucose - Point of Care 108 mg/dl (70-99)
--- NOTE | 2025-07-27 13:58 | W.PN.HOSP.TC ---
Today's Communication/Plan
-
Assessment / Plan
Assessment / Plan
85yo F with PMHX of Afib on Coumadin (due to insurance issues), HTN, DM, HLD, progressive cognitive decline that accelerated 6-8 weeks ago after she returned from rehab, living alone was brought by family after she was found on the floor, unable to
raise herself up. Patient with significant Hx of progressive dementia with hallucinations over past few months since her D/C from rehab. Initially patient presented with being selectively uncooperative, laying with closed eyes and being stiff, later
resolved. Has significant confabulations and memory impairment, mostly short term.
Fall
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
-per neuro carbidopa/levodopa did not help with this
PT recommending SNF for which at this time Ms. Brantley is fighting states that she does not want to go to
I spoke with Cruzito her son on 07/27/2025
He is aware of her feelings of SNF. Tells me that they are working on getting her into [facility] and respite care. Unable to set up 24-hour care at home
#?Dementia, unspecified with behavioural distrurbances
#Somnolence
#HX of visual halluciantions
#Hx of delirium 2/2 opioids
TSH WNL
ABG with minimal CO2 retention, but no acidosis - most likely chronic
Currently unable to continue living alone - PT/OT and CM for placement
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
Neuro follow
#b/l LE hives
suspect Abx allergy - stop
follow for resolution, s/p benadryl
#Most likely asymptomatic bacteriuria cannot r/o UTI
recently s/p nitafurantoin, that is not sufficient treatmetn for elderly patient
developed LE rash on ROcephin
with absent overt symptoms (fever, leukocytosis): hold Abx pending Ucx
absent pyuria with only few bacteria in urine, but left shift present
would monitor
#Afib, unspecified
#Episodes of PVC concerning for VTach
Cards consult
telemetry
syspect PVC 2/2 hypokalemia and hypomagnesemia - replete and follow
Coumadin to cont, follow INR
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
#Osseous fusion C3/C4, C4/C5
Severe DJD - PT and tylenol
Unlikely surgical candidate. FIndings obviously chronic
#Opioid and BZD intollerance
Avoid
#Mild chronic anemia
follow CBC
check FOBT
anemia w/u
#LE swelling
#HFpEF, acute on chronic on admission
chest XR with minimal pulmonary edema
LE swelling resolved after 1 dose IV lasix -cont oral after repleting electrolytes
patient not hypoxic
no report of chest pain
serial trop WNL
no chest pain
#Hypokalemia
#Hypomagnesemia
suspect poor oral intake and lasix combination
#Mild hyponatremia
watch BMP
replete
#DM type 2 with unspecified complications
Accuchecks, Insulin SS, DM diet
check HgbA1c
#Essential HTN with hypotension
#HLD
cont statin, hold Losartan
#Chronic mild recurrent elevation of alk.phos
most likely bone origin
follow LFT
no RUQ pain
DVT ppx coumadin
Full code, but if terminal condition arises - patient does not want rescucitation, feeding tube or HD. diagnostic tests and Abx re appropriate - as discussed in details with son Eugenio Brantley over the phone
Anticipated Discharge: 24 - 48 hours
Subjective/Interval History
-
Date of Service: July 27, 2025
Seen and examined. No new complaints. No acute overnight events.
She had an EEG completed this morning. She did not like the feeling of this EEG. As a cause her to have a burning sensation on her head from the stickers.
Was very upset by this. She had called her sons to let them know.
Objective Data
-
Labs:
Laboratory Results
07/27/25 07/27/25
04:38 04:42
WBC 5.4
Hgb 10.4 L
Hct 31.5 L
Plt Count 151
PT 25.2 H
INR 2.27
Sodium 132 L
Potassium 4.7 D
Chloride 99
Carbon Dioxide 31 H
BUN 28 H
Creatinine 1.1 H
Glucose 105 H
Calcium 8.7
Total Bilirubin 0.5
AST 15
ALT < 10
Alkaline Phosphatase 110
Vital Signs:
Vital Signs
Temp Pulse Resp BP Pulse Ox
98.0 F 76 25 133/60 94
07/27/25 12:08 07/27/25 12:08 07/27/25 12:08 07/27/25 12:08 07/27/25 10:41
I&O
07/26/25 07/27/25 07/28/25
06:59 06:59 06:59
Intake Total 430 / 430 2240 / 2240
Output Total 400 / 400 400 / 400
Balance 30 / 30 1840 / 1840
Physical Exam
-
General: Well Developed, Well Nourished, No Apparent Distress and Comfortable
HEENT: Normocephalic and Atraumatic
Respiratory: Clear to Auscultation
Cardiac: S1/S2
GI: Soft, Nontender, Nondistended and Normal Bowel Sounds
Musculoskeletal: No Clubbing and No Cyanosis
Skin: Warm and Dry
Neuro: Awake and AO x 3
Psych: Calm
--- NOTE | 2025-07-27 16:36 | PTCARENOTE ---
Pt continues to have labile moods and orientation. Pt states she has not received her meds in two days- reminded pt she has refused them despite several attempts to get her to take them. States she is willing to take her meds from this point on. Pt
also requesting to be 'back where she was this morning'. Educated pt that she has been in this room the whole day. Bed alarm remains in place and call jaquez within reach.
[2025-07-27 17:36] LABS: Glucose - Point of Care 126 mg/dl (70-99)
--- NOTE | 2025-07-27 17:42 | CM ---
F/U: PATRICK Ring was updated by covering CM from the wknd on this case. It seems that family/ son wants [facility], but prior maybe respite or SNF, possibly via [employer] (only can go to [facility], [facility], and [facility] if there
are beds. CM spoke to son Cruzito who wants NO SNF, but respite because that is what mom would want vs. a rehab. CM did find out that [facility] does not have any beds for SNF. CM then provided information about [facility]
where patient/ family pay out of pocket for 2-4 weeks until the permanent place is open. This is what Cruzito ultimately wants, thus the Liaison Monse will have a conversation with him tonight to discuss place and cost, then get back to CM tomorrow.
PLAN: Respite program vs. SNF.
[2025-07-27] MEDS: LIPITOR 10 MG PO (17:53)
[2025-07-27 22:30] LABS: Glucose - Point of Care 179 mg/dl (70-99)
[2025-07-28] VITALS (14 sets, daily range): BP systolic 95–168; BP diastolic 50–82; PULSE 85; BMI 28.6
--- NOTE | 2025-07-28 05:58 | PTCARENOTE ---
Pt with intermittent episodes of confusion, however remains redirectable. Agreeable with care upon explanation. States that she wants to take her meds today and inquires about physical therapy. Pt used purewick throughout the night for incontinence
and hygiene care was performed several times. Warm blanket placed at pt's request. Call jaquez within reach. Bed alarm in place for pt safety. Care ongoing.
[2025-07-28 06:13] LABS: INR 2.05; PT 23.3 Sec (11.4-14.6)
[2025-07-28 06:29] LABS: Blood Urea Nitrogen 19 mg/dl (7-17); Calcium 8.9 mg/dl (8.4-10.2); Carbon Dioxide 26 mmol/L (22-30); Chloride 106 mmol/L (98-107); Estimated Creatinine Clearance 47 ml/min; Glucose 111 mg/dl (70-99); Potassium 4.5 mmol/L (3.5-5.1); Sodium 138 mmol/L (135-145); eGFR > 60.00
[2025-07-28 07:59] LABS: Glucose - Point of Care 129 mg/dl (70-99)
[2025-07-28] MEDS: NOVOLOG FLEXPEN-LOW RESISTANCE SC (08:36)
[2025-07-28] MEDS: COUMADIN 2 MG PO (08:48)
[2025-07-28] MEDS: PROTONIX 20 MG PO (08:48)
[2025-07-28] MEDS: COUMADIN 3 MG PO (08:49)
--- NOTE | 2025-07-28 09:51 | PTCARENOTE ---
Assumed care of patient at beginnig of this shift from previous RN. Patient Ox2, anxious and forgetful at times. See worklist for full assessment and vital signs.
[2025-07-28] MEDS: NOVOLOG FLEXPEN-LOW RESISTANCE 2 UNITS SC ×2 (12:24→17:17)
[2025-07-28 12:33] LABS: Glucose - Point of Care 211 mg/dl (70-99)
--- NOTE | 2025-07-28 13:42 | W.PN.HOSP.TC ---
Today's Communication/Plan
-
Assessment / Plan
Assessment / Plan
85yo F with PMHX of Afib on Coumadin (due to insurance issues), HTN, DM, HLD, progressive cognitive decline that accelerated 6-8 weeks ago after she returned from rehab, living alone was brought by family after she was found on the floor, unable to
raise herself up. Patient with significant Hx of progressive dementia with hallucinations over past few months since her D/C from rehab. Initially patient presented with being selectively uncooperative, laying with closed eyes and being stiff, later
resolved. Has significant confabulations and memory impairment, mostly short term.
General: Well Developed, Well Nourished, No Apparent Distress and Comfortable
HEENT: Normocephalic and Atraumatic
Respiratory: Clear to Auscultation
Cardiac: S1/S2
GI: Soft, Nontender, Nondistended and Normal Bowel Sounds
Musculoskeletal: No Clubbing and No Cyanosis
Skin: Warm and Dry
Neuro: Awake and AO x 3
Psych: Calm
Fall
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
-per neuro carbidopa/levodopa did not help with this
PT recommending SNF for which at this time Ms. Brantley is fighting states that she does not want to go to
I spoke with Cruzito her son on 07/27/2025
He is aware of her feelings of SNF. Tells me that they are working on getting her into [facility] and respite care. Unable to set up 24-hour care at home
#?Dementia, unspecified with behavioural distrurbances
#Somnolence
#HX of visual halluciantions
#Hx of delirium 2/2 opioids
TSH WNL
ABG with minimal CO2 retention, but no acidosis - most likely chronic
Currently unable to continue living alone - PT/OT and CM for placement
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
Neuro follow
#b/l LE hives
suspect Abx allergy - stop
follow for resolution, s/p benadryl
#Most likely asymptomatic bacteriuria cannot r/o UTI
recently s/p nitafurantoin, that is not sufficient treatmetn for elderly patient
developed LE rash on ROcephin
with absent overt symptoms (fever, leukocytosis): hold Abx pending Ucx
absent pyuria with only few bacteria in urine, but left shift present
would monitor
#Afib, unspecified
#Episodes of PVC concerning for VTach
Cards consult
telemetry
syspect PVC 2/2 hypokalemia and hypomagnesemia - replete and follow
Coumadin to cont, follow INR
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
#Osseous fusion C3/C4, C4/C5
Severe DJD - PT and tylenol
Unlikely surgical candidate. FIndings obviously chronic
#Opioid and BZD intollerance
Avoid
#Mild chronic anemia
follow CBC
check FOBT
anemia w/u
#LE swelling
#HFpEF, acute on chronic on admission
chest XR with minimal pulmonary edema
LE swelling resolved after 1 dose IV lasix -cont oral after repleting electrolytes
patient not hypoxic
no report of chest pain
serial trop WNL
no chest pain
#Hypokalemia
#Hypomagnesemia
suspect poor oral intake and lasix combination
#Mild hyponatremia
watch BMP
replete
#DM type 2 with unspecified complications
Accuchecks, Insulin SS, DM diet
check HgbA1c
#Essential HTN with hypotension
#HLD
cont statin, hold Losartan
#Chronic mild recurrent elevation of alk.phos
most likely bone origin
follow LFT
no RUQ pain
DVT ppx coumadin
Full code, but if terminal condition arises - patient does not want rescucitation, feeding tube or HD. diagnostic tests and Abx re appropriate - as discussed in details with son Eugenio Brantley over the phone
Continue to have case management discussed with family next of kin and power of title attorney about disposition
Anticipated Discharge: Within 24 hours
Subjective/Interval History
-
Date of Service: July 28, 2025
Seen and examined. No new complaints. No acute overnight events.
Objective Data
-
Labs:
Laboratory Results
07/28/25 07/28/25
05:38 05:39
PT 23.3 H
INR 2.05
Sodium 138
Potassium 4.5
Chloride 106
Carbon Dioxide 26
BUN 19 H
Creatinine 0.8
Glucose 111 H
Calcium 8.9
Vital Signs:
Vital Signs
Temp Pulse Resp BP Pulse Ox
98.6 F 77 27 121/76 95
07/28/25 03:00 07/28/25 12:25 07/28/25 12:25 07/28/25 12:25 07/28/25 09:27
I&O
07/27/25 07/28/25 07/29/25
06:59 06:59 06:59
Intake Total 2240 / 2240 600 / 600
Output Total 400 / 400 2100 / 2100
Balance 1840 / 1840 -1500 / -1500
--- NOTE | 2025-07-28 16:16 | CM ---
F/U: PATRICK Ring received a call from the son Cruzito that he wants CM to look into the [facility] program because they are no so interested in Respite at an Assisted Living. PATRICK spoke to [facility], faxed clinical, received a call back to be told that she is
not appropriate for their waiver- she is LTC, which is a higher level, and do not have the diagnosis. Since patient is still observation, called son Cruzito to state that the only option is Respite care or home. In the meantime, Monse from [facility] has been speaking with them and helping as well as another person. Cruzito called back towards the end of the day to say that '[facility]' will come to eval tomorrow morning, then if accepted, could go. PLAN: Respite at Assisted
Living,
[2025-07-28 17:00] LABS: Glucose - Point of Care 234 mg/dl (70-99)
[2025-07-28] MEDS: LIPITOR 10 MG PO (17:16)
[2025-07-28 22:01] LABS: Glucose - Point of Care 127 mg/dl (70-99)
[2025-07-29] VITALS (13 sets, daily range): BP systolic 126–160; BP diastolic 58–94; PULSE 77–90; BMI 28.4
--- NOTE | 2025-07-29 00:50 | PTCARENOTE ---
Assumed care for patient. Pt with intermittent confusion, tonight stating she is at her sons house. Pt attempted to walk to the bathroom setting off bed alarm. Pt able to be redirected and cooperative at that time. VSS. NSR on the monitor. Room air,
95%. Reeducated on the use of the call jaquez, bed alarm is on.
[2025-07-29 05:10] LABS: INR 1.83; PT 21.3 Sec (11.4-14.6)
[2025-07-29 07:47] LABS: Glucose - Point of Care 116 mg/dl (70-99)
[2025-07-29] MEDS: NOVOLOG FLEXPEN-LOW RESISTANCE SC ×2 (09:19→14:04)
[2025-07-29] MEDS: COUMADIN 3 MG PO (09:20)
[2025-07-29] MEDS: COUMADIN 2 MG PO (09:20)
[2025-07-29] MEDS: PROTONIX 20 MG PO (09:21)
[2025-07-29 12:44] LABS: Glucose - Point of Care 124 mg/dl (70-99)
--- NOTE | 2025-07-29 13:52 | W.PN.HOSP.TC ---
Today's Communication/Plan
-
Assessment / Plan
Assessment / Plan
85yo F with PMHX of Afib on Coumadin (due to insurance issues), HTN, DM, HLD, progressive cognitive decline that accelerated 6-8 weeks ago after she returned from rehab, living alone was brought by family after she was found on the floor, unable to
raise herself up. Patient with significant Hx of progressive dementia with hallucinations over past few months since her D/C from rehab. Initially patient presented with being selectively uncooperative, laying with closed eyes and being stiff, later
resolved. Has significant confabulations and memory impairment, mostly short term.
General: Well Developed, Well Nourished, No Apparent Distress and Comfortable
HEENT: Normocephalic and Atraumatic
Respiratory: Clear to Auscultation
Cardiac: S1/S2
GI: Soft, Nontender, Nondistended and Normal Bowel Sounds
Musculoskeletal: No Clubbing and No Cyanosis
Skin: Warm and Dry
Neuro: Awake and AO x 3
Psych: Calm
Fall
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
-per neuro carbidopa/levodopa did not help with this
PT recommending SNF for which at this time Ms. Brantley is fighting states that she does not want to go to
I spoke with Cruzito her son on 07/27/2025
He is aware of her feelings of SNF. Tells me that they are working on getting her [facility] and respite care. Unable to set up 24-hour care at home
#?Dementia, unspecified with behavioural distrurbances
#Somnolence
#HX of visual halluciantions
#Hx of delirium 2/2 opioids
TSH WNL
ABG with minimal CO2 retention, but no acidosis - most likely chronic
Currently unable to continue living alone - PT/OT and CM for placement
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
Neuro follow
#b/l LE hives
suspect Abx allergy - stop
follow for resolution, s/p benadryl
#Most likely asymptomatic bacteriuria cannot r/o UTI
recently s/p nitafurantoin, that is not sufficient treatmetn for elderly patient
developed LE rash on ROcephin
with absent overt symptoms (fever, leukocytosis): hold Abx pending Ucx
absent pyuria with only few bacteria in urine, but left shift present
would monitor
#Afib, unspecified
#Episodes of PVC concerning for VTach
Cards consult
telemetry
syspect PVC 2/2 hypokalemia and hypomagnesemia - replete and follow
Coumadin to cont, follow INR
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
#Osseous fusion C3/C4, C4/C5
Severe DJD - PT and tylenol
Unlikely surgical candidate. FIndings obviously chronic
#Opioid and BZD intollerance
Avoid
#Mild chronic anemia
follow CBC
check FOBT
anemia w/u
#LE swelling
#HFpEF, acute on chronic on admission
chest XR with minimal pulmonary edema
LE swelling resolved after 1 dose IV lasix -cont oral after repleting electrolytes
patient not hypoxic
no report of chest pain
serial trop WNL
no chest pain
#Hypokalemia
#Hypomagnesemia
suspect poor oral intake and lasix combination
#Mild hyponatremia
watch BMP
replete
#DM type 2 with unspecified complications
Accuchecks, Insulin SS, DM diet
check HgbA1c
#Essential HTN with hypotension
#HLD
cont statin, hold Losartan
#Chronic mild recurrent elevation of alk.phos
most likely bone origin
follow LFT
no RUQ pain
DVT ppx coumadin
Full code, but if terminal condition arises - patient does not want rescucitation, feeding tube or HD. diagnostic tests and Abx re appropriate - as discussed in details with son Eugenio Brantley over the phone
Continue to have case management discussed with family next of kin and power of deputy prosecuting attorney about disposition
Anticipated Discharge: 24 - 48 hours
Subjective/Interval History
-
Date of Service: July 29, 2025
Seen and examined. No new complaints. No acute overnight events. Sitting in bedside chair. Comfortable. Asking if she can walk around her room on her own.
Objective Data
-
Labs:
Laboratory Results
07/29/25
04:37
PT 21.3 H
INR 1.83
Vital Signs:
Vital Signs
Temp Pulse Resp BP Pulse Ox
98.3 F 79 22 142/81 94
07/29/25 12:06 07/29/25 12:16 07/29/25 12:16 07/29/25 12:16 07/29/25 09:00
I&O
07/28/25 07/29/25 07/30/25
06:59 06:59 06:59
Intake Total 600 / 600 240 / 240
Output Total 2100 / 2100
Balance -1500 / -1500 240 / 240
--- NOTE | 2025-07-29 16:45 | CM ---
F/U: [facility] called to say that after the evaluation, patient is accepted, but cannot come until Sunday. There is paperwork that needs to be completed- CM working with Hospitalist on this. CM is aware that there might be more
face to face from other Respite programs. CM met with patient who is aware that the sons are looking for a Respite program at an Assisted Living. PLAN: Assisted Living at [facility]- 07/31.
[2025-07-29 17:08] LABS: Glucose - Point of Care 182 mg/dl (70-99)
[2025-07-29] MEDS: LIPITOR 10 MG PO (18:00)
[2025-07-29] MEDS: NOVOLOG FLEXPEN-LOW RESISTANCE 1 UNITS SC (18:00)
--- NOTE | 2025-07-29 18:11 | PTCARENOTE ---
Patient fall risk. BA and chair alarm in use. Assist x1 with rolling walker. OOB to chair for most of the day. Using BR during the day and pure wick at night. Appetite good. VS stable,afebrile. SR with PVC's. Call jaquez in reach. Will monitor.
[2025-07-29 21:02] LABS: Glucose - Point of Care 160 mg/dl (70-99)
[2025-07-30] VITALS (9 sets, daily range): BP systolic 114–159; BP diastolic 65–84; BMI 28.3
--- NOTE | 2025-07-30 03:18 | PTCARENOTE ---
Assumed care for patient overnight. Pt son at the bedside at change of shift. Pt expressed anxiety regarding having to move out of home. Orientation seems to wax and wane. NSR on the monitor. VSS. Assessment and care as documented. Call jaquez is
within reach, bed alarm on.
[2025-07-30 06:31] LABS: INR 1.96; PT 22.0 Sec (11.4-14.6)
[2025-07-30 08:02] LABS: Glucose - Point of Care 158 mg/dl (70-99)
[2025-07-30] MEDS: NOVOLOG FLEXPEN-LOW RESISTANCE 1 UNITS SC ×2 (08:19→12:34)
[2025-07-30] MEDS: PROTONIX 20 MG PO (08:19)
[2025-07-30] MEDS: COUMADIN 3 MG PO (08:19)
[2025-07-30] MEDS: COUMADIN 2 MG PO (08:20)
--- NOTE | 2025-07-30 11:09 | PTCARENOTE ---
Assumed care of patient at beginning of this shift from previous RN. Patient calling appropriately to use bathroom; purewick removed. OOB to chair and ambulates with 1 assist using RW. See worklist for full assessment and vital signs; see MAR for
med administration.
[2025-07-30 12:23] LABS: Glucose - Point of Care 197 mg/dl (70-99)
--- NOTE | 2025-07-30 14:18 | W.PN.HOSP.TC ---
Today's Communication/Plan
-
Assessment / Plan
Assessment / Plan
85yo F with PMHX of Afib on Coumadin (due to insurance issues), HTN, DM, HLD, progressive cognitive decline that accelerated 6-8 weeks ago after she returned from rehab, living alone was brought by family after she was found on the floor, unable to
raise herself up. Patient with significant Hx of progressive dementia with hallucinations over past few months since her D/C from rehab. Initially patient presented with being selectively uncooperative, laying with closed eyes and being stiff, later
resolved. Has significant confabulations and memory impairment, mostly short term.
General: Well Developed, Well Nourished, No Apparent Distress and Comfortable
HEENT: Normocephalic and Atraumatic
Respiratory: Clear to Auscultation
Cardiac: S1/S2
GI: Soft, Nontender, Nondistended and Normal Bowel Sounds
Musculoskeletal: No Clubbing and No Cyanosis
Skin: Warm and Dry
Neuro: Awake and AO x 3
Psych: Calm
Fall
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
-per neuro carbidopa/levodopa did not help with this
PT recommending SNF for which at this time Ms. Brantley is fighting states that she does not want to go to
I spoke with Cruzito her son on 07/27/2025
He is aware of her feelings of SNF. Tells me that they are working on getting her into [facility] and respite care. Unable to set up 24-hour care at home
#?Dementia, unspecified with behavioural distrurbances
#Somnolence
#HX of visual halluciantions
#Hx of delirium 2/2 opioids
TSH WNL
ABG with minimal CO2 retention, but no acidosis - most likely chronic
Currently unable to continue living alone - PT/OT and CM for placement
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
Neuro follow
#b/l LE hives
suspect Abx allergy - stop
follow for resolution, s/p benadryl
#Most likely asymptomatic bacteriuria cannot r/o UTI
recently s/p nitafurantoin, that is not sufficient treatmetn for elderly patient
developed LE rash on ROcephin
with absent overt symptoms (fever, leukocytosis): hold Abx pending Ucx
absent pyuria with only few bacteria in urine, but left shift present
would monitor
#Afib, unspecified
#Episodes of PVC concerning for VTach
Cards consult
telemetry
syspect PVC 2/2 hypokalemia and hypomagnesemia - replete and follow
Coumadin to cont, follow INR
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
#Osseous fusion C3/C4, C4/C5
Severe DJD - PT and tylenol
Unlikely surgical candidate. FIndings obviously chronic
#Opioid and BZD intollerance
Avoid
#Mild chronic anemia
follow CBC
check FOBT
anemia w/u
#LE swelling
#HFpEF, acute on chronic on admission
chest XR with minimal pulmonary edema
LE swelling resolved after 1 dose IV lasix -cont oral after repleting electrolytes
patient not hypoxic
no report of chest pain
serial trop WNL
no chest pain
#Hypokalemia
#Hypomagnesemia
suspect poor oral intake and lasix combination
#Mild hyponatremia
watch BMP
replete
#DM type 2 with unspecified complications
Accuchecks, Insulin SS, DM diet
check HgbA1c
#Essential HTN with hypotension
#HLD
cont statin, hold Losartan
#Chronic mild recurrent elevation of alk.phos
most likely bone origin
follow LFT
no RUQ pain
DVT ppx coumadin
Full code, but if terminal condition arises - patient does not want rescucitation, feeding tube or HD. diagnostic tests and Abx re appropriate - as discussed in details with son Eugenio Brantley over the phone
Plan to discharge to [facility] assisted living for respite care on 07/31/2025
Anticipated Discharge: Within 24 hours
Subjective/Interval History
-
Date of Service: July 30, 2025
Seen and examined. No new complaints. No acute overnight events.
Objective Data
-
Labs:
Laboratory Results
07/30/25
06:12
PT 22.0 H
INR 1.96
Vital Signs:
Vital Signs
Temp Pulse Resp BP Pulse Ox
97.8 F 81 23 136/72 96
07/30/25 12:00 07/30/25 12:01 07/30/25 12:01 07/30/25 12:01 07/30/25 10:20
I&O
07/29/25 07/30/25 07/31/25
06:59 06:59 06:59
Intake Total 1380 / 1380
Output Total 1150 / 1150
Balance 230 / 230
Physical Exam
-
General: Well Developed, Well Nourished and No Apparent Distress
HEENT: Normocephalic and Atraumatic
Respiratory: Clear to Auscultation
Cardiac: Regular Rhythm
GI: Soft, Nontender, Nondistended and Normal Bowel Sounds
Musculoskeletal: No Clubbing and No Cyanosis
Neuro: Awake and AO x 3
--- NOTE | 2025-07-30 15:51 | CM ---
F/U: PATRICK Sanfordkarin was able to complete the packet for New after out Hospitalist completed his portion, patient accepted, sent DC medication list, Now, Assisted Living will take patient tomorrow, son will mushroom picker his mother midday
tomorrow. PLAN: Assisted Living for Respite.
[2025-07-30 17:08] LABS: Glucose - Point of Care 120 mg/dl (70-99)
[2025-07-30] MEDS: LIPITOR 10 MG PO (17:22)
[2025-07-30] MEDS: NOVOLOG FLEXPEN-LOW RESISTANCE SC (17:22)
[2025-07-30 21:47] LABS: Glucose - Point of Care 134 mg/dl (70-99)
[2025-07-31 02:00] VITALS: BP 137/76
[2025-07-31 04:00] VITALS: BP 158/62
[2025-07-31 05:15] VITALS: BMI 28.4
[2025-07-31 05:33] LABS: INR 2.41; PT 25.9 Sec (11.4-14.6)
[2025-07-31 06:00] VITALS: BP 157/76
--- NOTE | 2025-07-31 06:20 | PTCARENOTE ---
Received pt at change of shift. Pt oriented x3 but forgetful. Very anxious to be discharged today. Assessment as documented. Bed alarm active. No events noted overnight.
[2025-07-31 08:00] VITALS: BP 154/68
[2025-07-31 08:27] LABS: Glucose - Point of Care 109 mg/dl (70-99)
[2025-07-31] MEDS: PROTONIX 20 MG PO (08:28)
[2025-07-31] MEDS: NOVOLOG FLEXPEN-LOW RESISTANCE SC (08:28)
[2025-07-31] MEDS: COUMADIN 5 MG PO (08:28)
[2025-07-31 10:24] VITALS: BP 146/80
--- NOTE | 2025-07-31 11:10 | W.DCSUMMARY ---
Discharge Summary
Discharge Data
Date of Admission: 07/25/25
Date of Discharge: 07/31/25
-
Pending Results: No
Hospital Course
85yo F with PMHX of Afib on Coumadin (due to insurance issues), HTN, DM, HLD, progressive cognitive decline
Presented from home after being found on the floor and was unable to stand up. It was noted cognition has been fluctuating with frequent visual hallucinations. Noted to have increased amount of falls. Trauma workup negative in the ED. Had MRI
without acute stroke or bleed. Seen by neurology that suspects this could be related to vascular parkinsonism that is not treated with carbidopa-levodopa along with a component of dementia. Additionally had a EEG which did not demonstrate
epileptic activity. PT recommended physical therapy at assisted living facility.
Needs neuropsychiatric follow-up for formal diagnosis of dementia
Head CT
IMPRESSION:
1. 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
2. Mild diffuse cerebral and cerebellar volume loss.
C-spine CT
IMPRESSION:
1. SEVERE DISCOGENIC DEGENERATIVE DISEASE at C5/C6 and C6/C7 with large disc-osteophyte complexes causing MODERATE SPINAL CORD COMPRESSION and central canal stenosis. Severe bilateral neural foraminal narrowing at C5/C6 and C6/C7.
2. Complete osseous fusion across the right C3/C4 and left C4/C5 facet joints secondary to chronic facet joint arthrosis.
3. Severe degenerative disease of the atlantodens articulation causing mild spinal cord compression and central canal stenosis.
CXR
IMPRESSION:
Findings concerning for mild CHF. However, limited inspiration. Clinical and laboratory correlation recommended.
CTHead
IMPRESSION:
No acute intracranial abnormality noted.
Mild atrophy. Stable
Severe periventricular small vessel ischemic disease. Stable
MRI Brain
IMPRESSION:
1. No MRI evidence for acute infarct or intracranial hemorrhage.
2. 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
3. Mild diffuse cerebral and cerebellar volume loss.
Seen and examined on day of discharge which was 07/31/2025. No new complaints. No acute overnight events.
General: Well Developed, Well Nourished and No Apparent Distress
HEENT: Normocephalic and Atraumatic
Respiratory: Clear to Auscultation
Cardiac: Regular Rhythm
GI: Soft, Nontender, Nondistended and Normal Bowel Sounds
Musculoskeletal: No Clubbing and No Cyanosis
Neuro: Awake and AO x 3
More than 30 minutes spent in discharge including
Final examination of the patient
Summarizing hospital stay
Instructions for continuing care to all relevant caregivers
Preparation of discharge records, prescriptions, and referral forms
Total time spent (in minutes): 33mins
Discharge Plan
-
Patient Disposition: Jail/SNF
Discharge Diagnosis/Procedures: Fall
Progressive ambulatory dysfunction
Vascular parkinsonism
Asymptomatic bacteriuria
Afib
HFpEF, acute on chronic
Condition: Fair
Diet: As tolerated
Activity: As tolerated
Activity Restrictions/Additional Instructions:
Presented from home after being found on the floor and was unable to stand up. It was noted cognition has been fluctuating with frequent visual hallucinations. Noted to have increased amount of falls. Trauma workup negative in the ED. Had MRI
without acute stroke or bleed. Seen by neurology that suspects this could be related to vascular parkinsonism that is not treated with carbidopa-levodopa along with a component of dementia. Additionally had a EEG which did not demonstrate
epileptic activity. PT recommended physical therapy at assisted living facility.
Needs neuropsychiatric follow-up for formal diagnosis of dementia
Head CT
IMPRESSION:
1. 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
2. Mild diffuse cerebral and cerebellar volume loss.
C-spine CT
IMPRESSION:
1. SEVERE DISCOGENIC DEGENERATIVE DISEASE at C5/C6 and C6/C7 with large disc-osteophyte complexes causing MODERATE SPINAL CORD COMPRESSION and central canal stenosis. Severe bilateral neural foraminal narrowing at C5/C6 and C6/C7.
2. Complete osseous fusion across the right C3/C4 and left C4/C5 facet joints secondary to chronic facet joint arthrosis.
3. Severe degenerative disease of the atlantodens articulation causing mild spinal cord compression and central canal stenosis.
CXR
IMPRESSION:
Findings concerning for mild CHF. However, limited inspiration. Clinical and laboratory correlation recommended.
CTHead
IMPRESSION:
No acute intracranial abnormality noted.
Mild atrophy. Stable
Severe periventricular small vessel ischemic disease. Stable
MRI Brain
IMPRESSION:
1. No MRI evidence for acute infarct or intracranial hemorrhage.
2. 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
3. Mild diffuse cerebral and cerebellar volume loss.
Referrals:
Zana Lou DO [Family Provider, Family Practice]
Ander Lama MD [Active, Neurology] - in two to three weeks
Prescriptions:
New
warfarin [Jantoven] 5 mg Tablet
5 mg PO DAILY Qty: 30 0RF
Continued
metformin 500 mg Tablet
500 mg PO BID@0800,1700
simvastatin 10 mg Tablet
10 mg PO QPM
losartan 25 mg Tablet
25 mg PO BID
metoprolol succinate 25 mg Tablet Extended Release 24 Hr
25 mg PO BID Qty: 60 0RF
pantoprazole 20 mg tablet,delayed release (DR/EC)
20 mg PO DAILY
furosemide 20 mg tablet
20 mg PO DAILY
Discontinued
warfarin 3 mg tablet
3 mg PO DAILY
Rx Instructions:
take with 2mg to equal 5mg qd
warfarin 1 mg tablet
2 mg PO DAILY
Rx Instructions:
take with 3mg to equal 5mg qd
nitrofurantoin monohyd/m-cryst 100 mg capsule
100 mg PO BID
Rx Instructions:
started on 07/18/25 for 7 days
Discharge Orders:
Discharge Patient (As Directed); Ordered 07/31/25
Ordered By: Hector Hernandez
Discharge Date and Time
Print Language: COMORAN
--- NOTE | 2025-07-31 11:19 | CM ---
F/U: Patient is discharging to Assisted Living for Respite.
Report: #[phone].
IMM completed with son who is providing transport. PLAN: Assisted Living at [facility]- Respite.
[2025-07-31 11:30] VITALS: BP 150/70
[2025-07-31] MEDS: FLUZONE HIGH-DOSE 2025-26 0.5 ML IM (11:31)
--- NOTE | 2025-07-31 12:01 | PTCARENOTE ---
pt discharged to [facility]. report given to facility. discharge instructions and continuum of care given to pts son. flu shot given prior to discharge. pts son provided transportation.
== END 2025-07-31 12:18 | disposition home or self-care (01) ==
LOC: IMU 12:35
PROVIDERS: Physician Assistant Medical; ADMITTING PHYSICIAN Internal Medicine; ATTENDING PHYSICIAN Hospitalist; CONSULT PHYSICIAN Student in an Organized Health Care Education/Training Program; EMERGENCY PHYSICIAN Emergency Medicine; FAMILY PHYSICIAN Family Medicine
DX: I11.0 Hypertensive heart disease with heart failure (principal); I50.33 Acute on chronic diastolic (congestive) heart failure; R29.6 Repeated falls; R53.1 Weakness; D64.9 Anemia, unspecified; E87.1 Hypo-osmolality and hyponatremia; E83.42 Hypomagnesemia; E87.6 Hypokalemia; F03.90 Unspecified dementia, unspecified severity, without behavioral disturbance, psychotic disturbance, mood disturbance, and anxiety; E78.00 Pure hypercholesterolemia, unspecified; E11.9 Type 2 diabetes mellitus without complications; I67.81 Acute cerebrovascular insufficiency; I48.91 Unspecified atrial fibrillation; I49.3 Ventricular premature depolarization; M47.12 Other spondylosis with myelopathy, cervical region; M48.02 Spinal stenosis, cervical region; I70.90 Unspecified atherosclerosis; M85.2 Hyperostosis of skull; M43.22 Fusion of spine, cervical region; M25.78 Osteophyte, vertebrae; G31.9 Degenerative disease of nervous system, unspecified; I67.82 Cerebral ischemia; I08.1 Rheumatic disorders of both mitral and tricuspid valves; I70.0 Atherosclerosis of aorta; E87.29 Other acidosis; L50.9 Urticaria, unspecified; R90.82 White matter disease, unspecified; W19.XXXA Unspecified fall, initial encounter; Y93.9 Activity, unspecified; Y92.009 Unspecified place in unspecified non-institutional (private) residence as the place of occurrence of the external cause; Z60.2 Problems related to living alone; Z90.49 Acquired absence of other specified parts of digestive tract; Z79.01 Long term (current) use of anticoagulants; Z79.84 Long term (current) use of oral hypoglycemic drugs; Z87.440 Personal history of urinary (tract) infections; Z75.1 Person awaiting admission to adequate facility elsewhere; Z88.1 Allergy status to other antibiotic agents; Z88.5 Allergy status to narcotic agent; Z79.899 Other long term (current) drug therapy; Z91.81 History of falling; Z23 Encounter for immunization
CPT/HCPCS: 70450; 70553; 71045; 72125; 80048; 80053; 81003; 81015; 82550; 82607; 82728; 82746; 82805; 82962; 83540; 83550; 83615; 83735; 83880; 84100; 84443; 84484; 85025; 85045; 85610; 85730; 87077; 87086; 87186; 90662; 92507; 92523; 92610; 93005; 93306; 94660; 95816; 97129; 97163; 97167; 97530; 97535; 99285; A9575; G0008; G0378; J2916